=== PATIENT | female | born 1990 | race Caucasian/White ===

== ENCOUNTER 2018-01-14 11:29 | Emergency (ER) | payer BC ==
[2018-01-14] MEDS ORDERED: NA CHLORIDE 0.9% 1,000 ML ONE (12:31)
[2018-01-14 12:45] LABS: Absolute Lymphocytes (CBC) 2.3 K/uL (0.7-4.9); Absolute Monocytes 0.5 K/uL (0.1-1.3); Absolute Neutrophil 13.2 K/uL (1.8-8.0); Basophils % 0.9 % (0-1.3); Eosinophils % 0.4 % (0-4.4); Hematocrit 45.5 % (36.0-45.0); Lymphocytes % 14.2 % (15.3-44.8); MCH 31.3 pg (27.0-35.0); MPV 8.3 fL (7.6-11.3); RBC Red Blood Cell Count 4.79 M/uL (3.86-4.86)
[2018-01-14 12:57] LABS: Potassium 3.9 mEq/L (3.6-5.0)
[2018-01-14 12:58] LABS: Urine Bacteria 20-50 /HPF (<20); Urine Culture Reflex Order NOT NEEDED
[2018-01-14] MEDS ORDERED: INSULIN -REGULAR HUMAN 50 UNIT/0.5 ML ML ONE (14:10)
[2018-01-14] MEDS ORDERED: ONDANSETRON 4 MG/2 ML VIAL ONE (14:11)
[2018-01-14] MEDS ORDERED: FAMOTIDINE 20 MG/2 ML VIAL IV ONE (14:11)
[2018-01-14 15:15] LABS: BUN Blood Urea Nitrogen 17 mg/dL (6-20); Bicarbonate 19 mEq/L (21-31); Glucose Level 144 mg/dL (65-120); Potassium 3.7 mEq/L (3.6-5.0); Sodium Level 134 mEq/L (135-145)
--- NOTE | 2018-01-14 16:19 | EDPHYS ---
Physician Documentation [facility] Name: Roseann Rosen Age: 27 yrs Sex: Female : 1990 Arrival Date: 01/14/2018 Time: 11:29 Bed 8 Private MD: ED Physician Dorian Kumar HPI: 01/14 18:17 This 27 yrs old Female presents to ER via Ambulatory with complaints of kdr Vomiting. 18:17 The patient presents to the emergency department with nausea, that is mild, vomiting, kdr that is intermittent. Onset: The symptoms/episode began/occurred 3 day(s) ago. Possible causes: DKA. The symptoms are aggravated by nothing. The symptoms are alleviated by nothing. Associated signs and symptoms: Pertinent positives: nausea, vomiting. Severity of symptoms: At their worst the symptoms were mild in the emergency department the symptoms are unchanged. The patient has experienced similar episodes in the past, a few times. The patient has not recently seen a physician. LIBRARIAN HEAD: 12:04 LMP 12/18/2017 Historical: - Allergies: 12:04 No Known Allergies; - Home Meds: 12:04 Novolog 100 unit/mL Sub-Q soln [Active]; insulin pump Novolog [Active]; - PMHx: 12:04 Diabetes - IDDM; bone spurrs; - PSHx: 12:04 None; L wrist for bone spurr, L shoulder bone spurr,; wisdom teeth removal; ch - Immunization history:: Adult Immunizations up to date, Flu vaccine is not up to date. - Social history:: Smoking status: Patient uses tobacco products, smokes one-half pack cigarettes per day, Patient uses alcohol, weekly. Patient/guardian denies using street drugs. ROS: 18:17 Constitutional: Negative for fever, chills, and weight loss, Eyes: Negative for injury, kdr pain, redness, and discharge, Neck: Negative for injury, pain, and swelling, Cardiovascular: Negative for chest pain, palpitations, and edema, Respiratory: Negative for shortness of breath, cough, wheezing, and pleuritic chest pain, Back: Negative for injury and pain, : Negative for injury, bleeding, discharge, and swelling, MS/Extremity: Negative for injury and deformity, Skin: Negative for injury, rash, and discoloration, Neuro: Negative for headache, weakness, numbness, tingling, and seizure activity. Psych: Negative for depression, anxiety, suicide ideation, homicidal ideation, and hallucinations, Allergy/Immunology: Negative for hives, rash, and allergies, Hematologic/Lymphatic: Negative for swollen nodes, abnormal bleeding, and unusual bruising. 18:17 Endocrine: Positive for polyuria. Exam: 18:17 Constitutional: This is a well developed, well nourished patient who is awake, alert, kdr and in no acute distress. Head/Face: Normocephalic, atraumatic. Eyes: Pupils equal round and reactive to light, extra-ocular motions intact. Lids and lashes normal. Conjunctiva and sclera are non-icteric and not injected. Cornea within normal limits. Periorbital areas with no swelling, redness, or edema. Neck: Trachea midline, no thyromegaly or masses palpated, and no cervical lymphadenopathy. Supple, full range of motion without nuchal rigidity, or vertebral point tenderness. No Meningismus. Chest/axilla: Normal chest wall appearance and motion. Nontender with no deformity. No lesions are appreciated. Cardiovascular: Regular rate and rhythm with a normal S1 and S2. No gallops, murmurs, or rubs. Normal PMI, no JVD. No pulse deficits. Respiratory: Lungs have equal breath sounds bilaterally, clear to auscultation and percussion. No rales, rhonchi or wheezes noted. No increased work of breathing, no retractions or nasal flaring. Abdomen/GI: Soft, non-tender, with normal bowel sounds. No distension or tympany. No guarding or rebound. No evidence of tenderness throughout. Back: No spinal tenderness. No costovertebral tenderness. Full range of motion. Skin: Warm, dry with normal turgor. Normal color with no rashes, no lesions, and no evidence of cellulitis. MS/ Extremity: Pulses equal, no cyanosis. Neurovascular intact. Full, normal range of motion. Neuro: Awake and alert, GCS 15, oriented to person, place, time, and situation. Cranial nerves II-XII grossly intact. Motor strength 5/5 in all extremities. Sensory grossly intact. Cerebellar exam normal. Normal gait. Psych: Awake, alert, with orientation to person, place and time. Behavior, mood, and affect are within normal limits. Vital Signs: 12:04 BP 116 / 82; Pulse 122; Resp 14; Temp 98; Pulse Ox 99% on R/A; Weight 56.7 kg; Height 5 ch ft. (152.40 cm); Pain 8/10; 14:17 BP 110 / 66; Pulse 87; Resp 16 S; Pulse Ox 98% on R/A; Pain 8/10; sg 12:04 Body Mass Index 24.41 (56.70 kg, 152.40 cm) MDM: 16:18 Patient medically screened. kdr 18:17 Data reviewed: vital signs, nurses notes, lab test result(s). Counseling: I had a kdr detailed discussion with the patient and/or guardian regarding: the historical points, exam findings, and any diagnostic results supporting the discharge/admit diagnosis, lab results, the need for outpatient follow up. 01/14 12:29 Order name: CBC with Diff; Complete Time: 13:24 kdr 01/14 12:29 Order name: Chem 7; Complete Time: 13:24 kdr 01/14 12:34 Order name: Urine Microscopic Only; Complete Time: 13:24 jb1 01/14 12:34 Order name: Urine Culture [facility] 01/14 12:41 Order name: Urine Dipstick--Ancillary (enter results) bd 01/14 12:41 Order name: Urine --Ancillary (enter results) bd 01/14 12:29 Order name: Urine Dipstick-Ancillary (obtain specimen); Complete Time: 12:29 kdr 01/14 14:20 Order name: Chem 7: Draw 30 minutes after insulin and fluids complete; Complete Time: kdr 16:13 01/14 15:00 Order name: Glucose, Ancillary Testing; Complete Time: 16:13 EDWV 01/14 15:00 Order name: Glucose, Ancillary Testing; Complete Time: 16:13 EDWV 01/14 12:29 Order name: Urine Test (obtain specimen); Complete Time: 12:29 kdr Administered Medications: 12:36 Drug: NS 0.9% 1000 ml Route: IV; Rate: 1 bolus; Site: right forearm; sg 14:14 Drug: Zofran 4 mg Route: IVP; Site: right forearm; sg 15:00 Follow up: Response: No adverse reaction; Nausea is decreased sg 14:14 Drug: Pepcid 20 mg Route: IVP; Site: right forearm; sg 15:00 Follow up: Response: No adverse reaction; Nausea is decreased sg 14:14 Drug: Insulin Regular Human 4 units {Co-Signature: jacey (Jessica Duff RN).} Route: sg IVP; Site: right forearm; 15:00 Follow up: Response: No adverse reaction; Blood sugar is lowered; 139 sg Point of Care Testing: Blood Glucose: 12:15 Blood Glucose: 222 mg/dL; Ranges: Critical Glucose Levels:Adult <50 mg/dl or >400 mg/dl <40 mg/dl or >180 mg/dl Disposition: 01/14/18 16:18 Discharged to Home. Impression: Vomiting, Hyperglycemia, unspecified. - Condition is Stable. - Discharge Instructions: Hyperglycemia, Nausea and Vomiting, [id number], Blood Glucose Monitoring, Adult. - Prescriptions for Zofran 4 mg Oral Tablet - take 1 tablet by ORAL route every 12 hours As needed; 6 tablet. - Work release form, Medication Reconciliation Form, Thank You Letter form. - Follow up: Private Physician; When: 2 - 3 days; Reason: If symptoms return, Further diagnostic work-up, Recheck today's complaints, Continuance of care, Re-evaluation by your physician. - Problem is an acute exacerbation. - Symptoms have improved. Signatures: Dispatcher [employer] Zelda Walker RN RN Naveen Lofton RN RN sg Rittger, Kevin, MD MD [facility] Jessica mari Corrections: (The following items were deleted from the chart) 16:32 16:18 01/14/2018 16:18 Discharged to Home. Impression: Vomiting; Hyperglycemia, sg unspecified. Condition is Stable. Forms are Medication Reconciliation Form, Thank You Letter, Antibiotic Education, Prescription Opioid Use. Follow up: Private Physician; When: 2 - 3 days; Reason: If symptoms return, Further diagnostic work-up, Recheck today's complaints, Continuance of care, Re-evaluation by your physician. Problem is an acute exacerbation. Symptoms have improved. kdr
--- NOTE | 2018-01-14 16:19 | ER ---
Nurse's Notes [facility] Name: Roseann Rosen Age: 27 yrs Sex: Female : 1990 Arrival Date: 01/14/2018 Time: 11:29 Bed 8 Private MD: Diagnosis: Vomiting;Hyperglycemia, unspecified Presentation: 01/14 12:02 Presenting complaint: Patient states: "I am in DKA" blood sugars reading HI since Friday. vomiting for the past 3 days, "ketones in my urine over 160". Transition of care: patient was not received from another setting of care. Onset of symptoms was January 11, 2018. Initial Sepsis Screen: Does the patient meet any 2 criteria? No. Patient's initial sepsis screen is negative. Does the patient have a suspected source of infection? No. Patient's initial sepsis screen is negative. Care prior to arrival: None. 12:02 Method Of Arrival: Ambulatory 12:02 Acuity: DRE 2 Triage Assessment: 12:04 General: Appears in no apparent distress. uncomfortable, Behavior is calm, cooperative, appropriate for age. Pain: Complains of pain in throat Pain currently is 8 out of 10 on a pain scale. Neuro: No deficits noted. GI: Reports nausea, vomiting. HEALTHCARE APPLICATIONS ANALYST: 12:04 [facility] 12/18/2017 Historical: - Allergies: 12:04 No Known Allergies; - Home Meds: 12:04 Novolog 100 unit/mL Sub-Q soln [Active]; insulin pump Novolog [Active]; - PMHx: 12:04 Diabetes - IDDM; bone spurrs; - PSHx: 12:04 None; L wrist for bone spurr, L shoulder bone spurr,; wisdom teeth removal; - Immunization history:: Adult Immunizations up to date, Flu vaccine is not up to date. - Social history:: Smoking status: Patient uses tobacco products, smokes one-half pack cigarettes per day, Patient uses alcohol, weekly. Patient/guardian denies using street drugs. Screenin:10 Abuse screen: Denies threats or abuse. Denies injuries from another. Nutritional sg screening: No deficits noted. Tuberculosis screening: No symptoms or risk factors identified. Never had TB. Fall Risk None identified. Assessment: 12:10 General: Appears in no apparent distress. comfortable, well groomed, well developed, sg well nourished, Behavior is calm, cooperative, appropriate for age. Pain: Denies pain. Neuro: No deficits noted. Cardiovascular: Heart tones S1 S2 present Capillary refill is brisk in bilateral fingers Patient's skin is warm and dry. Chest pain is denied. Respiratory: Airway is patent Respiratory effort is even, unlabored, Respiratory pattern is regular, symmetrical, Breath sounds are clear. GI: Abdomen is flat, non-distended, Bowel sounds present X 4 quads. Reports nausea, vomiting. : No signs and/or symptoms were reported regarding the genitourinary system. EENT: No signs and/or symptoms were reported regarding the EENT system. Derm: Skin is pink, warm \\T\\ dry. Musculoskeletal: No signs and/or symptoms reported regarding the musculoskeletal system. 13:10 Reassessment: Patient appears in no apparent distress at this time. Patient and/or sg family updated on plan of care and expected duration. Pain level reassessed. Patient is alert, oriented x 3, equal unlabored respirations, skin warm/dry/pink. Patient denies pain at this time. Vital Signs: 12:04 BP 116 / 82; Pulse 122; Resp 14; Temp 98; Pulse Ox 99% on R/A; Weight 56.7 kg; Height 5 ch ft. (152.40 cm); Pain 8/10; 14:17 BP 110 / 66; Pulse 87; Resp 16 S; Pulse Ox 98% on R/A; Pain 8/10; sg 12:04 Body Mass Index 24.41 (56.70 kg, 152.40 cm) ED Course: 11:29 Patient arrived in ED. as 11:30 Dorian Kumar MD is Attending Physician. [facility] 12:03 Triage completed. 12:04 Arm band placed on left wrist. Patient placed in an exam room, on a stretcher. 12:15 Zelda Rivera, RN is Primary Nurse. 12:20 Naveen Lofton, RN is Primary Nurse. sg 12:34 Initial lab(s) drawn, by me, sent to lab. Urine collected: clean catch specimen, jb1 cloudy, gemini colored. Inserted saline lock: 22 gauge in right antecubital area, using aseptic technique. Blood collected. 12:50 Patient has correct armband on for positive identification. Bed in low position. Call sg light in reach. Side rails up X2. Pulse ox on. NIBP on. 12:50 No provider procedures requiring assistance completed. sg 14:44 Repeat lab(s) drawn. by me, sent to lab. sg 15:15 IV discontinued, intact, bleeding controlled, No redness/swelling at site. Pressure sg dressing applied. Administered Medications: 12:36 Drug: NS 0.9% 1000 ml Route: IV; Rate: 1 bolus; Site: right forearm; sg 14:14 Drug: Zofran 4 mg Route: IVP; Site: right forearm; sg 15:00 Follow up: Response: No adverse reaction; Nausea is decreased sg 14:14 Drug: Pepcid 20 mg Route: IVP; Site: right forearm; sg 15:00 Follow up: Response: No adverse reaction; Nausea is decreased sg 14:14 Drug: Insulin Regular Human 4 units {Co-Signature: sv (Jessica Duff RN).} Route: sg IVP; Site: right forearm; 15:00 Follow up: Response: No adverse reaction; Blood sugar is lowered; 139 sg Point of Care Testing: Blood Glucose: 12:15 Blood Glucose: 222 mg/dL; Ranges: Intake: Outcome: 16:18 Discharge ordered by . kdr 16:25 Discharged to home ambulatory, with family. sg 16:25 Condition: good 16:25 Discharge instructions given to patient, Instructed on discharge instructions, follow up and referral plans. safety practices, Demonstrated understanding of instructions, follow-up care, medications, Prescriptions given X 1. 16:32 Patient left the ED. sg Signatures: Roldan Lew jb1 Zelda Rivera RN RN Naveen Lofton RN RN Dorian Kumar MD MD kdr Martinez, Amelia as Jessica mari Corrections: (The following items were deleted from the chart) 13:53 12:10 GI: Abdomen is flat, non-distended, Bowel sounds present X 4 quads. sg sg
[2018-01-14 16:39] VITALS: TEMP 98
[2018-01-14 16:40] VITALS: BP 110/66; O2SAT 98
[2018-01-14 17:34] LABS: Urine Blood NEGATIVE (NEG); Urine Glucose 2+ (NEG); Urine Protein 1+ (NEG); Urine Specific Gravity 1.025 (1.005-1.030)
[2018-01-30] MEDS ORDERED: ONDANSETRON 4 MG/2 ML VIAL IV PRN (21:34)
[2018-01-30] MEDS ORDERED: INSULIN -REGULAR HUMAN 100 UNIT in NA CHLORIDE 0.9% 100 ML IV SCH (21:45)
[2018-01-30] MEDS ORDERED: D5 0.45 NS 1,000 ML IV SCH (22:00)
[2018-01-30] MEDS ORDERED: NACHLORIDE 0.45% 1,000 ML IV SCH (22:00)
--- OUTSIDE RECORDS SUMMARY | 2018-01-30 22:02 | XMS REPORT ---
:1990 Author Organization [facility] Address [address] [place] [address] Dr. Love [address] [place] [id number] Care Team Providers Name Role Phone RIKY [...] Reference Range Comments KETONES, BLOOD (BEAKER) (test xllg=6514) 0.4 mmol/L <0.4 BASIC METABOLIC [id number] 21:43:00 Test Item Value Reference Range Comments SODIUM (BEAKER) (test 141 meq/L 136-145 tiry=120) POTASSIUM (BEAKER) (test 2.9 meq/L 3.5-5.1 klev=618) CHLORIDE (BEAKER) (test 115 meq/L 98-107 tgpp=592) CO2 (BEAKER) (test 15 meq/L 22-29 peoy=245) BLOOD UREA NITROGEN 10 mg/dL 7-21 (BEAKER) (test laxs=085) CREATININE (BEAKER) (test 0.70 mg/dL 0.57-1.25 nunv=490) GLUCOSE RANDOM (BEAKER) 200 mg/dL 70-105 (test qmjb=428) CALCIUM (BEAKER) (test 7.1 mg/dL 8.4-10.2 zknl=026) EGFR (BEAKER) (test 103 mL/min/1.73 sq m ESTIMATED GFR IS NOT peii=7983) ACCURATE CREATININE CLEARANCE IN PREDICTING GLOMERULAR FILTRATION RATE. ESTIMATED GFR IS NOT APPLICABLE FOR DIALYSIS PATIENTS. URINALYSIS W/ [id number] 20:41:00 Test Item Value Reference Range Comments COLOR (BEAKER) (test rbyn=670) Light Yellow CLARITY (BEAKER) (test ldkn=935) Clear SPECIFIC GRAVITY UA (BEAKER) (test 1.015 1.001-1.035 mgwi=419) PH UA (BEAKER) (test umyj=042) 5.0 5.0-8.0 PROTEIN UA (BEAKER) (test uxaa=822) Negative Negative GLUCOSE UA (BEAKER) (test qllj=636) >1000 mg/dL Negative KETONES UA (BEAKER) (test gfgx=224) Negative Negative BILIRUBIN UA (BEAKER) (test ftud=313) Negative Negative BLOOD UA (BEAKER) (test weah=334) Negative Negative NITRITE UA (BEAKER) (test pcts=810) Negative Negative LEUKOCYTE ESTERASE UA (BEAKER) (test Negative Negative cfis=246) UROBILINOGEN UA (BEAKER) (test stfu=017) 0.2 mg/dL 0.2-1.0 RBC UA (BEAKER) (test rrxq=131) 0 /HPF WBC UA (BEAKER) (test ttmp=432) < /HPF BACTERIA (BEAKER) (test mjza=978) Rare SQUAMOUS EPITHELIAL (BEAKER) (test 1 /HPF zevu=976) SOURCE(BEAKER) (test iigv=4679) Urine, Clean Catch SCREEN, [id number] 20:32:00 Test Item Value Reference Range Comments TEST URINE (BEAKER) (test zzba=546) Negative POCT-GLUCOSE [id number] 20:10:00 Test Item Value Reference Range Comments POC-GLUCOSE METER (BEAKER) 348 mg/dL 70-110 TESTED AT [address] (test nusf=7627) [facility] [id number] BASIC METABOLIC [id number] 19:39:00 Test Item Value Reference Range Comments SODIUM (BEAKER) (test 132 meq/L 136-145 xpaj=169) POTASSIUM (BEAKER) (test 3.9 meq/L 3.5-5.1 xrwu=852) CHLORIDE (BEAKER) (test 100 meq/L 98-107 ashl=806) CO2 (BEAKER) (test 17 meq/L 22-29 wwkd=276) BLOOD UREA NITROGEN 13 mg/dL 7-21 (BEAKER) (test dtxx=241) CREATININE (BEAKER) (test 1.00 mg/dL 0.57-1.25 jddp=449) GLUCOSE RANDOM (BEAKER) 524 mg/dL 70-105 (test olic=166) CALCIUM (BEAKER) (test 8.8 mg/dL 8.4-10.2 irqy=109) EGFR (BEAKER) (test mL/min/1.73 sq m INSUFFICIENT CLINICAL DATA nflx=8377) TO CALCULATE ESTIMATED GFR. CBC W/PLT COUNT & AUTO [id number] 19:08:00 Test Item Value Reference Range Comments WHITE BLOOD CELL COUNT (BEAKER) (test fffr=496) 10.0 K/ L 4.0-10.0 RED BLOOD CELL COUNT (BEAKER) (test sklw=423) 4.59 M/ L 4.00-5.00 HEMOGLOBIN (BEAKER) (test enex=806) 15.0 GM/DL 12.0-15.0 HEMATOCRIT (BEAKER) (test nkei=396) 43.3 % 36.0-45.0 MEAN CORPUSCULAR VOLUME (BEAKER) (test ehuw=302) 94.3 fL 82.0-99.0 MEAN CORPUSCULAR HEMOGLOBIN (BEAKER) (test 32.6 pg 27.0-33.0 tmyj=714) MEAN CORPUSCULAR HEMOGLOBIN CONC (BEAKER) (test 34.5 GM/DL 32.0-36.0 mtrh=114) RED CELL DISTRIBUTION WIDTH (BEAKER) (test 12.8 % 10.3-14.2 huro=799) PLATELET COUNT (BEAKER) (test ossf=707) 238 K/CU MM 150-430 MEAN PLATELET VOLUME (BEAKER) (test kjzw=766) 7.3 fL 6.5-10.5 NUCLEATED RED BLOOD CELLS (BEAKER) (test 0 /100 WBC 0-0 fwkf=283) NEUTROPHILS RELATIVE PERCENT (BEAKER) (test 63 % buzl=473) LYMPHOCYTES RELATIVE PERCENT (BEAKER) (test 33 % lkmy=596) MONOCYTES RELATIVE PERCENT (BEAKER) (test 3 % iavc=819) EOSINOPHILS RELATIVE PERCENT (BEAKER) (test 0 % hjfi=862) BASOPHILS RELATIVE PERCENT (BEAKER) (test 1 % dcty=168) NEUTROPHILS ABSOLUTE COUNT (BEAKER) (test 6.30 K/ L 1.80-8.00 hmjm=878) LYMPHOCYTES ABSOLUTE COUNT (BEAKER) (test 3.24 K/ L 1.48-4.50 nswm=113) MONOCYTES ABSOLUTE COUNT (BEAKER) (test 0.27 K/ L 0.00-1.30 tqyu=381) EOSINOPHILS ABSOLUTE COUNT (BEAKER) (test 0.05 K/ L 0.00-0.50 yyab=683) BASOPHILS ABSOLUTE COUNT (BEAKER) (test 0.09 K/ L 0.00-0.20 dpct=625) 0.00POCT-GLUCOSE [id number] 18:37:00 Test Item Value Reference Range Comments POC-GLUCOSE METER (BEAKER) 458 mg/dL 70-110 TESTED AT [facility] [address] (test kmqc=3997) [facility] [id number]
--- OUTSIDE RECORDS SUMMARY | 2018-01-30 22:02 | XMS REPORT | Clinical Summary ---
:1990 Author Organization [facility] Address [address] [place] [address] Phone Care Team Providers Name Role Phone [...]
[2018-01-31] MEDS ORDERED: CEFTRIAXONE 1 GM/NS 50 ML 1 GM/50 ML BAG IV SCH (09:00)
[2018-01-31] MEDS ORDERED: ENOXAPARIN 40 MG/0.4 ML SQ SCH (09:00)
== END 2018-01-14 16:32 | disposition home or self-care (01) ==
LOC: ER 11:29 → UNDOADMIN 01-30 21:59 → ERHOLD 01-30 21:59
DX: E11.65 Type 2 diabetes mellitus with hyperglycemia (principal); F17.210 Nicotine dependence, cigarettes, uncomplicated; Z79.4 Long term (current) use of insulin; Z96.41 Presence of insulin pump (external) (internal)
CPT/HCPCS: 36415; 80048; 81003; 81015; 81025; 82962; 85025; 87086; 87088; 96374; 96375; 99284; J0696; J2405; J7030

== ENCOUNTER 2018-01-30 16:09 | Inpatient (IN) | payer BC ==
--- OUTSIDE RECORDS SUMMARY | 2018-01-30 16:11 | XMS REPORT | Clinical Summary ---
:1990 Author Organization [facility] Address [address] [place] [address] Phone Care Team Providers Name Role Phone Unavailable Primary Care Provider Unavailable Allergies No Known Allergies Current Medications Prescription Sig. Disp. Refills Start Date End Date Status insulin aspart Inject subcutaneously 3 Active (NOVOLOG) 100 unit/mL (three) times daily InPn with meals. ibuprofen Take 600 mg by mouth Active (ADVIL,MOTRIN) 600 MG every 6 (six) hours as tablet needed for Pain. Active Problems Not on file Social History Tobacco Use Types Packs/Day Years Used Date Current Every Day Smoker Cigarettes 0.25 Tobacco Cessation: Ready to Quit: No Alcohol Use Drinks/Week oz/Week Comments Yes occasional Sex Assigned at Date Recorded Not on file Last Filed Vital Signs Not on file Plan of Treatment Not on file Results Not on fileafter 01/29/2017
--- OUTSIDE RECORDS SUMMARY | 2018-01-30 16:11 | XMS REPORT ---
:1990 [facility] Address [address] [place] [address] Dr. Love [address] [place] [id number] Care Team Providers Name Role Phone RIKY PRATHER Unavailable Unavailable Problems This patient has no known problems. Allergies, Adverse Reactions, Alerts This patient has no known allergies or adverse reactions. Medications This patient has no known medications. Results Test Description Test Time Test Comments Text Results Atomic Results Result Comments KETONE, BLOOD 2016-12-01 22:22:00 Test Item Value Reference Range Comments KETONES, BLOOD (BEAKER) (test obki=3270) 0.4 mmol/L <0.4 BASIC METABOLIC [id number] 21:43:00 Test Item Value Reference Range Comments SODIUM (BEAKER) (test 141 meq/L 136-145 kcid=140) POTASSIUM (BEAKER) (test 2.9 meq/L 3.5-5.1 dryc=298) CHLORIDE (BEAKER) (test 115 meq/L 98-107 ifyn=466) CO2 (BEAKER) (test 15 meq/L 22-29 fiiz=111) BLOOD UREA NITROGEN 10 mg/dL 7-21 (BEAKER) (test hyfr=730) CREATININE (BEAKER) (test 0.70 mg/dL 0.57-1.25 zwre=796) GLUCOSE RANDOM (BEAKER) 200 mg/dL 70-105 (test pwpo=948) CALCIUM (BEAKER) (test 7.1 mg/dL 8.4-10.2 abnl=056) EGFR (BEAKER) (test 103 mL/min/1.73 sq m ESTIMATED GFR IS NOT hmlk=8582) ACCURATE CREATININE CLEARANCE IN PREDICTING GLOMERULAR FILTRATION RATE. ESTIMATED GFR IS NOT APPLICABLE FOR DIALYSIS PATIENTS. URINALYSIS W/ [id number] 20:41:00 Test Item Value Reference Range Comments COLOR (BEAKER) (test isdp=962) Light Yellow CLARITY (BEAKER) (test ijav=895) Clear SPECIFIC GRAVITY UA (BEAKER) (test 1.015 1.001-1.035 rueb=127) PH UA (BEAKER) (test jnrj=085) 5.0 5.0-8.0 PROTEIN UA (BEAKER) (test xmaf=734) Negative Negative GLUCOSE UA (BEAKER) (test bqfx=539) >1000 mg/dL Negative KETONES UA (BEAKER) (test doeo=626) Negative Negative BILIRUBIN UA (BEAKER) (test nfmm=131) Negative Negative BLOOD UA (BEAKER) (test gkxt=041) Negative Negative NITRITE UA (BEAKER) (test clww=932) Negative Negative LEUKOCYTE ESTERASE UA (BEAKER) (test Negative Negative pesc=788) UROBILINOGEN UA (BEAKER) (test ebjj=470) 0.2 mg/dL 0.2-1.0 RBC UA (BEAKER) (test ssvo=631) 0 /HPF WBC UA (BEAKER) (test ylsz=107) < /HPF BACTERIA (BEAKER) (test uhzu=869) Rare SQUAMOUS EPITHELIAL (BEAKER) (test 1 /HPF umoy=067) SOURCE(BEAKER) (test dvue=3723) Urine, Clean Catch SCREEN, [id number] 20:32:00 Test Item Value Reference Range Comments TEST URINE (BEAKER) (test itni=231) Negative POCT-GLUCOSE [id number] 20:10:00 Test Item Value Reference Range Comments POC-GLUCOSE METER (BEAKER) 348 mg/dL 70-110 TESTED AT [address] (test mgaa=2969) [facility] [address] BASIC METABOLIC [id number] 19:39:00 Test Item Value Reference Range Comments SODIUM (BEAKER) (test 132 meq/L 136-145 xnpx=005) POTASSIUM (BEAKER) (test 3.9 meq/L 3.5-5.1 vdey=017) CHLORIDE (BEAKER) (test 100 meq/L 98-107 urri=205) CO2 (BEAKER) (test 17 meq/L 22-29 rbgn=307) BLOOD UREA NITROGEN 13 mg/dL 7-21 (BEAKER) (test ezfk=696) CREATININE (BEAKER) (test 1.00 mg/dL 0.57-1.25 foay=690) GLUCOSE RANDOM (BEAKER) 524 mg/dL 70-105 (test bfnw=328) CALCIUM (BEAKER) (test 8.8 mg/dL 8.4-10.2 clpr=249) EGFR (BEAKER) (test mL/min/1.73 sq m INSUFFICIENT CLINICAL DATA bhij=6211) TO CALCULATE ESTIMATED GFR. CBC W/PLT COUNT & AUTO [id number] 19:08:00 Test Item Value Reference Range Comments WHITE BLOOD CELL COUNT (BEAKER) (test awim=062) 10.0 K/ L 4.0-10.0 RED BLOOD CELL COUNT (BEAKER) (test iulg=848) 4.59 M/ L 4.00-5.00 HEMOGLOBIN (BEAKER) (test zhui=546) 15.0 GM/DL 12.0-15.0 HEMATOCRIT (BEAKER) (test wuke=092) 43.3 % 36.0-45.0 MEAN CORPUSCULAR VOLUME (BEAKER) (test xgzg=500) 94.3 fL 82.0-99.0 MEAN CORPUSCULAR HEMOGLOBIN (BEAKER) (test 32.6 pg 27.0-33.0 oymr=485) MEAN CORPUSCULAR HEMOGLOBIN CONC (BEAKER) (test 34.5 GM/DL 32.0-36.0 ezwe=140) RED CELL DISTRIBUTION WIDTH (BEAKER) (test 12.8 % 10.3-14.2 wlfd=587) PLATELET COUNT (BEAKER) (test eboq=004) 238 K/CU MM 150-430 MEAN PLATELET VOLUME (BEAKER) (test lokb=033) 7.3 fL 6.5-10.5 NUCLEATED RED BLOOD CELLS (BEAKER) (test 0 /100 WBC 0-0 fehn=004) NEUTROPHILS RELATIVE PERCENT (BEAKER) (test 63 % cund=605) LYMPHOCYTES RELATIVE PERCENT (BEAKER) (test 33 % xesp=408) MONOCYTES RELATIVE PERCENT (BEAKER) (test 3 % nbia=321) EOSINOPHILS RELATIVE PERCENT (BEAKER) (test 0 % qdxv=313) BASOPHILS RELATIVE PERCENT (BEAKER) (test 1 % loaw=188) NEUTROPHILS ABSOLUTE COUNT (BEAKER) (test 6.30 K/ L 1.80-8.00 tdjs=708) LYMPHOCYTES ABSOLUTE COUNT (BEAKER) (test 3.24 K/ L 1.48-4.50 gdrq=612) MONOCYTES ABSOLUTE COUNT (BEAKER) (test 0.27 K/ L 0.00-1.30 path=568) EOSINOPHILS ABSOLUTE COUNT (BEAKER) (test 0.05 K/ L 0.00-0.50 cxiq=258) BASOPHILS ABSOLUTE COUNT (BEAKER) (test 0.09 K/ L 0.00-0.20 osuw=012) 0.00POCT-GLUCOSE [id number] 18:37:00 Test Item Value Reference Range Comments POC-GLUCOSE METER (BEAKER) 458 mg/dL 70-110 TESTED AT [facility] [address] [facility] (test dqkj=2150) [facility] [id number]
[2018-01-30] MEDS ORDERED: NA CHLORIDE 0.9% 1,000 ML ONE ×5 (16:57→21:27)
[2018-01-30] MEDS ORDERED: ONDANSETRON 4 MG/2 ML VIAL ONE ×2 (16:57→19:49)
[2018-01-30 17:01] LABS: Absolute Lymphocytes (CBC) 0.8 K/uL (0.7-4.9); Absolute Neutrophil 26.1 K/uL (1.8-8.0); Basophils % 0.1 % (0-1.3); Hematocrit 47.6 % (36.0-45.0); Lymphocytes % 2.8 % (15.3-44.8); MCH 31.2 pg (27.0-35.0); MCV 96.7 fL (80-100); MPV 9.2 fL (7.6-11.3); Monocytes % 3.7 % (3.3-12.3); RBC Red Blood Cell Count 4.92 M/uL (3.86-4.86)
[2018-01-30 17:23] LABS: Arterial Blood Carboxyhemoglob 1.5 % (0-1.5); Blood Gas Oxyhemoglobin 95.2 % (94-97); Blood O2 Saturation 97.9 % (92-98.5)
[2018-01-30 17:25] LABS: Albumin 4.7 g/dL (3.2-5.5); Bilirubin Direct 0.3 mg/dL (0-0.2); Bilirubin Total 2.6 mg/dL (0.3-1.2)
[2018-01-30 17:27] LABS: Blood Morphology Comment NOT SEEN (NOT SEEN); Platelet Estimate ADEQ; Urine White Blood Cell Casts OK
[2018-01-30 17:29] LABS: Potassium 5.1 mEq/L (3.6-5.0)
--- NOTE | 2018-01-30 17:54 | RAD REPORT ---
EXAM DESCRIPTION: RAD - Chest Single View - 01/30/2018 5:45 pm CLINICAL HISTORY: Diabetes, nausea and vomiting. COMPARISON: None. FINDINGS: Portable technique limits examination quality. The lungs are grossly clear. The heart is normal in size. No displaced fractures. IMPRESSION: No acute intrathoracic process suspected.
[2018-01-30] MEDS ORDERED: INSULIN -REGULAR HUMAN 100 UNIT in NA CHLORIDE 0.9% 100 ML IV SCH (18:00)
[2018-01-30] MEDS ORDERED: PROMETHAZINE 25 MG/ML VIAL ONE ×2 (18:02→18:41)
[2018-01-30 18:34] LABS: Urine Blood TRACE (NEG); Urine Glucose 2+ (NEG); Urine Protein 1+ (NEG); Urine pH 5.5 (5.0-7.0)
[2018-01-30 18:38] LABS: Urine Amorphous Sediment 2+ /HPF (NONE SEEN); Urine Bacteria <20 /HPF (<20); Urine Culture Reflex Order NOT NEEDED; Urine Mucus 1+ /HPF (NONE SEEN); Urine RBC <5 /HPF (NONE SEEN)
[2018-01-30 20:05] LABS: Potassium 3.9 mEq/L (3.6-5.0)
--- NOTE | 2018-01-30 20:17 | RAD REPORT ---
EXAM DESCRIPTION: CT - Abdomen Pelvis Wo Contrast - 01/30/2018 8:05 pm CLINICAL HISTORY: Abdominal pain. COMPARISON: 06/18/2016 TECHNIQUE: CT imaging of the abdomen and pelvis was performed without contrast. Solid organ, bowel a nd vascular assessment is limited due to lack of IV and oral contrast. All CT scans are performed using dose optimization technique as appropriate and may include automated exposure control or mA/KV adjustment according to patient size. FINDINGS: The lower lung carey are clear. The liver, spleen, pancreas, adrenal glands and kidneys are within normal limits for a limited non-co ntrast examination. No bowel obstruction, free air, free fluid or abscess. The appendix is normal. Small fat containing umbilical hernia. Small amount of fluid is seen in the pelvis. Bilateral iliac wing osteochondromas again noted without significant change. IMPRESSION: No acute intra-abdominal or pelvic findings. A limited non-contrast examination was performed as detailed.
--- NOTE | 2018-01-30 20:20 | ER ---
Nurse's Notes [facility] Name: Roseann Rosen Age: 27 yrs Sex: Female : 1990 Arrival Date: 01/30/2018 Time: 16:12 Bed 7 Private MD: out of town, doctor Diagnosis: Type 1 diabetes mellitus with ketoacidosis without coma Presentation: 01/30 16:35 Presenting complaint: Patient states: " I'm type 1 and I haven't been able to kep ph anything down for 2 days." Pt reports N/V, denies diarrhea, also c/o "tightness" in stomach, reports BGL 77 [employer] PROF[employer]. Transition of care: patient was not received from another setting of care. Onset of symptoms was January 30, 2018. Risk Assessment: Do you want to hurt yourself or someone else? Patient reports no desire to harm self or others. Initial Sepsis Screen: Does the patient meet any 2 criteria? No. Patient's initial sepsis screen is negative. Does the patient have a suspected source of infection? No. Patient's initial sepsis screen is negative. Care prior to arrival: None. 16:35 Method Of Arrival: Wheelchair ph 16:35 Acuity: DRE 2 ph Triage Assessment: 19:41 GI: Reports lower abdominal pain, nausea. 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 - Social history:: Smoking status: Patient/guardian denies using tobacco. - Ebola Screening: : No symptoms or risks identified at this time. Screenin:07 Abuse screen: Denies threats or abuse. Denies injuries from another. Nutritional rv screening: No deficits noted. Tuberculosis screening: No symptoms or risk factors identified. Fall Risk None identified. Assessment: 17:03 General: Appears in no apparent distress. comfortable, Behavior is calm, cooperative, rv Reports nausea and vomiting. Pain: Denies pain. Neuro: Level of Consciousness is awake, alert, obeys commands, Oriented to person, place, time, situation. Cardiovascular: Heart tones S1 S2 present. Respiratory: Breath sounds are clear bilaterally. GI: Pt is actively vomiting bile. : No signs and/or symptoms were reported regarding the genitourinary system. EENT: No signs and/or symptoms were reported regarding the EENT system. Derm: No signs and/or symptoms reported regarding the dermatologic system. Musculoskeletal: No signs and/or symptoms reported regarding the musculoskeletal system. 17:04 Reassessment: BGL 451, UTILITY SALES AND SERVICE MANAGER Portillo notified. sv 17:41 Reassessment: Patient appears in no apparent distress at this time. pt requesting ice iw chips and nausea medication, MAHESH Nath notified. 18:21 Reassessment: Pt vomit clear brown fluid, dry heaving, MAHESH Nath notified, Phenergan hb administered as ordered. Insulin drip started at 5 units/hr. Family at bedside. 18:47 Reassessment: Pt actively vomiting in CT. MAHESH Nath notified, repeat Phenergan hb administered as ordered. 19:18 General: Appears in no apparent distress. comfortable, Behavior is calm, cooperative, ao appropriate for age. Pain: Denies pain. Neuro: Level of Consciousness is awake, alert, obeys commands, Oriented to person, place, time, situation, Moves all extremities. Speech is normal, Facial symmetry appears normal. Cardiovascular: Heart tones S1 S2 Capillary refill < 3 seconds Patient's skin is warm and dry. Respiratory: Airway is patent Respiratory effort is even, unlabored, Respiratory pattern is regular, symmetrical, Breath sounds are clear bilaterally. GI: Pt is actively vomiting bile. : No signs and/or symptoms were reported regarding the genitourinary system. EENT: No signs and/or symptoms were reported regarding the EENT system. Derm: No signs and/or symptoms reported regarding the dermatologic system. Musculoskeletal: Circulation, motion, and sensation intact. Range of motion: intact in all extremities. 20:06 Reassessment: Patient appears in no apparent distress at this time. Patient and/or ao family updated on plan of care and expected duration. Pain level reassessed. Patient is alert, oriented x 3, equal unlabored respirations, skin warm/dry/pink. Patient agree to go to CT. Patient keep refusing CT because she would not be able to lay flat. Patient has been medicated with Zofran. 21:10 Reassessment: Patient appears in no apparent distress at this time. Patient and/or ao family updated on plan of care and expected duration. Pain level reassessed. Patient is alert, oriented x 3, equal unlabored respirations, skin warm/dry/pink. 22:51 Reassessment: Patient appears in no apparent distress at this time. Patient and/or ao family updated on plan of care and expected duration. Pain level reassessed. Patient is alert, oriented x 3, equal unlabored respirations, skin warm/dry/pink. 23:50 Reassessment: Patient appears in no apparent distress at this time. Patient and/or ao family updated on plan of care and expected duration. Pain level reassessed. Patient is alert, oriented x 3, equal unlabored respirations, skin warm/dry/pink. 01/31 00:41 Reassessment: Patient is ER hold. See [facility] for future documentation. ao Vital Signs: 01/30 16:38 BP 137 / 87; Pulse 134; Resp 14; Temp 98.3; Pulse Ox 99% on R/A; Weight 56.7 kg; Height ph 5 ft. 1 in. (154.94 cm); 17:30 BP 140 / 90; Pulse 122; Resp 17; Pulse Ox 100% on R/A; Pain 2/10; hb 19:18 BP 154 / 97; Pulse 116; Resp 18; Pulse Ox 100% on R/A; Pain 0/10; ao 20:44 BP 153 / 98; Pulse 118; Resp 20; Pulse Ox 100% on R/A; Pain 0/10; ao 22:47 BP 126 / 75; Pulse 118; Resp 19; Pulse Ox 100% on R/A; ao 16:38 Body Mass Index 23.62 (56.70 kg, 154.94 cm) ph ED Course: 16:12 Patient arrived in ED. mr 16:12 out of town, doctor is Private Physician. mr 16:38 Triage completed. ph 16:39 Arm band placed on. ph 16:42 Portillo Costa NP is PHCP. pm1 16:42 Arash Santiago MD is Attending Physician. pm1 17:06 Inserted saline lock: 20 gauge in right antecubital area, using aseptic technique. rv 17:08 Patient has correct armband on for positive identification. Placed in gown. Bed in low rv position. Call light in reach. Side rails up X 1. Adult w/ patient. Pulse ox on. NIBP on. 17:43 Radiology exam delayed due to test not completed at this time. eh 17:43 X-ray completed. Portable x-ray completed in exam room. Patient tolerated procedure kp1 well. 17:45 Chest Single View XRAY In Process Unspecified. EDMS 17:59 Saray Walker RN is Primary Nurse. hb 18:06 Inserted saline lock: 20 gauge in left antecubital area, using aseptic technique. rv 18:[address] vm2 18:53 Radiology exam delayed due to at this time she cannot tolerate laying flat for the scan mw3 do to constant vomitting/dry heaving. Patient moved back from CT. 19:59 Primary Nurse role handed off by Saray Walker RN rg2 20:00 Dominic Robertson RN is Primary Nurse. ao 20:04 CT completed. Patient tolerated procedure well. Patient moved to CT via stretcher. mw3 Patient moved back from CT. 20:05 Abdomen In Process Unspecified. EDMS 20:18 Vitaliy Whatley MD is Hospitalizing Provider. pm1 01/31 00:41 No provider procedures requiring assistance completed. Patient admitted, IV remains in ao place. 08:52 Primary Nurse role handed off by Dominic Robertson, CARLOS tw2 08:52 Anaya Waller RN is Primary Nurse. tw2 12:42 attempted to call report to ICU-6 at this time, was told nurse will call me back. tw2 Administered Medications: Discontinued: NS 0.9% 1000 ml IV at 100 ml/hr continuous Discontinued: NS 0.9% with KCl 20 mEq/L 1000 ml IV at 200 ml/hr continuous 01/30 17:02 Drug: NS 0.9% 1000 ml Route: IV; Rate: 1000 ml; Site: right antecubital; rv 18:46 Follow up: Response: No change in condition; IV Status: Completed infusion rv 17:02 Drug: Zofran 4 mg Route: IVP; Site: right antecubital; rv 17:09 Follow up: Response: No adverse reaction; Nausea is decreased rv 17:59 Drug: NS 0.9% 1000 ml Route: IV; Rate: 1000 ml; Site: right antecubital; hb 18:10 Drug: Phenergan 12.5 mg Route: IVP; Site: left antecubital; hb 18:43 Follow up: Response: No adverse reaction; Nausea is decreased rv 18:18 Drug: Insulin Drip - (Insulin Regular Human 100 units, NS 0.9% 100 ml) {Co-Signature: rv hb (Saray Walker RN).} Route: IV; Rate: calculated rate; Site: right antecubital; 18:46 Drug: Phenergan 12.5 mg Route: IVP; Site: left antecubital; rv 20:29 Follow up: Response: No adverse reaction ao 19:17 CANCELLED (wrong saline): NS 0.45 % 1000 ml IV at 100 ml/hr continuous ao 19:37 Drug: NS 0.9% 1000 ml Route: IV; Rate: 100 ml/hr; Site: right antecubital; ao 19:55 Drug: Zofran 4 mg Route: IVP; Site: left antecubital; ao 20:28 Follow up: Response: No adverse reaction ao 20:28 Drug: NS 0.9% with KCl 20 mEq/L 1000 ml Route: IV; Rate: 200 ml/hr; Site: right ao antecubital; 21:52 Follow up: IV Status: Completed infusion ao 20:46 Drug: NS 0.9% 1000 ml Route: IV; Rate: 1000 ml; Site: left antecubital; ao 21:48 Follow up: IV Status: Completed infusion ao 21:47 Drug: NS 0.9% 1000 ml Route: IV; Rate: 1000 ml; Site: left antecubital; ao 22:15 Drug: D5-1/2 NS 1000 ml Route: IV; Rate: 150 ml/hr; Site: left antecubital; ao Point of Care Testing: Blood Glucose: 17:02 Blood Glucose: 451 mg/dL; sv 19:37 Blood Glucose: 465 mg/dL; ao 20:35 Blood Glucose: 264 mg/dL; ao 21:46 Blood Glucose: 134 mg/dL; ao 23:01 Blood Glucose: 226 mg/dL; ao 01/31 00:17 Blood Glucose: 200 mg/dL; ao Ranges: Outcome: 01/30 20:20 Decision to Hospitalize by Provider. pm1 01/31 00:41 Admitted to ER Hold. Please see [facility] for further documentation. ao Condition: stable Instructed on the need for admit. 13:07 Patient left the ED. tw2 Signatures: Dispatcher [employer] EDLuther Marinelli rg2 Jessica Duff, RN RN Rhina Lomax mr Vega, Radha Huang, RN CARLOS Jackeline Tee RN RN Dominic Robertson RN CARLOS ao Portillo Costa, UTILITY SALES AND SERVICE MANAGER UTILITY SALES AND SERVICE MANAGER pm1 Saray Walker RN RN Anaya Waller RN RN tw2 Rosie Montemayor 2 Meche Rosado kp1 Narcisa Fregoso mw3 Dickson Gray RN CARLOS Saray Walker RN Corrections: (The following items were deleted from the chart) 01/30 16:39 16:35 Acuity: DRE 3 ph ph
--- NOTE | 2018-01-30 20:21 | EDPHYS ---
Physician Documentation [facility] Name: Roseann Rosen Age: 27 yrs Sex: Female : 1990 Arrival Date: 01/30/2018 Time: 16:12 Bed 7 Private MD: out of town, doctor ED Physician Arash Santiago HPI: 01/30 18:35 This 27 yrs old Female presents to ER via Wheelchair with complaints of pm1 Vomiting. 18:35 The patient presents to the emergency department with nausea, vomiting, that is pm1 continuous. Onset: The symptoms/episode began/occurred yesterday morning. Possible causes: Alcohol and diabetes - DKA. The symptoms are aggravated by nothing. The symptoms are alleviated by nothing. Associated signs and symptoms: Pertinent positives: abdominal pain, nausea, vomiting, sore throat from the vomiting, Pertinent negatives: diarrhea, dysuria, fever. Severity of symptoms: in the emergency department the symptoms are unchanged. The patient has experienced similar episodes in the past, several times. The patient has not recently seen a physician, [place] until Friday. Patient with onset of continuous vomiting yesterday morning. Patient is type one diabetic and has not used her insulin pump for the last month. Currently managing her DM with regular insulin SQ. After vomiting, patient with onset of generalized abdominal pain and sore throat. 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 - Social history:: Smoking status: Patient/guardian denies using tobacco. - Ebola Screening: : No symptoms or risks identified at this time. ROS: 18:45 Constitutional: Negative for fever, chills, and weight loss, Eyes: Negative for injury, pm1 pain, redness, and discharge, ENT: Negative for injury, pain, and discharge, Neck: Negative for injury, pain, and swelling, Cardiovascular: Negative for chest pain, palpitations, and edema, Respiratory: Negative for shortness of breath, cough, wheezing, and pleuritic chest pain. 18:45 Back: Negative for injury and pain, : Negative for injury, bleeding, discharge, and swelling, MS/Extremity: Negative for injury and deformity, Skin: Negative for injury, rash, and discoloration, Neuro: Negative for headache, weakness, numbness, tingling, and seizure. 18:45 Abdomen/GI: Positive for abdominal pain, nausea and vomiting, Negative for diarrhea, constipation, hematemesis, black/tarry stool. Exam: 18:45 Constitutional: This is a well developed, well nourished patient who is awake, alert, pm1 and in no acute distress. Head/Face: Normocephalic, atraumatic. Neck: Trachea midline, no thyromegaly or masses palpated, and no cervical lymphadenopathy. Supple, full range of motion without nuchal rigidity, or vertebral point tenderness. No Meningismus. Chest/axilla: Normal chest wall appearance and motion. Nontender with no deformity. No lesions are appreciated. Cardiovascular: Regular rate and rhythm with a normal S1 and S2. No gallops, murmurs, or rubs. Normal PMI, no JVD. No pulse deficits. Respiratory: Lungs have equal breath sounds bilaterally, clear to auscultation and percussion. No rales, rhonchi or wheezes noted. No increased work of breathing, no retractions or nasal flaring. 18:45 Back: No spinal tenderness. No costovertebral tenderness. Full range of motion. Skin: Warm, dry with normal turgor. Normal color with no rashes, no lesions, and no evidence of cellulitis. MS/ Extremity: Pulses equal, no cyanosis. Neurovascular intact. Full, normal range of motion. 18:45 Abdomen/GI: Inspection: abdomen appears normal, Bowel sounds: normal, Palpation: mild abdominal tenderness, diffuse, mass, is not appreciated, rebound tenderness, is not appreciated. 18:45 Neuro: Orientation: is normal, Motor: is normal, moves all fours, Sensation: is normal, no obvious gross deficits. Vital Signs: 16:38 BP 137 / 87; Pulse 134; Resp 14; Temp 98.3; Pulse Ox 99% on R/A; Weight 56.7 kg; Height ph 5 ft. 1 in. (154.94 cm); 17:30 BP 140 / 90; Pulse 122; Resp 17; Pulse Ox 100% on R/A; Pain 2/10; hb 19:18 BP 154 / 97; Pulse 116; Resp 18; Pulse Ox 100% on R/A; Pain 0/10; ao 20:44 BP 153 / 98; Pulse 118; Resp 20; Pulse Ox 100% on R/A; Pain 0/10; ao 22:47 BP 126 / 75; Pulse 118; Resp 19; Pulse Ox 100% on R/A; ao 16:38 Body Mass Index 23.62 (56.70 kg, 154.94 cm) ph MDM: 16:42 Patient medically screened. roseline 19:51 ED course: Pending CT scan prior to admission. Patient with episodes of vomiting prior pm1 to and during CT scans. 20:17 Data reviewed: vital signs. Data interpreted: Pulse oximetry: on room air is 100 %. pm1 Interpretation: normal. Counseling: I had a detailed discussion with the patient and/or guardian regarding: the historical points, exam findings, and any diagnostic results supporting the discharge/admit diagnosis, lab results, the need for further work-up and treatment in the hospital, to return to the emergency department if symptoms worsen or persist or if there are any questions or concerns that arise at home. 20:29 ED course: increased insulin to 8 units/kg/hr. Serum glucose did not drop 50 to 70 pm1 mg/dL at 0.1 unit/kg/hr initiation. 01/30 16:49 Order name: Basic Metabolic Panel; Complete Time: 17:39 pm1 01/30 16:49 Order name: CBC with Diff; Complete Time: 17:28 pm01/30 16:49 Order name: Hepatic Function; Complete Time: 17:39 pm1 01/30 16:49 Order name: Lipase; Complete Time: 17:39 pm1 01/30 16:49 Order name: Urine Microscopic Only; Complete Time: 18:45 pm1 01/30 17:05 Order name: Glucose, Ancillary Testing; Complete Time: 17:08 EDMS 01/30 17:08 Order name: CBC Smear Scan; Complete Time: 17:28 EDMS 01/30 17:12 Order name: ABG; Complete Time: 17:36 pm1 01/30 17:12 Order name: Ketone, Serum; Complete Time: 19:01 pm1 01/30 17:12 Order name: Urine Culture pm01/30 17:12 Order name: Blood Culture Adult (2) pm01/30 17:19 Order name: Procalcitonin; Complete Time: 19:01 pm1 01/30 17:19 Order name: Lactate; Complete Time: 18:10 pm1 01/30 18:25 Order name: Urine Dipstick--Ancillary (enter results); Complete Time: 18:45 ag 01/30 18:25 Order name: Urine --Ancillary (enter results); Complete Time: 18:45 ag 01/30 18:57 Order name: Glucose, Ancillary Testing; Complete Time: 19:01 EDMS 01/30 19:16 Order name: BMP; Complete Time: 20:13 ao 01/30 20:17 Order name: Magnesium; Complete Time: 20:39 fc 01/30 20:17 Order name: Phosphorus; Complete Time: 20:39 fc 01/30 22:26 Order name: Basic Metabolic Panel; Complete Time: 23:53 EDMS 01/31 00:15 Order name: Glucose, Ancillary Testing; Complete Time: 01:05 EDMS 01/31 00:15 Order name: Glucose, Ancillary Testing; Complete Time: 01:05 EDMS 01/31 00:15 Order name: Glucose, Ancillary Testing; Complete Time: 01:05 EDMS 01/31 00:15 Order name: Glucose, Ancillary Testing; Complete Time: 01:05 EDMS 01/31 00:15 Order name: Glucose, Ancillary Testing; Complete Time: 01:05 EDMS 01/31 02:11 Order name: Acetone Level; Complete Time: 03:05 EDMS 01/31 02:20 Order name: Basic Metabolic Panel; Complete Time: 03:05 EDMS 01/31 02:27 Order name: BNP B-Type Natriuretic Peptide; Complete Time: 03:05 EDMS 01/31 05:40 Order name: Phosphorus EDMS 01/31 06:16 Order name: Liver (Hepatic) Function EDMS 01/30 16:49 Order name: Glucose Level; Complete Time: 17:07 pm1 01/30 17:20 Order name: Chest Single View XRAY; Complete Time: 18:00 pm1 01/30 17:46 Order name: Abdomen ; Complete Time: 20:23 EDNM 01/31 06:45 Order name: Acetone Level EDNM 01/31 06:49 Order name: Basic Metabolic Panel [facility] 01/31 08:54 Order name: Glucose, Ancillary Testing [facility] 01/31 08:54 Order name: Glucose, Ancillary Testing [facility] 01/31 08:54 Order name: Glucose, Ancillary Testing [facility] 01/31 08:54 Order name: Glucose, Ancillary Testing [facility] 01/31 08:54 Order name: Glucose, Ancillary Testing [facility] 01/31 08:54 Order name: Glucose, Ancillary Testing [facility] 01/31 12:05 Order name: Basic Metabolic Panel [facility] 01/31 12:05 Order name: Phosphorus [facility] 01/31 12:05 Order name: T4 Free [facility] 01/31 12:05 Order name: Magnesium [facility] 01/31 12:05 Order name: Thyroid Stimulating Hormone [facility] 01/31 12:05 Order name: Folic Acid, Serum (Folate) [facility] 01/31 12:05 Order name: Vitamin B12 Level [facility] 01/30 16:49 Order name: Urine Test (obtain specimen); Complete Time: 18:19 pm01/30 16:49 Order name: IV Saline Lock; Complete Time: 17:03 pm01/30 16:49 Order name: Labs collected and sent; Complete Time: 17:03 pm01/30 16:49 Order name: Urine Dipstick-Ancillary (obtain specimen); Complete Time: 18:20 pm01/30 17:12 Order name: Straight Cath - Urine; Complete Time: 18:19 pm01/30 19:16 Order name: Fingerstick Glucose; Complete Time: 19:36 ao Administered Medications: Discontinued: NS 0.9% 1000 ml IV at 100 ml/hr continuous Discontinued: NS 0.9% with KCl 20 mEq/L 1000 ml IV at 200 ml/hr continuous 17:02 Drug: NS 0.9% 1000 ml Route: IV; Rate: 1000 ml; Site: right antecubital; rv 18:46 Follow up: Response: No change in condition; IV Status: Completed infusion rv 17:02 Drug: Zofran 4 mg Route: IVP; Site: right antecubital; rv 17:09 Follow up: Response: No adverse reaction; Nausea is decreased rv 17:59 Drug: NS 0.9% 1000 ml Route: IV; Rate: 1000 ml; Site: right antecubital; hb 18:10 Drug: Phenergan 12.5 mg Route: IVP; Site: left antecubital; hb 18:43 Follow up: Response: No adverse reaction; Nausea is decreased rv 18:18 Drug: Insulin Drip - (Insulin Regular Human 100 units, NS 0.9% 100 ml) {Co-Signature: rv hb (Saray Walker RN).} Route: IV; Rate: calculated rate; Site: right antecubital; 18:46 Drug: Phenergan 12.5 mg Route: IVP; Site: left antecubital; rv 20:29 Follow up: Response: No adverse reaction ao 19:17 CANCELLED (wrong saline): NS 0.45 % 1000 ml IV at 100 ml/hr continuous ao 19:37 Drug: NS 0.9% 1000 ml Route: IV; Rate: 100 ml/hr; Site: right antecubital; ao 19:55 Drug: Zofran 4 mg Route: IVP; Site: left antecubital; ao 20:28 Follow up: Response: No adverse reaction ao 20:28 Drug: NS 0.9% with KCl 20 mEq/L 1000 ml Route: IV; Rate: 200 ml/hr; Site: right ao antecubital; 21:52 Follow up: IV Status: Completed infusion ao 20:46 Drug: NS 0.9% 1000 ml Route: IV; Rate: 1000 ml; Site: left antecubital; ao 21:48 Follow up: IV Status: Completed infusion ao 21:47 Drug: NS 0.9% 1000 ml Route: IV; Rate: 1000 ml; Site: left antecubital; ao 22:15 Drug: D5-1/2 NS 1000 ml Route: IV; Rate: 150 ml/hr; Site: left antecubital; ao Point of Care Testing: Blood Glucose: 17:02 Blood Glucose: 451 mg/dL; sv 19:37 Blood Glucose: 465 mg/dL; ao 20:35 Blood Glucose: 264 mg/dL; ao 21:46 Blood Glucose: 134 mg/dL; ao 23:01 Blood Glucose: 226 mg/dL; ao 01/31 00:17 Blood Glucose: 200 mg/dL; ao Ranges: Critical Glucose Levels:Adult <50 mg/dl or >400 mg/dl <40 mg/dl or >180 mg/dl Disposition: 01/30/18 20:20 Hospitalization ordered by Vitaliy Whatley for Inpatient Admission. Preliminary diagnosis is Type 1 diabetes mellitus with ketoacidosis without coma. - Bed requested for Intensive Care Unit. - Status is Inpatient Admission. tw2 - Condition is Fair. - Problem is new. - Symptoms have improved. UTI on Admission? No Addendum: 02/03/2018 09:15 Co-signature as Attending Physician, Arash Santiago MD I agree with the assessment and c noel plan of care. Signatures: Dispatcher [employer] EDMS Luther Gonzáles rg2 Daniela Feldman, RN CARLOS dw Arash Santiago MD MD cha Hall, Patricia, RN RN Dominic Robertson RN RN ao Portillo Costa, MAHESH WEIGHER AND MIXER pm1 Saray Walker RN RN hb Anaya Waller RN CARLOS tw2 Dickson Gray RN RN Saray ingram Corrections: (The following items were deleted from the chart) 01/30 17:46 17:19 Abdomen Pelvis W Con+[id number].[id number] ordered. EDNM EDNM 19:17 19:15 NS 0.45 % 1000 ml IV at 100 ml/hr continuous ordered. ao ao 20:24 20:20 Hospitalization Ordered by Vitaliy Whatley MD for Inpatient Admission. Preliminary pm1 diagnosis is Type 1 diabetes mellitus with ketoacidosis without coma. Bed requested for Telemetry/MedSurg (Inpatient). Status is Inpatient Admission. Condition is Fair. Problem is new. Symptoms have improved. UTI on Admission? No. pm1 01/31 00:32 01/30 20:24 01/30/2018 20:20 Hospitalization Ordered by Vitaliy Whatley MD for Inpatient rg2 Admission. Preliminary diagnosis is Type 1 diabetes mellitus with ketoacidosis without coma. Bed requested for Intensive Care Unit. Status is Inpatient Admission. Condition is Fair. Problem is new. Symptoms have improved. UTI on Admission? No. pm1 01/31 12:35 00:32 01/30/2018 20:20 Hospitalization Ordered by Vitaliy Whatley MD for Inpatient dw Admission. Preliminary diagnosis is Type 1 diabetes mellitus with ketoacidosis without coma. Bed requested for [facility] ER HOLD. Status is Inpatient Admission. Condition is Fair. Problem is new. Symptoms have improved. UTI on Admission? No. rg2 12:35 12:35 01/30/2018 20:20 Hospitalization Ordered by Vitaliy Whatley MD for Inpatient dw Admission. Preliminary diagnosis is Type 1 diabetes mellitus with ketoacidosis without coma. Bed requested for Intensive Care Unit. Status is Inpatient Admission. Condition is Fair. Problem is new. Symptoms have improved. UTI on Admission? No. dw 13:07 12:35 01/30/2018 20:20 Hospitalization Ordered by Vitaliy Whatley MD for Inpatient tw2 Admission. Preliminary diagnosis is Type 1 diabetes mellitus with ketoacidosis without coma. Bed requested for Intensive Care Unit. Status is Inpatient Admission. Condition is Fair. Problem is new. Symptoms have improved. UTI on Admission? No. dw
[2018-01-30] MEDS ORDERED: NS KCL 20MEQ 1,000 ML IV ONE (20:22)
[2018-01-30 20:35] LABS: Phosphorus 3.2 mg/dL (2.5-4.3)
[2018-01-30] MEDS ORDERED: D5 0.45 NS 1,000 ML IV ONE (21:55)
[2018-01-30 22:25] LABS: Potassium 3.5 mEq/L (3.6-5.0)
[2018-01-30] MEDS: D5 0.45 NS 1,000 ML IV SCH (23:00)
[2018-01-30] MEDS ORDERED: CEFTRIAXONE 1 GM/NS 50 ML 1 GM/50 ML BAG IV SCH (23:00)
[2018-01-31] MEDS ORDERED: CEFTRIAXONE/SWI 1gm 1 GM/10 ML SYR ONE
[2018-01-31] MEDS ORDERED: ONDANSETRON 4 MG/2 ML VIAL ONE ×4 (00:14→10:47)
[2018-01-31] MEDS: ONDANSETRON 4 MG/2 ML VIAL IV PRN ×6 (00:16→22:17)
[2018-01-31 02:19] LABS: BUN Blood Urea Nitrogen 16 mg/dL (6-20); Glucose Level 131 mg/dL (65-120)
[2018-01-31 02:33] LABS: Bicarbonate 15 mEq/L (21-31); Potassium 3.3 mEq/L (3.6-5.0); Sodium Level 143 mEq/L (135-145)
[2018-01-31] MEDS: D5 0.45 NS 1,000 ML IV SCH ×9 (04:00→23:30)
[2018-01-31] MEDS ORDERED: METOCLOPRAMIDE 10 MG/2mL INJ IV SCH (04:00)
[2018-01-31] MEDS ORDERED: D5 0.45 NS 1,000 ML IV ONE (04:43)
[2018-01-31] MEDS ORDERED: METOCLOPRAMIDE 10 MG/2mL INJ ONE ×2 (05:22→08:22)
[2018-01-31 06:15] LABS: Albumin 3.1 g/dL (3.2-5.5); Bilirubin Direct 0.2 mg/dL (0-0.2)
[2018-01-31] MEDS: KCL 20 MEQ/100 mL IVPB 20 MEQ/100 ML BAG IV SCH ×4 (06:16→23:12)
[2018-01-31 06:48] LABS: BUN Blood Urea Nitrogen 16 mg/dL (6-20); Bicarbonate 18 mEq/L (21-31); Glucose Level 196 mg/dL (65-120); Potassium 3.7 mEq/L (3.6-5.0); Sodium Level 140 mEq/L (135-145)
[2018-01-31] MEDS ORDERED: GLUCAGON 1 MG/VIAL IM PRN (06:48)
[2018-01-31] MEDS ORDERED: D50W 25 GM/50 ML SYRINGE IV PRN (06:48)
[2018-01-31] MEDS ORDERED: INSULIN -REGULAR HUMAN 100 UNIT in NA CHLORIDE 0.9% 100 ML IV SCH (07:30)
[2018-01-31] MEDS ORDERED: INSULIN DETEMIR 100 UNIT/1 ML INSULIN SQ SCH (08:00)
[2018-01-31] MEDS: METOCLOPRAMIDE 10 MG/2mL INJ IV SCH ×3 (08:35→20:14)
[2018-01-31] MEDS: ENOXAPARIN 40 MG/0.4 ML SQ SCH (09:00)
[2018-01-31] MEDS ORDERED: ENOXAPARIN 40 MG/0.4 ML SQ ONE (09:22)
[2018-01-31 12:05] LABS: Folic Acid, (Folate) 4.7 ng/ml (>5.21); Magnesium 1.8 mg/dL (1.8-2.5); Phosphorus 1.3 mg/dL (2.5-4.3); Thyroid Stimulating Hormone 1.31 uIU/mL (0.34-5.60)
[2018-01-31 12:10] LABS: Potassium 3.3 mEq/L (3.6-5.0)
[2018-01-31] MEDS ORDERED: NA CHLORIDE 0.9% 1,000 ML ONE (12:10)
[2018-01-31] MEDS ORDERED: NA CHLORIDE 0.9% 1,000 ML IV ONE (12:20)
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
--- NOTE | 2018-01-31 12:53 | P.PN ---
Date of Service: 01/31/18 Came by this morning to reassess patient. Plan was to advance patient to a clear liquid diet. However, she was having persistent nausea and vomiting. I spoke to the nurse, Anaya, in the emergency room and I was informed that her insulin drip had been discontinued. Patient was not given any long-acting insulin. Her IV fluids had also been stopped. This normally leads to worsening ketoacidosis. We restarted the insulin drip and the IV fluids. If patient's blood sugars decrease then plan would be to increase or bolus dextrose instead of stopping the insulin drip as patient will start going into the ketosis without any insulin in her system. This was explained to the nurse , and we spoke also about reassessing diet at lunch time as she will not be able to tolerate her breakfast. We will give her Reglan as well as additional antiemetics as needed. Hopefully, her nausea and vomiting will resolve and we can start her on a diet for lunch and give her long-acting insulin at that time. The nurse was told that we are to continue the insulin drip for 1 hr after giving her long-acting insulin. We can stop the insulin drip 1 hr after giving her a long-acting insulin.
[2018-01-31] MEDS ORDERED: POTASSIUM PHOS 20 MM in NA CHLORIDE 0.9% 500 ML IV ONE (13:00)
[2018-01-31] MEDS ORDERED: NA CHLORIDE 0.9% 1,000 ML IV SCH (13:00)
[2018-01-31 14:04] LABS: Absolute Lymphocytes (CBC) 1.1 K/uL (0.7-4.9); Absolute Neutrophil 16.8 K/uL (1.8-8.0); Basophils % 0.7 % (0-1.3); Hematocrit 34.6 % (36.0-45.0); Lymphocytes % 5.9 % (15.3-44.8); MCH 31.2 pg (27.0-35.0); MCV 96.6 fL (80-100); MPV 8.6 fL (7.6-11.3); Monocytes % 5.4 % (3.3-12.3); RBC Red Blood Cell Count 3.59 M/uL (3.86-4.86)
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
[2018-01-31] MEDS: FOLIC ACID 1 MG in NA CHLORIDE 0.9% 50 ML IV SCH (14:36)
[2018-01-31 14:47] LABS: Barbiturates NEGATIVE; Benzodiazepines NEGATIVE; Cocaine NEGATIVE; METHAMPHETAM NEGATIVE (NEGATIVE); Opiates NEGATIVE; Phencyclidine NEGATIVE; THC Cannibis POSITIVE
[2018-01-31 16:25] LABS: Urine Appearance CLOUDY; Urine Blood 3+ (NEG); Urine Color YELLOW; Urine Glucose 3+ (NEG); Urine Protein 1+ (NEG); Urine Specific Gravity >=1.030 (1.005-1.030); Urine Urobilinogen 0.2 mg/dL (0.2-1.0)
[2018-01-31 16:54] LABS: Urine Microscopic Reflex ORDER UMIC
[2018-01-31 16:59] LABS: Urine Amorphous Sediment 2+ /HPF (NONE SEEN); Urine Bacteria >50 /HPF (<20); Urine Bilirubin 2+ (NEG); Urine Culture Reflex Order REFLEXED
[2018-01-31 20:02] VITALS: O2SAT 98
[2018-01-31] MEDS ORDERED: CEFTRIAXONE/SWI 1gm 1 GM/10 ML SYR IV SCH (21:00)
[2018-01-31 21:17] LABS: Potassium 3.4 mEq/L (3.6-5.0)
[2018-02-01 00:42] LABS: BUN Blood Urea Nitrogen 10 mg/dL (6-20); Bicarbonate 18 mEq/L (21-31); Glucose Level 124 mg/dL (65-120); Potassium 3.8 mEq/L (3.6-5.0); Sodium Level 140 mEq/L (135-145)
[2018-02-01] MEDS: METOCLOPRAMIDE 10 MG/2mL INJ IV SCH ×2 (01:42→08:00)
[2018-02-01] MEDS: ONDANSETRON 4 MG/2 ML VIAL IV PRN ×2 (03:58→19:08)
[2018-02-01 05:51] LABS: Absolute Lymphocytes (CBC) 2.2 K/uL (0.7-4.9); Absolute Monocytes 0.7 K/uL (0.1-1.3); Absolute Neutrophil 11.4 K/uL (1.8-8.0); Basophils % 1.2 % (0-1.3); Eosinophils % 0.1 % (0-4.4); Lymphocytes % 15.2 % (15.3-44.8); MCH 31.6 pg (27.0-35.0); MCV 95.8 fL (80-100); MPV 9.1 fL (7.6-11.3); Monocytes % 4.9 % (3.3-12.3); RBC Red Blood Cell Count 3.44 M/uL (3.86-4.86)
[2018-02-01 06:05] LABS: BUN Blood Urea Nitrogen 9 mg/dL (6-20); Bicarbonate 17 mEq/L (21-31); Glucose Level 142 mg/dL (65-120); Magnesium 1.7 mg/dL (1.8-2.5); Phosphorus 2.5 mg/dL (2.5-4.3); Potassium 3.5 mEq/L (3.6-5.0); Sodium Level 140 mEq/L (135-145)
[2018-02-01] MEDS ORDERED: MAGNESIUM SULFATE 1 gm IVPB 1 GM/100 ML BAG IV ONE (07:00)
[2018-02-01] MEDS ORDERED: KCL 20 MEQ/100 mL IVPB 20 MEQ/100 ML BAG IV SCH (07:30)
[2018-02-01] MEDS ORDERED: SODIUM CHLORIDE 0.9% 10ML INJ IV PRN (08:02)
[2018-02-01] MEDS: FOLIC ACID 1 MG in NA CHLORIDE 0.9% 50 ML IV SCH (08:52)
[2018-02-01] MEDS: ENOXAPARIN 40 MG/0.4 ML SQ SCH (08:52)
[2018-02-01] MEDS: PANTOPRAZOLE 40 MG INJ IVP SCH (08:52)
[2018-02-01] MEDS: D5 0.45 NS 1,000 ML IV SCH ×3 (10:04→19:08)
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
[2018-02-01] MEDS: CEFTRIAXONE/SWI 1gm 1 GM/10 ML SYR IV SCH ×2 (11:53→19:58)
[2018-02-01 19:17] LABS: BUN Blood Urea Nitrogen 7 mg/dL (6-20); Bicarbonate 16 mEq/L (21-31); Glucose Level 151 mg/dL (65-120); Sodium Level 138 mEq/L (135-145)
[2018-02-01] MEDS ORDERED: METOCLOPRAMIDE 10 MG/2mL INJ ONE (20:06)
[2018-02-01] MEDS ORDERED: METOCLOPRAMIDE 10 MG/2mL INJ IV SCH (21:00)
[2018-02-02] MEDS: D5 0.45 NS 1,000 ML IV SCH ×2 (00:12→09:00)
[2018-02-02] MEDS: ONDANSETRON 4 MG/2 ML VIAL IV PRN ×3 (00:12→10:01)
[2018-02-02 05:29] LABS: Absolute Lymphocytes (CBC) 2.7 K/uL (0.7-4.9); Absolute Monocytes 0.5 K/uL (0.1-1.3); Absolute Neutrophil 7.3 K/uL (1.8-8.0); Basophils % 0.9 % (0-1.3); Eosinophils % 0.3 % (0-4.4); Hematocrit 33.7 % (36.0-45.0); Lymphocytes % 25.1 % (15.3-44.8); MCV 95.6 fL (80-100); Monocytes % 4.8 % (3.3-12.3); RBC Red Blood Cell Count 3.53 M/uL (3.86-4.86)
[2018-02-02 05:32] LABS: BUN Blood Urea Nitrogen 7 mg/dL (6-20); Glucose Level 176 mg/dL (65-120); Magnesium 1.8 mg/dL (1.8-2.5); Phosphorus 2.9 mg/dL (2.5-4.3)
[2018-02-02 05:34] LABS: Bicarbonate 17 mEq/L (21-31); Potassium 4.1 mEq/L (3.6-5.0); Sodium Level 136 mEq/L (135-145)
[2018-02-02 05:46] VITALS: BMI 24.7
[2018-02-02] MEDS ORDERED: MAGNESIUM SULFATE 1 gm IVPB 1 GM/100 ML BAG IV ONE (06:30)
[2018-02-02] MEDS: ENOXAPARIN 40 MG/0.4 ML SQ SCH (08:24)
[2018-02-02] MEDS: PANTOPRAZOLE 40 MG INJ IVP SCH (08:24)
[2018-02-02] MEDS: FOLIC ACID 1 MG in NA CHLORIDE 0.9% 50 ML IV SCH (08:25)
[2018-02-02] MEDS: CEFTRIAXONE/SWI 1gm 1 GM/10 ML SYR IV SCH (08:26)
[2018-02-02 11:10] LABS: A1c Component 0.98 mg/dL; Hemoglobin A1c 10.2 % (4-6.0)
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
[2018-02-02] MEDS ORDERED: INSULIN DETEMIR 100 UNIT/1 ML INSULIN SQ SCH (11:18)
[2018-02-02] MEDS ORDERED: D50W 25 GM/50 ML SYRINGE IV PRN (11:19)
[2018-02-02] MEDS ORDERED: GLUCAGON 1 MG/VIAL IM PRN (11:19)
[2018-02-02] MEDS ORDERED: INSULIN -REGULAR HUMAN 50 UNIT/0.5 ML ML SQ SCH (16:30)
[2018-02-02 16:33] LABS: BUN Blood Urea Nitrogen 5 mg/dL (6-20); Bicarbonate 19 mEq/L (21-31); Glucose Level 145 mg/dL (65-120); Sodium Level 136 mEq/L (135-145)
[2018-02-02 18:29] VITALS: TEMP 98.8
[2018-02-02 18:44] LABS: BUN Blood Urea Nitrogen 5 mg/dL (6-20); Bicarbonate 19 mEq/L (21-31); Glucose Level 92 mg/dL (65-120); Potassium 4.3 mEq/L (3.6-5.0); Sodium Level 136 mEq/L (135-145)
--- NOTE | 2018-02-02 19:38 | P.DS ---
Admission Date: 01/30/18 Discharge Date: 02/02/18 Primary Care Provider: Dr. Gutierrez([place]) Disposition: ROUTINE DISCHARGE Discharge Condition: GOOD Reason for Admission: Diabetic ketoacidosis Brief History of Present Illness: Ms Rosen is a 27 years old woman with history of DM I, who was admitted to the hospital due to nausea and vomiting associated with leukocytosis and hyeprglycemia. Her anion gap was 25, she has large amount of ketons consistent with DKA. Hospital Course: The patient was admitted to ICU and started insulin drip and fluid replacement per DKA protocol. She was treated with antibiotics for UTI. Urine culture showed mixed grace. During her admission, Her anion gap was gradually decreasing until was finally closed. At this point the patient was started on SQ Levemir, and insulin drip was discontinued. The patient is currently tolerating ADA diet and is ambulatory. She is anxious to go home. Her last lab work shows normal anion gap, electrolytes WNL, BS well controlled. She will be discharged home in stable condition. 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 Will also prescribe oral antibiotics to finish her UTI treatment. Vital Signs/Physical Exam: Temp Pulse Resp BP Pulse Ox 98.8 F 75 14 135/91 H 100 02/02/18 16:00 02/02/18 18:00 02/02/18 18:00 02/02/18 18:00 02/02/18 18:00 General: Alert, In no apparent distress HEENT: PERRLA, EOMI Neck: Supple, JVD not distended Respiratory: Clear to auscultation bilaterally, Normal air movement Cardiovascular: Regular rate/rhythm, Normal S1 S2 Gastrointestinal: Normal bowel sounds, No tenderness Musculoskeletal: No tenderness Integumentary: No rashes Neurological: Normal speech, Normal tone, Normal affect Lymphatics: No axilla or inguinal lymphadenopathy Laboratory Data at Discharge: WBC 10.6 K/uL (4.3-10.9) D 02/02/18 04:45 Hgb 11.3 g/dL (12.0-15.0) L 02/02/18 04:45 Hct 33.7 % (36.0-45.0) L 02/02/18 04:45 Plt Count 183 K/uL (152-406) 02/02/18 04:45 Sodium 136 mEq/L (135-145) 02/02/18 18:15 Potassium 4.3 mEq/L (3.6-5.0) 02/02/18 18:15 BUN 5 mg/dL (6-20) L 02/02/18 18:15 Creatinine 0.65 mg/dL (0.44-1.00) 02/02/18 18:15 Glucose 92 mg/dL (65-120) 02/02/18 18:15 Phosphorus 2.9 mg/dL (2.5-4.3) 02/02/18 04:45 Magnesium 1.8 mg/dL (1.8-2.5) 02/02/18 04:45 Total Bilirubin 1.0 mg/dL (0.3-1.2) 01/31/18 05:04 AST 30 IU/L (10-42) 01/31/18 05:04 ALT 30 IU/L (10-60) 01/31/18 05:04 Alkaline Phosphatase 99 IU/L (42-121) 01/31/18 05:04 B-Natriuretic Peptide 87 pg/ml (<=100) 01/31/18 01:45 Lipase 12 U/L (22-51) L 01/30/18 16:50 Home Medications: Insulin Aspart [Novolog] See Protocol SQ ACHS 01/31/18 Ciprofloxacin HCl [Cipro 500 MG Tablet] 500 mg PO BID #10 tab 02/02/18 Ondansetron [Zofran Odt] 4 mg PO Q6HR PRN #20 tab.rapdis 02/02/18 New Medications: Ciprofloxacin HCl [Cipro 500 MG Tablet] 500 mg PO BID #10 tab Ondansetron [Zofran Odt] 4 mg PO Q6HR PRN #20 tab.rapdis PRN Reason: Nausea / Vomiting Patient Discharge Instructions: F/U with PCP in 2-3 days Diet: ADA Activity: Ad carlos Time spent managing pt's care (in minutes): 40
[2018-02-02 20:19] VITALS: BP 120/86
[2018-02-02] MEDS ORDERED: PANTOPRAZOLE 40 MG INJ IVP SCH (21:00)
== END 2018-02-02 20:15 | disposition home or self-care (01) | DRG 638 ==
LOC: ER 16:09 → ERHOLD 20:52 → 3RD-ICU 01-31 12:57
PROVIDERS: ADMIT Hospitalist; ATTEND Hospitalist
DX: E10.10 Type 1 diabetes mellitus with ketoacidosis without coma (principal); N39.0 Urinary tract infection, site not specified; E86.0 Dehydration; K21.9 Gastro-esophageal reflux disease without esophagitis; D64.9 Anemia, unspecified; E87.6 Hypokalemia; E83.42 Hypomagnesemia; K52.9 Noninfective gastroenteritis and colitis, unspecified
CPT/HCPCS: 36415; 71045; 74176; 80048; 80076; 80307; 81003; 81015; 81025; 82009; 82607; 82746; 82805; 82962; 83036; 83605; 83690; 83735; 83880; 84100; 84145; 84439; 84443; 85025; 87040; 87086; 87088; 99285; C9113; J0696; J1650; J2405; J2550; J2765; J3475; J7030

== ENCOUNTER 2019-01-17 11:37 | Inpatient (IN) | payer BC, SELFPAY ==
--- OUTSIDE RECORDS SUMMARY | 2019-01-17 11:39 | XMS REPORT | Summary of Care ---
:1990 Author Organization [facility] Address [address] [facility], [place] [address]- Encounter HQ Albinor_lewis(FIN) [id number] Date(s): 11/13/17 - 11/13/[address], [address] [address]- [phone] Discharge Disposition: Home or Self Care Attending Physician: Johanna Gutierrez MD Vital Signs Most recent to oldest [Reference Range]: 1 Height 152.4 cm (11/13/17 11:16 AM) Temperature Oral [96.4-99.1 DegF] 97.7 DegF (11/13/17 11:16 AM) Blood Pressure [90-140/60-90 mmHg] 139/91 mmHg (11/13/17 11:16 AM) Peripheral Pulse Rate [60-100 bpm] 91 bpm (11/13/17 11:16 AM) Weight 56.136 kg (11/13/17 11:16 AM) Body Mass Index 24.17 m2 (11/13/17 11:16 AM) Problem List No data available for this section Allergies, Adverse Reactions, Alerts Substance Reaction Severity Status NKDA Active Medications NovoLOG 100 units/mL See Instructions, used in insluin pump with boluses and basal rate, average units used per day 120 units, # 300 mL, 3 Refill(s), Pharmacy: [id number] Start Date: 11/13/17 Status: Ordered Results No data available for this section Immunizations No data available for this section Procedures No data available for this section Social History Social History Type Response Smoking Status Current every day smoker; Type: Cigarettes; Ready to change: No ; Concerns about tobacco use in household: No; Exposure to Tobacco Smoke None; Cigarette Smoking Last 365 Days Yes; Reg Smoking Cessation Counseling No1 entered on: 11/13/17 15-10 cigarettes per day Assessment and Plan No data available for this section
--- OUTSIDE RECORDS SUMMARY | 2019-01-17 11:39 | XMS REPORT | CCD ---
:1990 Author Organization [facility] Care Team Providers Name Role Phone Johanna Gutierrez Referring Provider Allergies, Adverse Reactions, Alerts Substance Reaction Status NKDA Active
--- OUTSIDE RECORDS SUMMARY | 2019-01-17 11:39 | XMS REPORT | Clinical Summary ---
:1990 Author Organization [facility] Address [address] [place] [address] Care Team Providers Name Role Phone Johanna Gutierrez Primary Care Provider Allergies No Known Allergies Medications Medication Sig Dispensed Refills Start Date End Date Status insulin aspart Inject subcutaneously 0 Active (NOVOLOG) 100 3 (three) times daily unit/mL InPn with meals. ibuprofen Take 600 mg by mouth 0 Active (ADVIL,MOTRIN) 600 every 6 (six) hours as MG tablet needed for Pain. Active Problems Not on file Social History Tobacco Use Types Packs/Day Years Used Date Current Every Day Smoker Cigarettes 0.25 Tobacco Cessation: Ready to Quit: No Alcohol Use Drinks/Week oz/Week Comments Yes occasional Sex Assigned at Date Recorded Not on file Job Start Date Occupation Industry Not on file Not on file Not on file Travel History Travel Start Travel End No recent travel history available. Last Filed Vital Signs Not on file Plan of Treatment Not on file Results Not on fileafter 01/16/2018
--- OUTSIDE RECORDS SUMMARY | 2019-01-17 11:39 | XMS REPORT | Summary of Care ---
:1990 Author Organization [facility] Address [address] [place] [address], [place] [address]- Encounter HQ Encntr_alias(FIN) [id number] Date(s): 12/03/17 - 12/03/[address], [address] [address]- [phone] Attending Physician: Johanna Gutierrez MD Vital Signs No data available for this section Problem List No data available for this section Allergies, Adverse Reactions, Alerts Substance Reaction Severity Status NKDA Active Medications No data available for this section Results No data available for this section [...]
--- OUTSIDE RECORDS SUMMARY | 2019-01-17 11:39 | XMS REPORT | Continuity of Care Document ---
:1990 Author Organization Interface Problems Problem Status Onset Classification Date Comments Source Date Reported 680.8 STAPH Active [facility] INFECTION 4 Medications Medication Details Route Status Patient Ordering Order Source Instructions Provider Date Insulin, See Active 11/14/19 [facility] Aspart, Human Instructio 18 Group 100 UNT/ML ns, used Injectable in insluin Solution pump with [NovoLog] boluses and basal rate, average units used per day 120 units, # 300 mL, 3 Refill(s), Pharmacy: [facility] #[id number] Allergies, Adverse Reactions, Alerts Substance Category Reaction Severity Reaction Status Date Comments Source type Reported Immunizations Immunization Date Given Site Status Last Updated Comments Source Results Order Results Value Reference Date Interpretation Comments Source Name Range Brain wo Brain wo CT HEAD WITHOUT CONTRAST. 10/22 - contrast contrast /2013 - [facility] CT INDICATION: Scalp staph infection. Read by: Mckay Alexandra Dictated Date/time: 10/23/13 08:33 Electronically Signed by: Mckay Alexandra MD 10/23/13 08:39 FINAL REPORT Soft tissue thickening overlies the right posterior parietal region. This is presumably the site of the infectious process. An oval low attenuation lesion measuring approximately 0.5 x 2.6 cm may represent a small abscess collection. Bone detail images demonstrate no calvarial abnormality. The ventricles, subarachnoid cisterns and cortical sulci are not remarkable. No mass, hemorrhage, ischemic change or other intracranial abnormality is identified. The visualized sinuses and mastoid air cells are clear. IMPRESSION: 1. Probable inflammatory process involving the scalp overlying the right posterior parietal region as described. 2. Otherwise, unremarkable examination. SL: 12 Vital Signs Vital Sign Value Date Comments Source Weight 56.136 11/13/2017 [facility] BMI Calculated 24.17 11/13/2017 Medical [facility] Temperature Oral (F) 97.7 F 11/13/2017 Medical [facility] Heart Rate 91 11/13/2017 [facility] Height 152.4 cm 11/13/2017 [facility] Systolic (mm Hg) 139 11/13/2017 [facility] Diastolic (mm Hg) 91 11/13/2017 [facility] Encounters Location Location Encounter Encounter Reason Attending ADM DC Status Source Details Type Number For Provider Date Date Visit Outpatient [id number] 680.8 CARLOS ALBERTO 10/22 Active [facility] INFECTIO t N Outpatient [id number] CARLOS ALBERTO 06/27 Active [facility] Outpatient [id number] CARLOS ALBERTO 11/13 Active [facility] Outpatient [id number] Carlos Alberto 11/13 11/14 Primary Medical Care [facility] Outpatient [id number] CARLOS ALBERTO 12/03 [facility] Ambulatory [id number] Carlos Alberto 12/03 12/03 Primary Pre-Reg [facility] Care [facility] Procedures Procedure Code Date Perfomer Comments Source
--- OUTSIDE RECORDS SUMMARY | 2019-01-17 11:40 | XMS REPORT ---
:1990 Author Organization [facility] Address [address] [place] [address] Care Team Providers Name Role Phone RIKY [...] Reference Range Comments KETONES, BLOOD (BEAKER) (test loev=2797) 0.4 mmol/L <0.4 BASIC METABOLIC [id number] 21:43:00 Test Item Value Reference Range Comments SODIUM (BEAKER) (test 141 meq/L 136-145 bbxc=156) POTASSIUM (BEAKER) (test 2.9 meq/L 3.5-5.1 tbli=118) CHLORIDE (BEAKER) (test 115 meq/L 98-107 qyfh=069) CO2 (BEAKER) (test 15 meq/L 22-29 diuk=042) BLOOD UREA NITROGEN 10 mg/dL 7-21 (BEAKER) (test zelf=982) CREATININE (BEAKER) (test 0.70 mg/dL 0.57-1.25 pvsw=927) GLUCOSE RANDOM (BEAKER) 200 mg/dL 70-105 (test jefr=427) CALCIUM (BEAKER) (test 7.1 mg/dL 8.4-10.2 qhvh=987) EGFR (BEAKER) (test 103 mL/min/1.73 sq m ESTIMATED GFR IS NOT aetu=7218) ACCURATE CREATININE CLEARANCE IN PREDICTING GLOMERULAR FILTRATION RATE. ESTIMATED GFR IS NOT APPLICABLE FOR DIALYSIS PATIENTS. URINALYSIS W/ [id number] 20:41:00 Test Item Value Reference Range Comments COLOR (BEAKER) (test jwqr=134) Light Yellow CLARITY (BEAKER) (test qpkt=615) Clear SPECIFIC GRAVITY UA (BEAKER) (test 1.015 1.001-1.035 ednv=237) PH UA (BEAKER) (test mczs=926) 5.0 5.0-8.0 PROTEIN UA (BEAKER) (test dyrp=323) Negative Negative GLUCOSE UA (BEAKER) (test cpjs=610) >1000 mg/dL Negative KETONES UA (BEAKER) (test ygid=433) Negative Negative BILIRUBIN UA (BEAKER) (test iftl=074) Negative Negative BLOOD UA (BEAKER) (test meph=693) Negative Negative NITRITE UA (BEAKER) (test tmam=068) Negative Negative LEUKOCYTE ESTERASE UA (BEAKER) (test Negative Negative bcvr=550) UROBILINOGEN UA (BEAKER) (test lfda=701) 0.2 mg/dL 0.2-1.0 RBC UA (BEAKER) (test bnor=420) 0 /HPF WBC UA (BEAKER) (test rmov=003) < /HPF BACTERIA (BEAKER) (test mszw=852) Rare SQUAMOUS EPITHELIAL (BEAKER) (test 1 /HPF tgjg=571) SOURCE(BEAKER) (test xabs=9609) Urine, Clean Catch SCREEN, [id number] 20:32:00 Test Item Value Reference Range Comments TEST URINE (BEAKER) (test yqjw=839) Negative POCT-GLUCOSE [id number] 20:10:00 Test Item Value Reference Range Comments POC-GLUCOSE METER (BEAKER) 348 mg/dL 70-110 TESTED AT [facility] [address] [facility] (test hfxn=4943) [facility] [address] BASIC METABOLIC [id number] 19:39:00 Test Item Value Reference Range Comments SODIUM (BEAKER) (test 132 meq/L 136-145 zvka=087) POTASSIUM (BEAKER) (test 3.9 meq/L 3.5-5.1 mfvw=515) CHLORIDE (BEAKER) (test 100 meq/L 98-107 hwbt=525) CO2 (BEAKER) (test 17 meq/L 22-29 bhmv=892) BLOOD UREA NITROGEN 13 mg/dL 7-21 (BEAKER) (test prtv=081) CREATININE (BEAKER) (test 1.00 mg/dL 0.57-1.25 zefa=877) GLUCOSE RANDOM (BEAKER) 524 mg/dL 70-105 (test nagz=511) CALCIUM (BEAKER) (test 8.8 mg/dL 8.4-10.2 jbva=116) EGFR (BEAKER) (test mL/min/1.73 sq m INSUFFICIENT CLINICAL DATA ujvs=2588) TO CALCULATE ESTIMATED GFR. CBC W/PLT COUNT & AUTO [id number] 19:08:00 Test Item Value Reference Range Comments WHITE BLOOD CELL COUNT (BEAKER) (test hidk=477) 10.0 K/ L 4.0-10.0 RED BLOOD CELL COUNT (BEAKER) (test sbkf=862) 4.59 M/ L 4.00-5.00 HEMOGLOBIN (BEAKER) (test glhq=593) 15.0 GM/DL 12.0-15.0 HEMATOCRIT (BEAKER) (test base=933) 43.3 % 36.0-45.0 MEAN CORPUSCULAR VOLUME (BEAKER) (test qtty=092) 94.3 fL 82.0-99.0 MEAN CORPUSCULAR HEMOGLOBIN (BEAKER) (test 32.6 pg 27.0-33.0 ohaz=557) MEAN CORPUSCULAR HEMOGLOBIN CONC (BEAKER) (test 34.5 GM/DL 32.0-36.0 gble=281) RED CELL DISTRIBUTION WIDTH (BEAKER) (test 12.8 % 10.3-14.2 rfql=903) PLATELET COUNT (BEAKER) (test gyjg=614) 238 K/CU MM 150-430 MEAN PLATELET VOLUME (BEAKER) (test pcss=478) 7.3 fL 6.5-10.5 NUCLEATED RED BLOOD CELLS (BEAKER) (test 0 /100 WBC 0-0 lbtz=906) NEUTROPHILS RELATIVE PERCENT (BEAKER) (test 63 % sbvr=342) LYMPHOCYTES RELATIVE PERCENT (BEAKER) (test 33 % cmmv=771) MONOCYTES RELATIVE PERCENT (BEAKER) (test 3 % stib=961) EOSINOPHILS RELATIVE PERCENT (BEAKER) (test 0 % tzwt=024) BASOPHILS RELATIVE PERCENT (BEAKER) (test 1 % plae=604) NEUTROPHILS ABSOLUTE COUNT (BEAKER) (test 6.30 K/ L 1.80-8.00 xnut=286) LYMPHOCYTES ABSOLUTE COUNT (BEAKER) (test 3.24 K/ L 1.48-4.50 awgm=869) MONOCYTES ABSOLUTE COUNT (BEAKER) (test 0.27 K/ L 0.00-1.30 fuxi=822) EOSINOPHILS ABSOLUTE COUNT (BEAKER) (test 0.05 K/ L 0.00-0.50 khxh=334) BASOPHILS ABSOLUTE COUNT (BEAKER) (test 0.09 K/ L 0.00-0.20 pslt=895) 0.00POCT-GLUCOSE [id number] 18:37:00 Test Item Value Reference Range Comments POC-GLUCOSE METER (BEAKER) 458 mg/dL 70-110 TESTED AT [facility] [address] [facility] (test eyxa=3128) [facility] [address]
[2019-01-17 12:16] LABS: Arterial Blood Carboxyhemoglob 1.6 % (0-1.5); Blood O2 Saturation 97.4 % (92-98.5)
[2019-01-17] MEDS ORDERED: INSULIN -REGULAR HUMAN 50 UNIT/0.5 ML ML ONE (12:21)
[2019-01-17] MEDS ORDERED: NA CHLORIDE 0.9% 1,000 ML ONE ×2 (12:21→13:59)
[2019-01-17 12:23] LABS: Absolute Lymphocytes (CBC) 2.5 K/uL (0.7-4.9); Absolute Monocytes 0.5 K/uL (0.1-1.3); Absolute Neutrophil 18.3 K/uL (1.8-8.0); Basophils % 0.3 % (0-1.3); Eosinophils % 0.1 % (0-4.4); Hematocrit 46.4 % (36.0-45.0); Lymphocytes % 11.5 % (15.3-44.8); MPV 8.5 fL (7.6-11.3); Monocytes % 2.5 % (3.3-12.3); RBC Red Blood Cell Count 4.65 M/uL (3.86-4.86)
[2019-01-17 12:47] LABS: Albumin 4.3 g/dL (3.4-5.0); Bilirubin Direct 0.2 mg/dL (0-0.2); Bilirubin Total 0.9 mg/dL (0.2-1.0); Potassium 4.7 mmol/L (3.5-5.1); Protein, Total 8.5 g/dL (6.4-8.2)
[2019-01-17 12:58] LABS: Blood Morphology Comment NOT SEEN (NOT SEEN); Platelet Estimate ADEQ
[2019-01-17] MEDS ORDERED: CEFTRIAXONE/SWI 1gm 1 GM/10 ML SYR ONE (14:00)
[2019-01-17] MEDS ORDERED: INSULIN -REGULAR HUMAN 100 UNIT in NA CHLORIDE 0.9% 100 ML IV SCH (15:00)
--- NOTE | 2019-01-17 15:00 | ER ---
Nurse's Notes [facility] Name: Roseann Rosen Age: 28 yrs Sex: Female : 1990 Arrival Date: 01/17/2019 Time: 11:38 Bed 2 Private MD: Diagnosis: Type 1 diabetes mellitus with ketoacidosis Presentation: 01/17 11:52 Presenting complaint: Patient states: N/V since last night. Patient reports being aj brittle diabetic and believes she is in DKA. Transition of care: patient was not received from another setting of care. Onset of symptoms was January 17, 2019. Risk Assessment: Do you want to hurt yourself or someone else? Patient reports no desire to harm self or others. Initial Sepsis Screen: Does the patient meet any 2 criteria? No. Patient's initial sepsis screen is negative. Does the patient have a suspected source of infection? No. Patient's initial sepsis screen is negative. Care prior to arrival: None. 11:52 Method Of Arrival: Ambulatory 11:52 Acuity: DRE 2 aj Triage Assessment: 11:53 General: Appears in no apparent distress. uncomfortable, Behavior is calm, cooperative. aj General: Smells of ketones. Pain: Denies pain. Neuro: Level of Consciousness is awake, alert, obeys commands, Oriented to person, place, time, situation, Appropriate for age. Respiratory: Airway is patent Respiratory effort is even, unlabored, Respiratory pattern is regular, symmetrical. GI: Reports nausea, vomiting. Derm: Skin is intact, is healthy with good turgor, Skin is pink, warm \T\ dry. normal. 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 - Social history:: Smoking status: Patient/guardian denies using tobacco. - Ebola Screening: : Patient negative for fever greater than or equal to 101.5 degrees Fahrenheit, and additional compatible Ebola Virus Disease symptoms Patient denies exposure to infectious person Patient denies travel to an Ebola-affected area in the 21 days before illness onset No symptoms or risks identified at this time. Screenin:00 Abuse screen: Denies threats or abuse. Denies injuries from another. Nutritional bp screening: No deficits noted. Tuberculosis screening: No symptoms or risk factors identified. Fall Risk None identified. Assessment: 12:00 General: SEE TRIAGE NOTE. bp 13:00 Reassessment: IVF INFUSING, BGL IMPROVED. bp 14:00 Reassessment: NO FURTHER NAUSEA, SR ON MONITOR. bp 14:54 Reassessment: INSULIN GTT PENDING FROM PHARMACY, SR NOTED ON MONITOR. bp 15:11 Reassessment: INSULIN GTT STARTED, PT NOW ON FSBG Q 1 HR. bp 16:15 Reassessment: PT TO BE ADMIT ICU, ORDERS PENDING. bp 17:48 Reassessment: PT MOVED TO ER HOLD, SEE [facility] FOR FURTHER DOCUMENTATION. bp Vital Signs: 11:53 BP 148 / 75; Pulse 111; Resp 23; Temp 98.1; Pulse Ox 100% on R/A; Weight 55.79 kg; aj Height 5 ft. 0 in. (152.40 cm); 13:00 BP 144 / 90; Pulse 111; Resp 24; Pulse Ox 100% ; bp 14:00 BP 138 / 89; Pulse 99; Resp 20; Pulse Ox 100% ; bp 14:52 BP 132 / 80; Pulse 97; Resp 18; Pulse Ox 99% ; bp 16:15 BP 126 / 79; Pulse 95; Resp 16; Pulse Ox 100% ; bp 17:48 BP 134 / 82; Pulse 96; Resp 14; Pulse Ox 100% ; bp 11:53 Body Mass Index 24.02 (55.79 kg, 152.40 cm) aj ED Course: 11:38 Patient arrived in ED. rg4 11:50 [facility] nh 11:50 Arash Santiago MD is Attending Physician. nh 11:50 Lui Benítez, CARLOS is Primary Nurse. bp 11:53 Triage completed. aj 11:53 Arm band placed on left wrist. Patient placed in an exam room. aj 12:00 Patient has correct armband on for positive identification. Bed in low position. Call bp light in reach. Side rails up X2. Adult w/ patient. 12:05 Inserted saline lock: 20 gauge in right antecubital area, using aseptic technique. bp Blood collected. 12:49 Notified ED physician of a critical lab result(s). C02- 7, GLU 623. la1 14:59 Arash Santiago MD is Hospitalizing Provider. nh 14:59 Brenda Neumann MD is Hospitalizing Provider. nh 17:50 No provider procedures requiring assistance completed. Patient admitted, IV remains in bp place. Administered Medications: 12:12 Drug: Insulin Regular Human 10 units {Co-Signature: ada (Omi Mccullough RN).} Route: bp Sub-Q; Site: right upper arm; 13:25 Follow up: Response: Blood sugar is lowered bp 12:13 Drug: Insulin Regular Human 10 units {Co-Signature: ada (Omi Mccullough RN).} Route: IVP; bp Site: right antecubital; 13:25 Follow up: Response: Blood sugar is lowered bp 12:18 Drug: NS 0.9% 1000 ml Route: IV; Rate: 1 bolus; Site: right antecubital; bp 13:45 Drug: NS 0.9% 1000 ml Route: IV; Rate: 1 bolus; Site: right antecubital; bp 14:00 Drug: Rocephin - (cefTRIAXone) 1 grams Route: IVPB; Infused Over: 30 mins; Site: right bp antecubital; 15:41 Follow up: IV Status: Completed infusion; IV Intake: 20ml bp 15:09 Drug: Insulin Drip - (Insulin Regular Human 100 units, NS 0.9% 100 ml) {Co-Signature: bp caballero (Omi Mccullough RN).} Route: IV; Rate: calculated rate; Site: right antecubital; 15:45 Drug: Zofran 4 mg Route: IVP; Site: right antecubital; bp Point of Care Testing: Blood Glucose: 11:59 Blood Glucose: High (>450 mg/dL); bp 13:24 Blood Glucose: 419 mg/dL; bp 15:01 Blood Glucose: 317 mg/dL; bp 16:27 Blood Glucose: 233 mg/dL; bp 17:48 Blood Glucose: 157 mg/dL; bp Ranges: Intake: 15:41 IV: 20ml; Total: 20ml. bp Outcome: 14:59 Decision to Hospitalize by Provider. tn 17:49 Admitted to ER Hold. Please see [facility] for further documentation. bp 17:49 Condition: stable 17:49 Instructed on the need for admit. 22:08 Patient left the ED. aa1 Signatures: Janis Kauffman RN RN aa1 Saundra Phelps RN RN aj Margarita Welch, SOLAR SALES MANAGER SOLAR SALES MANAGER tn Enoch Sheriff RN RN laBrittany Bauer rg4 Lui Benítez RN RN Omi Mccullough RN Corrections: (The following items were deleted from the chart) 17:49 15:11 Reassessment: INSULIN GTT STARTED, PT NOW ON FSBG Q30 MIN bp bp
--- NOTE | 2019-01-17 15:00 | EDPHYS ---
Physician Documentation [facility] Name: Roseann Rosen Age: 28 yrs Sex: Female : 1990 Arrival Date: 01/17/2019 Time: 11:38 Bed 2 Private MD: [place] Physician Arash Santiago HPI: 01/17 14:56 This 28 yrs old Female presents to ER via Ambulatory with complaints of nh Nausea, Weakness, Vomiting. 14:56 The patient presents to the emergency department with nausea, vomiting, abdominal pain. nh Onset: The symptoms/episode began/occurred yesterday. Possible causes: unknown. The symptoms are aggravated by nothing. The symptoms are alleviated by nothing. Associated signs and symptoms: Pertinent positives:. Severity of symptoms: At their worst the symptoms were moderate just prior to arrival, in the emergency department the symptoms are unchanged. The patient has experienced a previous episode, and the symptoms today are exactly the same. The patient has not recently seen a physician. Patient is type 1 diabetic and has recently changed insulin. 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 - Social history:: Smoking status: Patient/guardian denies using tobacco. - Ebola Screening: : Patient negative for fever greater than or equal to 101.5 degrees Fahrenheit, and additional compatible Ebola Virus Disease symptoms Patient denies exposure to infectious person Patient denies travel to an Ebola-affected area in the 21 days before illness onset No symptoms or risks identified at this time. ROS: 14:56 Constitutional: Negative for fever, chills, and weight loss, Eyes: Negative for injury, nh pain, redness, and discharge, ENT: Negative for injury, pain, and discharge, Neck: Negative for injury, pain, and swelling, Cardiovascular: Negative for chest pain, palpitations, and edema, Respiratory: Negative for shortness of breath, cough, wheezing, and pleuritic chest pain, Back: Negative for injury and pain, : Negative for injury, bleeding, discharge, and swelling, MS/Extremity: Negative for injury and deformity, Skin: Negative for injury, rash, and discoloration, Neuro: Negative for headache, weakness, numbness, tingling, and seizure, Psych: Negative for depression, anxiety, suicide ideation, homicidal ideation, and hallucinations, Allergy/Immunology: Negative for hives, rash, and allergies, Hematologic/Lymphatic: Negative for swollen nodes, abnormal bleeding, and unusual bruising. 14:56 Abdomen/GI: Positive for abdominal pain, nausea and vomiting. 14:56 Endocrine: Positive for polydipsia, polyphagia, polyuria. Exam: 14:56 Constitutional: This is a well developed, well nourished patient who is awake, alert, nh and in no acute distress. Head/Face: Normocephalic, atraumatic. Eyes: Pupils equal round and reactive to light, extra-ocular motions intact. Lids and lashes normal. Conjunctiva and sclera are non-icteric and not injected. Cornea within normal limits. Periorbital areas with no swelling, redness, or edema. ENT: Nares patent. No nasal discharge, no septal abnormalities noted. Tympanic membranes are normal and external auditory canals are clear. Oropharynx with no redness, swelling, or masses, exudates, or evidence of obstruction, uvula midline. Mucous membranes moist. Neck: Trachea midline, no thyromegaly or masses palpated, and no cervical lymphadenopathy. Supple, full range of motion without nuchal rigidity, or vertebral point tenderness. No Meningismus. Chest/axilla: Normal chest wall appearance and motion. Nontender with no deformity. No lesions are appreciated. Cardiovascular: Regular rate and rhythm with a normal S1 and S2. No gallops, murmurs, or rubs. Normal PMI, no JVD. No pulse deficits. Respiratory: Lungs have equal breath sounds bilaterally, clear to auscultation and percussion. No rales, rhonchi or wheezes noted. No increased work of breathing, no retractions or nasal flaring. Abdomen/GI: Soft, non-tender, with normal bowel sounds. No distension or tympany. No guarding or rebound. No evidence of tenderness throughout. Back: No spinal tenderness. No costovertebral tenderness. Full range of motion. Skin: Warm, dry with normal turgor. Normal color with no rashes, no lesions, and no evidence of cellulitis. MS/ Extremity: Pulses equal, no cyanosis. Neurovascular intact. Full, normal range of motion. Neuro: Awake and alert, GCS 15, oriented to person, place, time, and situation. Cranial nerves II-XII grossly intact. Motor strength 5/5 in all extremities. Sensory grossly intact. Cerebellar exam normal. Normal gait. Psych: Awake, alert, with orientation to person, place and time. Behavior, mood, and affect are within normal limits. Vital Signs: 11:53 BP 148 / 75; Pulse 111; Resp 23; Temp 98.1; Pulse Ox 100% on R/A; Weight 55.79 kg; aj Height 5 ft. 0 in. (152.40 cm); 13:00 BP 144 / 90; Pulse 111; Resp 24; Pulse Ox 100% ; bp 14:00 BP 138 / 89; Pulse 99; Resp 20; Pulse Ox 100% ; bp 14:52 BP 132 / 80; Pulse 97; Resp 18; Pulse Ox 99% ; bp 16:15 BP 126 / 79; Pulse 95; Resp 16; Pulse Ox 100% ; bp 17:48 BP 134 / 82; Pulse 96; Resp 14; Pulse Ox 100% ; bp 11:53 Body Mass Index 24.02 (55.79 kg, 152.40 cm) aj MDM: 11:50 Patient medically screened. ny 11:50 Patient medically screened. [facility] 14:56 Data reviewed: vital signs, nurses notes, lab test result(s), I have discussed the ny patient's presentation/case with the attending Emergency Department Physician; and as a result, I will admit patient. Counseling: I had a detailed discussion with the patient and/or guardian regarding: the historical points, exam findings, and any diagnostic results supporting the discharge/admit diagnosis, lab results, radiology results, the need for further work-up and treatment in the hospital. Physician consultation: Brenda Neumann MD was called at 14:58. 01/17 11:56 Order name: Basic Metabolic Panel ny 01/17 11:56 Order name: CBC with Diff; Complete Time: 13:19 ny 01/17 11:56 Order name: Creatinine for Radiology; Complete Time: 13:19 ny 01/17 11:56 Order name: Hepatic Function; Complete Time: 13:19 ny 01/17 11:56 Order name: Lipase; Complete Time: 13:19 ny 01/17 11:56 Order name: ABG; Complete Time: 13:19 ny 01/17 11:56 Order name: Basic Metabolic Panel; Complete Time: 13:19 [facility] 01/17 12:58 Order name: Manual Differential; Complete Time: 13:19 [facility] 01/17 13:21 Order name: Blood Culture Adult (2) ny 01/17 15:30 Order name: Urine Dipstick--Ancillary (enter results) [facility] 01/17 15:30 Order name: Urine --Ancillary (enter results) [facility] 01/17 15:47 Order name: Urine --Ancillary [facility] 01/17 15:47 Order name: Urine Dipstick-Ancillary [facility] 01/17 20:51 Order name: Basic Metabolic Panel [facility] 01/17 11:55 Order name: FSBS; Complete Time: 11:59 01/17 11:56 Order name: IV Saline Lock; Complete Time: 12:19 ny 01/17 11:56 Order name: Labs collected and sent; Complete Time: 12:19 ny 01/17 14:38 Order name: Urine Dipstick-Ancillary (obtain specimen); Complete Time: 15:28 ny 01/17 20:56 Order name: Acetone Level [facility] 01/17 20:59 Order name: CBC with Automated Diff EDMS Administered Medications: 12:12 Drug: Insulin Regular Human 10 units {Co-Signature: ada Mccullough RN).} Route: bp Sub-Q; Site: right upper arm; 13:25 Follow up: Response: Blood sugar is lowered bp 12:13 Drug: Insulin Regular Human 10 units {Co-Signature: ada (Omi Mccullough RN).} Route: IVP; bp Site: right antecubital; 13:25 Follow up: Response: Blood sugar is lowered bp 12:18 Drug: NS 0.9% 1000 ml Route: IV; Rate: 1 bolus; Site: right antecubital; bp 13:45 Drug: NS 0.9% 1000 ml Route: IV; Rate: 1 bolus; Site: right antecubital; bp 14:00 Drug: Rocephin - (cefTRIAXone) 1 grams Route: IVPB; Infused Over: 30 mins; Site: right bp antecubital; 15:41 Follow up: IV Status: Completed infusion; IV Intake: 20ml bp 15:09 Drug: Insulin Drip - (Insulin Regular Human 100 units, NS 0.9% 100 ml) {Co-Signature: bp caballero (Omi Mccullough RN).} Route: IV; Rate: calculated rate; Site: right antecubital; 15:45 Drug: Zofran 4 mg Route: IVP; Site: right antecubital; bp Point of Care Testing: Blood Glucose: 11:59 Blood Glucose: High (>450 mg/dL); bp 13:24 Blood Glucose: 419 mg/dL; bp 15:01 Blood Glucose: 317 mg/dL; bp 16:27 Blood Glucose: 233 mg/dL; bp 17:48 Blood Glucose: 157 mg/dL; bp Ranges: Critical Glucose Levels:Adult <50 mg/dl or >400 mg/dl <40 mg/dl or >180 mg/dl Disposition: 01/18 09:01 Co-signature as Attending Physician, Arash Santiago MD I agree with the assessment and roseline plan of care. Disposition: 01/17/19 14:59 Hospitalization ordered by Brenda Neumann for Inpatient Admission. Preliminary diagnosis is Type 1 diabetes mellitus with ketoacidosis. - Bed requested for Intensive Care Unit. - Status is Inpatient Admission. aa1 - Condition is Fair. - Problem is new. - Symptoms are unchanged. UTI on Admission? No Signatures: Dispatcher [employer] EDMS Janis Kauffman RN RN aa1 Saundra Phelps RN RN aj Anderson, Corey, MD MD [facility] Margarita Welch, MATHEMATICIAN RESEARCH MATHEMATICIAN RESEARCH ny Elvira Osborne RN RN Radha Millan RN RN Lui Benítez RN RN Omi caballero Corrections: (The following items were deleted from the chart) 01/17 17:09 14:59 Hospitalization Ordered by Brenda Neumann MD for Inpatient Admission. Preliminary diagnosis is Type 1 diabetes mellitus with ketoacidosis. Bed requested for Intensive Care Unit. Status is Inpatient Admission. Condition is Fair. Problem is new. Symptoms are unchanged. UTI on Admission? No. ny 21:41 17:09 01/17/2019 14:59 Hospitalization Ordered by Brenda Neumann MD for Inpatient Admission. Preliminary diagnosis is Type 1 diabetes mellitus with ketoacidosis. Bed requested for [facility] ER HOLD. Status is Inpatient Admission. Condition is Fair. Problem is new. Symptoms are unchanged. UTI on Admission? No. 22:08 21:41 01/17/2019 14:59 Hospitalization Ordered by Brenda Neumann MD for Inpatient aa1 Admission. Preliminary diagnosis is Type 1 diabetes mellitus with ketoacidosis. Bed requested for Intensive Care Unit. Status is Inpatient Admission. Condition is Fair. Problem is new. Symptoms are unchanged. UTI on Admission? No.
[2019-01-17 15:47] LABS: Urine Blood TRACE (NEG); Urine Glucose 2+ (NEG); Urine Protein 1+ (NEG)
[2019-01-17] MEDS ORDERED: ONDANSETRON 4 MG/2 ML VIAL ONE ×2 (15:57→19:01)
--- NOTE | 2019-01-17 16:47 | P.HP ---
Certification for Inpatient Patient admitted to: Inpatient With expected LOS: >2 Midnights Practitioner: I am a practitioner with admitting privileges, knowledge of patient current condition, hospital course, and medical plan of care. Services: Services provided to patient in accordance with Admission requirements found in Title 42 Section 412.3 of the Code of Federal Regulations Patient History Date of Service: 01/17/19 Reason for admission: DKA History of Present Illness: This is a 78-year-old female with history of type 1 diabetes admitted for abdominal pain, intractable nausea and vomiting. Patient states that since 8: 00 a.m. yesterday, she has been starting to feel sick, progressively worsening. She gives herself insulin, this did not help. She continued to have nausea and vomiting and abdominal pain. She then came to the ER and was found to be in DKA in the ER. At home, patient states that she uses only a sliding scale insulin. She has been off of her insulin pump since September of this year due to no insurance and financial reasons. She states that she has been compliant with her insulin and has been using as prescribed every day. She does not have a primary care physician at this time and states that she does not see an validation specialist at this time either. She was previously being seen at [facility]. In the ER, patient was hemodynamically stable. Her labs remarkable for WBC count of 21.4, sodium of 129, blood sugars in 600s. Her pH was 7.21 and her anion gap was 16. She received 1 time Rocephin, blood cultures were drawn due to her leukocytosis. Urine analysis was pending. At the time of my exam, she was already started on the insulin drip in the ER along with aggressive hydration. She was still in moderate distress due to abdominal pain, nausea and vomiting. Her vital signs were stable at the time of my exam. She was admitted to the ICU for further management of her DKA. Allergies No Known Allergies Allergy (Verified 01/31/18 05:55) Home Medications: Insulin Aspart [Novolog] See Protocol SQ ACHS 01/31/18 Ciprofloxacin HCl [Cipro 500 MG Tablet] 500 mg PO BID #10 tab 02/02/18 Ondansetron [Zofran Odt] 4 mg PO Q6HR PRN #20 tab.rapdis 02/02/18 - Past Medical/Surgical History Diabetic: Yes -: Diabetes Type 1 -: Bone Spurr -: L wrist bone spurr -: L shouder bone spurr -: [place] teeth - Social History Alcohol use: Yes CD- Drugs: Yes Caffeine use: Yes Review of Systems 10-point ROS is otherwise unremarkable Physical Examination - Physical Exam General: Alert, Oriented x3, Moderate distress HEENT: Atraumatic, PERRLA, Mucous membr. moist/pink, EOMI, Sclerae nonicteric Neck: Supple, 2+ carotid pulse no bruit, No LAD, Without JVD or thyroid abnormality Respiratory: Clear to auscultation bilaterally, Normal air movement Cardiovascular: Regular rate/rhythm, Normal S1 S2 Gastrointestinal: Normal bowel sounds, Tenderness Musculoskeletal: No tenderness Integumentary: No rashes Neurological: Normal gait, Normal speech, Normal strength at 5/5 x4 extr, Normal tone, Normal affect Lymphatics: No axilla or inguinal lymphadenopathy - Studies Laboratory Data (last 24 hrs) 01/17/19 12:05: Creatinine 1.11 01/17/19 12:05: WBC 21.4 H*, Hgb 14.8, Hct 46.4 H, Plt Count 395 01/17/19 12:05: Sodium 129 L, Potassium 4.7, BUN 16, Creatinine 1.17, Glucose 623 H*, Total Bilirubin 0.9, AST 66 H, ALT 55, Alkaline Phosphatase 219 H, Lipase 31 L Assessment and Plan - Problems (Diagnosis) (1) Diabetic ketoacidosis Current Visit: Yes Status: Acute Plan: Start on DKA protocol - IV insulin, aggressive IV hydration, electrolyte monitoring, BMP checks q. 4hr along with Accu-Cheks q.1 hr At this time, anion gap of 16. Will continue to monitor, once gap is closed and acetone negative, will switch over to subcutaneous insulin. Closely monitor patient Qualifiers: Diabetes mellitus type: type 1 Diabetes mellitus complication detail: without coma Qualified Code(s): E10.10 - Type 1 diabetes mellitus with ketoacidosis without coma (2) Abdominal pain Current Visit: Yes Status: Acute Plan: Likely secondary to DKA Qualifiers: Abdominal location: generalized Qualified Code(s): R10.84 - Generalized abdominal pain (3) Intractable nausea and vomiting Current Visit: No Status: Acute Plan: Likely secondary to DKA Zofran as needed for nausea. If no help, may consider adding Reglan Qualifiers: Vomiting type: unspecified Qualified Code(s): R11.2 - Nausea with vomiting , unspecified (4) Leukocytosis Current Visit: No Status: Acute Plan: Unsure of etiology, could be reactive versus dehydration versus an infection Urine cultures and blood cultures pending Will continue to monitor Qualifiers: Leukocytosis type: unspecified Qualified Code(s): D72.829 - Elevated white blood cell count, unspecified (5) Diabetes mellitus Current Visit: Yes Status: Chronic Plan: Patient will need social work involved meds for her diabetes resources including clinic. Patient was previously on an insulin pump, no longer on 09/29 insurance and financial reasons. Currently using sliding scale insulin, unsure how well with control patient had. Will get A1c Qualifiers: Diabetes mellitus type: type 1 Diabetes mellitus complication status: with ketoacidosis Diabetes mellitus complication detail: without coma Qualified Code(s): E10.10 - Type 1 diabetes mellitus with ketoacidosis without coma - Plan DVT prophylaxis: Lovenox GI prophylaxis: None Diet: NPO Disposition: The bed to the ICU, DKA protocol. Monitor closely - Advance Directives Does patient have a Living Will: No Does patient have a Durable POA for Healthcare: No Critical Care: Yes Time Spent Managing Pts Care (In Minutes): 55
[2019-01-17] MEDS ORDERED: NACHLORIDE 0.45% 1,000 ML with POTASSIUM CL 20 MEQ IV SCH ×2 (17:02)
[2019-01-17] MEDS: D5.45NS W/KCL 20MEQ 1,000 ML IV SCH (17:02)
[2019-01-17] MEDS ORDERED: D50W 25 GM/50 ML SYRINGE IV PRN (17:38)
[2019-01-17] MEDS ORDERED: GLUCAGON 1 MG/VIAL IM PRN (17:38)
[2019-01-17] MEDS: ENOXAPARIN 40 MG/0.4 ML SQ SCH (18:00)
[2019-01-17] MEDS ORDERED: D5.45NS W/KCL 20MEQ 1,000 ML IV ONE (18:07)
[2019-01-17] MEDS: ONDANSETRON 4 MG/2 ML VIAL IV PRN (18:50)
[2019-01-17] MEDS ORDERED: ENOXAPARIN 40 MG/0.4 ML SQ ONE (19:01)
[2019-01-17] MEDS: PROMETHAZINE 25 MG TABLET PO PRN (19:58)
[2019-01-17 20:39] LABS: BUN Blood Urea Nitrogen 12 mg/dL (7-18); Bicarbonate 16 mmol/L (21-32); Glucose Level 153 mg/dL (74-106); Potassium 4.3 mmol/L (3.5-5.1); Sodium Level 138 mmol/L (136-145)
[2019-01-17 20:57] LABS: Absolute Lymphocytes (CBC) 1.2 K/uL (0.7-4.9); Absolute Monocytes 0.6 K/uL (0.1-1.3); Absolute Neutrophil 16.5 K/uL (1.8-8.0); Basophils % 0.2 % (0-1.3); Eosinophils % 0.4 % (0-4.4); Lymphocytes % 6.6 % (15.3-44.8); MPV 7.8 fL (7.6-11.3); RBC Red Blood Cell Count 4.27 M/uL (3.86-4.86)
[2019-01-17] MEDS ORDERED: PROMETHAZINE 25 MG/ML VIAL IV ONE (22:41)
[2019-01-17] MEDS ORDERED: NA CHLORIDE 0.9% 100 ML ONE (22:54)
[2019-01-17] MEDS ORDERED: PROMETHAZINE 25 MG/ML VIAL ONE (22:54)
[2019-01-18] MEDS: D5.45NS W/KCL 20MEQ 1,000 ML IV SCH ×4 (01:00→21:24)
[2019-01-18 02:16] LABS: BUN Blood Urea Nitrogen 12 mg/dL (7-18); Bicarbonate 13 mmol/L (21-32); Glucose Level 290 mg/dL (74-106); Potassium 4.2 mmol/L (3.5-5.1); Sodium Level 135 mmol/L (136-145)
[2019-01-18] MEDS: ONDANSETRON 4 MG/2 ML VIAL IV PRN ×4 (03:00→22:08)
[2019-01-18 05:03] LABS: Urine Appearance CLEAR; Urine Bilirubin NEGATIVE (NEG); Urine Blood NEGATIVE (NEG); Urine Color YELLOW; Urine Glucose 3+ (NEG); Urine Protein TRACE (NEG); Urine Specific Gravity 1.025 (1.005-1.030); Urine Urobilinogen 0.2 mg/dL (0.2-1.0)
[2019-01-18 05:13] LABS: Urine Microscopic Reflex ORDER UMIC
[2019-01-18 05:14] LABS: Absolute Lymphocytes (CBC) 2.2 K/uL (0.7-4.9); Absolute Monocytes 0.7 K/uL (0.1-1.3); Absolute Neutrophil 15.7 K/uL (1.8-8.0); Basophils % 0.2 % (0-1.3); Hematocrit 40.2 % (36.0-45.0); Lymphocytes % 11.8 % (15.3-44.8); MPV 7.9 fL (7.6-11.3); RBC Red Blood Cell Count 4.25 M/uL (3.86-4.86)
[2019-01-18 05:24] LABS: Potassium 3.8 mmol/L (3.5-5.1)
[2019-01-18 05:32] LABS: Barbiturates NEGATIVE (NEGATIVE); Benzodiazepines NEGATIVE (NEGATIVE); Cocaine NEGATIVE (NEGATIVE); METHAMPHETAM NEGATIVE (NEGATIVE); Methadone NEGATIVE (NEGATIVE); Opiates NEGATIVE (NEGATIVE); Phencyclidine NEGATIVE (NEGATIVE); THC Cannibis POSITIVE (NEGATIVE)
[2019-01-18 05:35] LABS: Urine Bacteria <20 /HPF (<20); Urine Culture Reflex Order REFLEXED; Urine RBC <5 /HPF (NONE SEEN); Urine Trichomonas PRESENT (NONE SEEN)
[2019-01-18] MEDS ORDERED: POTASSIUM 25 MEQ EFFERV TAB PO ONE (06:40)
[2019-01-18] MEDS: PROMETHAZINE 25 MG TABLET PO PRN ×3 (07:34→22:58)
[2019-01-18] MEDS: INSULIN -REGULAR HUMAN 100 UNIT in NA CHLORIDE 0.9% 100 ML IV SCH (08:40)
[2019-01-18 09:31] LABS: BUN Blood Urea Nitrogen 8 mg/dL (7-18); Bicarbonate 19 mmol/L (21-32); Glucose Level 118 mg/dL (74-106); Potassium 3.9 mmol/L (3.5-5.1); Sodium Level 140 mmol/L (136-145)
[2019-01-18] MEDS: metroNIDAZOLE 500 MG TABLET PO SCH ×2 (12:04→21:24)
[2019-01-18 14:44] LABS: BUN Blood Urea Nitrogen 7 mg/dL (7-18); Bicarbonate 21 mmol/L (21-32); Glucose Level 97 mg/dL (74-106); Potassium 3.5 mmol/L (3.5-5.1); Sodium Level 140 mmol/L (136-145)
--- NOTE | 2019-01-18 17:05 | P.PN ---
Subjective Date of Service: 01/18/19 Chief Complaint: DKA Subjective: No new changes Patient seen and examined at bedside. No family at bedside. Chart reviewed and case discussed with nursing staff. Patient was still complaining of nausea, given Zofran. Overnight, patient continued on insulin IV. Gap did close, then reopened again. Restarted on insulin drip. Abdominal pain improved Review of Systems 10-point ROS is otherwise unremarkable Physical Examination - Vital Signs Temperature: 98.2 F Blood Pressure: 129/81 Pulse: 81 Respirations: 20 Pulse Ox (%): 98 - Physical Exam General: Alert, Oriented x3, Mild distress, Moderate distress HEENT: Atraumatic, PERRLA, EOMI Neck: Supple, JVD not distended Respiratory: Clear to auscultation bilaterally, Normal air movement Cardiovascular: Regular rate/rhythm, Normal S1 S2 Gastrointestinal: Normal bowel sounds, No tenderness Musculoskeletal: No tenderness Integumentary: No rashes Neurological: Normal speech, Normal tone, Normal affect Lymphatics: No axilla or inguinal lymphadenopathy Assessment And Plan - Current Problems (Diagnosis) (1) Diabetic ketoacidosis Current Visit: Yes Status: Acute Plan: Continue on DKA protocol - IV insulin, aggressive IV hydration, electrolyte monitoring, BMP checks q. 4hr along with Accu-Cheks q.1 hr At this time, anion gap closed, though still moderate amount of acetone. Will continue to monitor, once gap is closed and acetone negative, will switch over to subcutaneous insulin. Continue to keep NPO. Will start diet switched over to subcutaneous insulin. Closely monitor patient Qualifiers: Diabetes mellitus type: type 1 Diabetes mellitus complication detail: without coma Qualified Code(s): E10.10 - Type 1 diabetes mellitus with ketoacidosis without coma (2) Abdominal pain Current Visit: Yes Status: Acute Plan: Likely secondary to DKA- improving Qualifiers: Abdominal location: generalized Qualified Code(s): R10.84 - Generalized abdominal pain (3) Intractable nausea and vomiting Current Visit: No Status: Acute Plan: Likely secondary to DKA Zofran as needed for nausea. If no help, may consider adding Reglan Qualifiers: Vomiting type: unspecified Qualified Code(s): R11.2 - Nausea with vomiting , unspecified (4) Leukocytosis Current Visit: No Status: Acute Plan: Unsure of etiology, could be reactive versus dehydration versus an infection - unchanged Could be secondary to trichomonal infection. Blood cultures still pending blood cultures pending Will continue to monitor Qualifiers: Leukocytosis type: unspecified Qualified Code(s): D72.829 - Elevated white blood cell count, unspecified (5) Diabetes mellitus Current Visit: Yes Status: Chronic Plan: Patient will need social work involved meds for her diabetes resources including clinic. Patient was previously on an insulin pump, no longer on 09/29 insurance and financial reasons. Currently using sliding scale insulin, unsure how well with control patient had. Will get A1c Qualifiers: Diabetes mellitus type: type 1 Diabetes mellitus complication status: with ketoacidosis Diabetes mellitus complication detail: without coma Qualified Code(s): E10.10 - Type 1 diabetes mellitus with ketoacidosis without coma (6) Marijuana abuse Current Visit: No Status: Chronic (7) Trichomonas infection Current Visit: Yes Status: Acute Plan: Urine with evidence of trichomonads. Will start Flagyl 500 mg twice a day to complete a 7 day course. Educated patient on disease, recommended partner also get tested. - Plan DVT prophylaxis: Lovenox GI prophylaxis: None Diet: NPO Disposition: Continue to monitor in ICU, DKA protocol. Monitor closely
[2019-01-18] MEDS: ENOXAPARIN 40 MG/0.4 ML SQ SCH (17:06)
[2019-01-18] MEDS ORDERED: PROMETHAZINE 25 MG/ML VIAL IV ONE (19:30)
[2019-01-18] MEDS ORDERED: PROMETHAZINE 25 MG/ML VIAL ONE (19:36)
[2019-01-18] MEDS ORDERED: KCL 20 MEQ/100 mL IVPB 20 MEQ/100 ML BAG IV SCH (20:00)
[2019-01-19] MEDS: D5.45NS W/KCL 20MEQ 1,000 ML IV SCH ×4 (03:59→23:43)
[2019-01-19] MEDS: ONDANSETRON 4 MG/2 ML VIAL IV PRN ×4 (03:59→20:13)
[2019-01-19] MEDS: PROMETHAZINE 25 MG TABLET PO PRN ×3 (05:03→18:29)
[2019-01-19 05:13] LABS: Absolute Lymphocytes (CBC) 1.6 K/uL (0.7-4.9); Absolute Monocytes 0.5 K/uL (0.1-1.3); Absolute Neutrophil 8.7 K/uL (1.8-8.0); Basophils % 0.4 % (0-1.3); Eosinophils % 0.1 % (0-4.4); Hematocrit 39.3 % (36.0-45.0); Lymphocytes % 14.7 % (15.3-44.8); Monocytes % 4.8 % (3.3-12.3); RBC Red Blood Cell Count 4.17 M/uL (3.86-4.86)
[2019-01-19 05:36] LABS: ALT/SGPT 35 U/L (12-78); AST/SGOT 25 U/L (15-37); Albumin 3.2 g/dL (3.4-5.0); Alkaline Phosphatase 156 U/L (45-117); BUN Blood Urea Nitrogen 5 mg/dL (7-18); Bicarbonate 20 mmol/L (21-32); Bilirubin Total 0.6 mg/dL (0.2-1.0); Glucose Level 238 mg/dL (74-106); Magnesium 1.6 mg/dL (1.8-2.4); Phosphorus 1.3 mg/dL (2.5-4.9); Sodium Level 138 mmol/L (136-145)
[2019-01-19] MEDS ORDERED: MAGNESIUM SULFATE 1 gm IVPB 1 GM/100 ML BAG IV ONE (05:53)
[2019-01-19] MEDS ORDERED: POTASSIUM PHOS IN 0.9 % NACL 15 MMOL/250 ML BAG IV ONE (05:54)
[2019-01-19] MEDS: metroNIDAZOLE 500 MG TABLET PO SCH ×2 (08:40→20:13)
--- NOTE | 2019-01-19 15:34 | PN ---
Date of Progress Note: 01/19/2019 Subjective: The patient seen and examined. Chart reviewed and case discussed with RN. The patient is a 28-year-old female, still complaining of some nausea and vomiting, admitted with DKA. The patie nt had to be restarted on insulin drip. Family at the bedside. Treatment plan explained and all que stions answered. Medications: List reviewed. Physical Examination: Vital Signs: Temperature 97.7, heart rate 96, blood pressure 148/90, respirations 12, and O2 100% on room air. General: Awake, alert, and oriented x3, some mild distress, ill-appearing female. CV: S1 and S2. Regular rate and rhythm. Peripheral pulses present. Respiratory: Moving air well bilaterally. No wheezing or stridor. No use of accessory muscles. Gastrointestinal: Abdomen is soft, nontender, nondistended. Positive bowel sounds. No guarding or rigidity. Extremities: No clubbing, cyanosis, or edema. No calf tenderness. Neurologic: Cranial nerves 2 through 12 intact grossly. No focal neurological deficits. Speech is normal. Laboratory Data: Sodium 138, potassium 4, chloride 110, CO2 20, BUN 5, creatinine 0.77, glucose 238, calcium 8.8. Hemoglobin A1c is 8.9%, phosphorus 1.3, magnesium 1.6. WBC 10.8, H and H 13.5 and 39. 3, platelets 304, neutrophils 80%. Blood cultures, no growth to date. Urine culture, no growth. Assessment And Plan: 1.Diabetic ketoacidosis. The patient is still on 2 units of IV insulin, gap now down to 8. We will continue to monitor and if gap remains close by this afternoon, we will start on clear liquid diet. The patient has had to be restarted on insulin once already, switched over to subcu insulin dependin g on her tolerance of her diet. Currently nauseated. The patient was counseled. The patient has ty pe 1 diabetes without coma. 2.Acute abdominal pain, generalized, currently resolved. Still having some nausea, likely due to ab ove. 3.Intractable nausea and vomiting, improving. Continue antiemetics. 4.Leukocytosis likely secondary to acute phase reactant as well as trichomonas infection. Cultures are negative to date including blood cultures and urine cultures. The patient has been started on tr eatment for Trichomonas infection. White blood cell count is normalized. 5.Diabetes mellitus type 1, currently with ketoacidosis without coma. The patient will need diabeti c education. A1c is 8.9%. The patient does not have a primary care physician. She will need to be set up with 1 as an outpatient. 6.Marijuana abuse, counseled. 7.Trichomonas infection. Continue Flagyl 500 b.i.d., total of 7 days. The patient's partner needs to be tested and treated. Otherwise, she will be reinfected. 8.Deep vein thrombosis prophylaxis with Lovenox. Plan: Continue monitor in ICU. Continue IV insulin. Depending on her clinical status, may switch t o subcutaneous insulin in the afternoon if she tolerates clear liquid diet. /MODL Voice ID: [id number] Report ID: [id number]
[2019-01-19] MEDS: ENOXAPARIN 40 MG/0.4 ML SQ SCH (18:09)
[2019-01-19] MEDS: INSULIN -REGULAR HUMAN 100 UNIT in NA CHLORIDE 0.9% 100 ML IV SCH (21:09)
[2019-01-19] MEDS ORDERED: PROMETHAZINE 25 MG/ML VIAL IV ONE (22:43)
[2019-01-20] MEDS: PROMETHAZINE 25 MG TABLET PO PRN (01:12)
[2019-01-20] MEDS: ONDANSETRON 4 MG/2 ML VIAL IV PRN ×3 (05:40→20:05)
[2019-01-20 05:56] LABS: BUN Blood Urea Nitrogen 3 mg/dL (7-18); Bicarbonate 23 mmol/L (21-32); Glucose Level 251 mg/dL (74-106); Magnesium 1.6 mg/dL (1.8-2.4); Phosphorus 1.6 mg/dL (2.5-4.9); Potassium 3.9 mmol/L (3.5-5.1); Sodium Level 139 mmol/L (136-145)
[2019-01-20] MEDS: D5.45NS W/KCL 20MEQ 1,000 ML IV SCH ×3 (06:00→19:16)
[2019-01-20] MEDS ORDERED: MAGNESIUM SULFATE 1 gm IVPB 1 GM/100 ML BAG IV ONE (06:18)
[2019-01-20] MEDS ORDERED: POTASSIUM PHOS IN 0.9 % NACL 15 MMOL/250 ML BAG IV ONE (06:20)
[2019-01-20] MEDS ORDERED: METOCLOPRAMIDE 10 MG/2mL INJ IV PRN (08:19)
[2019-01-20] MEDS: metroNIDAZOLE 500 MG TABLET PO SCH ×2 (08:52→20:05)
[2019-01-20] MEDS: METOCLOPRAMIDE 10 MG/2mL INJ IV PRN ×2 (15:02→20:59)
--- NOTE | 2019-01-20 15:20 | RAD REPORT ---
EXAM DESCRIPTION: RAD - Abdomen W Erect - 01/20/2019 3:08 pm CLINICAL HISTORY: Vomiting FINDINGS: The bowel gas pattern is diminished. Free air is not seen beneath the diaphragm 4.6 centimeter calcified mass extends off of the right ilium. It is questionably enlarged when compar ed to a CT of January 2018. It is recommended that the patient have a nonemergent CT scan of the pelvis f or further evaluation Small left ilium osteochondroma appears unchanged
[2019-01-20] MEDS: ENOXAPARIN 40 MG/0.4 ML SQ SCH (17:58)
--- NOTE | 2019-01-20 18:23 | PN ---
Subjective: The patient seen and examined. Chart reviewed and case discussed with RN. The patient is still having significant amount of nausea and vomiting, unable to tolerate any p.o. intake last ni ght. Medications: List reviewed. Physical Examination: Vital Signs: Temperature 98.4, heart rate 82, blood pressure 127/90, respirations 9, O2 100% on room air. General: Awake, alert, oriented x3, ill-appearing female, in mild distress. CV: S1 and S2. Regular rate and rhythm. Peripheral pulses present. Respiratory: Moving air well bilaterally. No wheezing or stridor. Gastrointestinal: Abdomen is soft, nontender, nondistended. Positive bowel sounds. Extremities: No clubbing, cyanosis, or edema. Neurologic: Nonfocal. Laboratory Data: Sodium 139, potassium 3.9, chloride 108, CO2 23, BUN 3, creatinine 0.61, glucose 25 1, calcium 8.1, phosphorus 1.6, magnesium 1.6. WBC 10.8. Labs from yesterday; blood cultures no diann wth to date, urine culture growing out mixed grace. Assessment And Plan: A 28-year-old female with: 1.Diabetic ketoacidosis. The patient continues to be on IV insulin between 2 and 3 units/hour. The patient is still unable to tolerate p.o. intake. We will start on Reglan. The patient may have madhu betic gastroparesis and re-initiate clear liquid diet. If the patient is able to tolerate her diet, we will switch over to subcutaneous insulin. 2.Acute abdominal pain, generalized, resolved. 3.Intractable nausea and vomiting, improving due to secondary to gastroparesis. We will give trial of Reglan. 4.Leukocytosis likely secondary to acute phase reactant as well as Trichomonas resolved. 5.Diabetes mellitus type 1 with ketoacidosis without coma. Continue diabetic education and hemoglob in A1c is 8.9%. The patient does not have PCP, use to use an insulin pump. We will need to be switc hed over to Lantus along with premeal insulin. 6.Marijuana abuse counseled. 7.Trichomonas infection. We will continue Flagyl for a total of 7 days. Partner needs to be tested and treated. 8.Deep venous thrombosis prophylaxis with Lovenox. Plan: Start Reglan, switched over to subcutaneous insulin if the patient tolerates diet. Recheck BM P in a.m. and likely discharge in the next 24 hours depending on clinical response. SA/MODL Voice ID: [id number] Report ID: [id number]
[2019-01-21] MEDS: D5.45NS W/KCL 20MEQ 1,000 ML IV SCH ×3 (01:58→21:02)
[2019-01-21] MEDS: ONDANSETRON 4 MG/2 ML VIAL IV PRN ×2 (01:58→14:10)
[2019-01-21] MEDS: METOCLOPRAMIDE 10 MG/2mL INJ IV PRN ×3 (05:38→17:36)
[2019-01-21 06:13] LABS: Magnesium 1.7 mg/dL (1.8-2.4); Phosphorus 2.6 mg/dL (2.5-4.9)
--- NOTE | 2019-01-21 08:14 | RAD REPORT ---
EXAM DESCRIPTION: CT - Abdomen Pelvis W Contrast - 01/20/2019 10:12 pm CLINICAL HISTORY: Abdominal pain . COMPARISON: 2016 TECHNIQUE: Computed axial tomography of the abdomen pelvis was obtained. 100 cc Isovue-300 was admin istered intravenously. Oral contrast was not requested which limits evaluation of bowel. All CT scans are performed using dose optimization technique as appropriate and may include automated exposure control or mA/KV adjustment according to patient size. FINDINGS: The liver, spleen, pancreas, adrenal and kidneys appear unremarkable. There is no evidence of diverticulitis. An osteochondromata extends off of the lateral aspect of the right ilium. It measures 4.3 centimeters . Previously it measured 3.2 centimeters. The cartilage cap has also increased in size Osteochondroma extending off of the left ilium is unchanged IMPRESSION: Enlargement of a right osteochondromat extending off of the right ilium. The cartilage c ap has also increased in size. This may indicate malignant degeneration.
[2019-01-21] MEDS ORDERED: MAGNESIUM SULFATE 1 gm IVPB 1 GM/100 ML BAG IV ONE (09:00)
[2019-01-21] MEDS: metroNIDAZOLE 500 MG TABLET PO SCH ×2 (09:31→21:18)
[2019-01-21] MEDS ORDERED: MIDAZOLAM HCL 2 MG/2 ML INJ ONE (12:50)
[2019-01-21] MEDS ORDERED: LIDOCAINE 1% MPF 5 ML VIAL ONE (12:50)
[2019-01-21] MEDS ORDERED: PROPOFOL 200 MG/20 ML VIAL IV ONE (12:50)
--- NOTE | 2019-01-21 13:09 | ENDO RPT ---
[address], [address] EGD PROCEDURE REPORT EXAM DATE: 01/21/2019 PATIENT NAME: Roseann Rosen MR#: [id number] BIRTHDATE: 1990 ATTENDING: Mckay Selby Dr STATUS: inpatient - [facility] CLINICAL RADIOLOGIST: Kenny Echeverria RN, Ching Lomax RN, and Jael Mcclure INDICATIONS: The patient is a 28 yr old Female here for an EGD due to persistent nausea and vomiting (after resolvement of DKA), right upper quadrant abdominal pain, and periumbilical abdominal pain PROCEDURE PERFORMED: EGD with biopsy MEDICATIONS: Per Anesthesia. TOPICAL ANESTHETIC: none CONSENT: The patient understands the risks and benefits of the procedure and understands that these risks include, but are not limited to: sedation, allergic reaction, infection, perforation and/or bleeding. Alternative means of evaluation and treatment include, among others: physical exam, x-rays, and/or surgical intervention. The patient elects to proceed with this endoscopic procedure. DESCRIPTION OF PROCEDURE: During intra-op preparation period all mechanical medical equipment was checked for proper function. Hand hygiene and appropriate measures for infection prevention was taken. Procedure, possible complications, and alternatives including but not limited to the possibility of bleeding, perforation, tear, infection, sepsis, need for surgery, need for blood transfusion, and anesthesia related complications were explained to the patient. After the risks, benefits and alternatives of the procedure were thoroughly explained, Informed consent was verified, confirmed and timeout was successfully executed by the treatment team. The patient was placed in the left lateral position. The patient was anesthetized with topical anesthesia. Through the anesthetized oropharyngeal area, the scope was passed without any difficulty. The Pentax EG-[id number] ([id number]) endoscope was introduced through the mouth and advanced to the third portion of the duodenum. Retroflexed views revealed a moderate sized hiatal hernia. The gastroscope was then slowly withdrawn and removed. LA Class D esophagitis was found in the lower esophagus. A moderate sized hiatal hernia was found Moderate gastritis was found in the body of the stomach. Multiple biopsies were obtained and sent to pathology. ADVERSE EVENTS: There were no complications. IMPRESSIONS: 1. LA class D esophagitis in the lower esophagus 2. Moderate sized hiatal hernia 3. Moderate gastritis in the body of the stomach, s/p biopsies 4. Small bowel biopsies obtained RECOMMENDATIONS: 1. await biopsy results 2. acid suppression therapy 3. discontinue Marijuana REPEAT EXAM: Mckay Selby Dr eSigned: Mckay Selby Dr 01/21/2019 1:08 PM cc: CPT CODES: ICD9 CODES: PATIENT NAME: Roseann RosenRiley MR#: [id number]
[2019-01-21] MEDS ORDERED: SODIUM CHLORIDE 0.9% 10ML INJ IV PRN (13:50)
[2019-01-21] MEDS: PANTOPRAZOLE 40 MG INJ IVP SCH ×2 (14:11→21:18)
--- NOTE | 2019-01-21 16:21 | PN ---
Subjective: The patient seen and examined. Chart reviewed and case discussed with RN and Dr. Overton. The patient still having significant amount of nausea and vomiting, threw up the contrast given for her CT scan. Reglan has improved her symptoms now. Goes about 4 hours before vomiting. Still not a ble to tolerate any p.o. diet. GI was consulted yesterday. Physical Examination: Vital Signs: Temperature 98, heart rate 75, blood pressure 143/94, respirations 19, O2 99% on room a ir. General: Awake, alert, oriented x3. Some mild distress. Ill-appearing female. CV: S1, S2. Regular rate and rhythm. Peripheral pulses present. Respiratory: Moving air well bilaterally. No wheezing or stridor. Gastrointestinal: Abdomen is soft. Tenderness to palpation. No rebound or guarding. No palpable m asses. Bowel sounds positive. Extremities: No clubbing, cyanosis, or edema. Musculoskeletal: The patient with examined with female carpet inspector finished, Zeynep ICU nurse. No obvious def ormity, bilateral hips. No mass palpated. Neurologic: Nonfocal. Laboratory Data: Sodium 137, potassium 4, chloride 103, CO2 24, BUN 1, creatinine 0.82, glucose 180, calcium 8.4, phosphorus 2.6, magnesium 1.7. Blood cultures, no growth. Urine culture growing out m ixed grace. Imaging Studies: Abdominal x-ray personally reviewed shows nonspecific gaseous pattern. Diminished small left ilium osteochondroma appears unchanged, 4 x 6 cm calcified mass extends off the right iliu m, questionably enlarged when compared to CT of January 2018. CT scan of the abdomen and pelvis shows en largement of a right osteochondral mat extending off the right ilium. Cartilage cap was also increas ed in size, may indicate malignant degeneration. Assessment And Plan: A 28-year-old female with: 1.Diabetic ketoacidosis without coma, resolved. The patients anion gap is closed. The patient, how ever, unable to switch over to subcutaneous insulin due to her inability to tolerate p.o. intake. 2.Generalized abdominal pain improving. 3.Intractable nausea and vomiting may be related to gastroparesis. The patient has been started on Reglan which has improved patients symptoms, however, still symptomatic. GI has been consulted. The patient may benefit from endoscopy. 4.Trichomoniasis infection. Continue Flagyl for a total of 7 days. Partner needs to be tested and treated. 5.Marijuana abuse. Counseled. 6.Diabetes mellitus type 1 with ketoacidosis without coma. Hemoglobin A1c 8.9%. Currently still on IV insulin. We will continue to monitor Accu-Cheks. 7.Osteochondroma, bilateral ischium. Spoke with Dr. Overton, Orthopedics who recommends outpatient fol lowup with Dr. William Alcaraz at [facility], who is an orthopedic oncologist for further workup and treatme nt. Possibility of malignancy may need biopsy. We will discuss further with the patient. KAITLYNN Voice ID: [id number] Report ID: [id number]
[2019-01-21] MEDS: ENOXAPARIN 40 MG/0.4 ML SQ SCH (17:36)
[2019-01-21] MEDS ORDERED: D50W 25 GM/50 ML SYRINGE IV PRN (21:36)
[2019-01-21] MEDS ORDERED: GLUCAGON 1 MG/VIAL IM PRN (21:36)
[2019-01-21] MEDS ORDERED: INSULIN GLARGINE 100 UNITS/ML SQ SCH (21:36)
[2019-01-22 05:31] LABS: Absolute Monocytes 0.5 K/uL (0.1-1.3); Absolute Neutrophil 3.6 K/uL (1.8-8.0); Basophils % 0.9 % (0-1.3); Eosinophils % 1.9 % (0-4.4); Hematocrit 39.4 % (36.0-45.0); Lymphocytes % 53.2 % (15.3-44.8); Monocytes % 5.8 % (3.3-12.3); RBC Red Blood Cell Count 4.17 M/uL (3.86-4.86)
[2019-01-22 05:50] LABS: ALT/SGPT 33 U/L (12-78); AST/SGOT 45 U/L (15-37); Albumin 2.8 g/dL (3.4-5.0); Alkaline Phosphatase 135 U/L (45-117); BUN Blood Urea Nitrogen 3 mg/dL (7-18); Bicarbonate 30 mmol/L (21-32); Bilirubin Total 0.3 mg/dL (0.2-1.0); Glucose Level 63 mg/dL (74-106); Magnesium 2.1 mg/dL (1.8-2.4); Phosphorus 3.4 mg/dL (2.5-4.9); Potassium 4.2 mmol/L (3.5-5.1); Protein, Total 5.6 g/dL (6.4-8.2); Sodium Level 141 mmol/L (136-145)
[2019-01-22 06:48] VITALS: BMI 22.6
[2019-01-22] MEDS: INSULIN -REGULAR HUMAN 50 UNIT/0.5 ML ML SQ SCH ×2 (07:30→11:25)
[2019-01-22 07:43] LABS: Blood Morphology Comment NOT SEEN (NOT SEEN); Platelet Estimate ADEQ; Urine White Blood Cell Casts OK
[2019-01-22] MEDS: PANTOPRAZOLE 40 MG INJ IVP SCH (08:00)
[2019-01-22] MEDS: metroNIDAZOLE 500 MG TABLET PO SCH (08:00)
[2019-01-22 10:16] VITALS: O2SAT 100
--- NOTE | 2019-01-22 11:14 | P.PN ---
Subjective Date of Service: 01/22/19 Chief Complaint: DKA, intractable N/V Subjective: Improving (Minimal nausea today and no emesis. Tolerating solid food today.) Review of Systems 10-point ROS is otherwise unremarkable General: Weakness (Improved) Physical Examination - Vital Signs Temperature: 98.0 F Blood Pressure: 134/84 Pulse: 88 Respirations: 17 Pulse Ox (%): 100 - Physical Exam General: Alert, In no apparent distress, Oriented x3, Cooperative HEENT: Atraumatic, Normocephalic, PERRLA, EOMI Neck: Supple Respiratory: Normal air movement Cardiovascular: Normal pulses Neurological: Normal speech, Normal strength at 5/5 x4 extr Assessment And Plan - Current Problems (Diagnosis) (1) Nausea & vomiting Current Visit: Yes Status: Acute Comment: Much improved. Able to tolerate solid food today. (2) Abdominal pain Current Visit: Yes Status: Acute Qualifiers: Abdominal location: generalized Qualified Code(s): R10.84 - Generalized abdominal pain (3) Diabetic ketoacidosis Current Visit: Yes Status: Acute Qualifiers: Diabetes mellitus type: type 1 Diabetes mellitus complication detail: without coma Qualified Code(s): E10.10 - Type 1 diabetes mellitus with ketoacidosis without coma (4) Dehydration Current Visit: No Status: Acute (5) Marijuana abuse Current Visit: No Status: Chronic - Plan REC: 1) avoid marijuana 2) hot showers and prn Capsaicin 3) prn Reglan for < 1 month 4) GI clinic f/u
[2019-01-22 12:23] VITALS: TEMP 98.2
[2019-01-22 13:39] VITALS: BP 120/82
--- NOTE | 2019-01-23 03:02 | DS ---
Date of Discharge: 01/22/2019 Admitting Diagnoses: 1.Diabetic ketoacidosis, type 1, without coma. 2.Abdominal pain secondary to above. 3.Intractable nausea and vomiting. 4.Leukocytosis. 5.Diabetes mellitus, type 1, with ketoacidosis. Candle Wrapper: Dr. Selby with GI. Procedures: EGD on 01/21/2019, found to have class C esophagitis in the lower esophagus, moderate-si ze hiatal hernia, moderate gastritis in the body of the stomach, status post biopsies. Pathology [facility] biopsy results show no H. pylori, no malignancy, mild chronic inactive gastritis. Discharge Diagnoses: 1.Diabetic ketoacidosis without coma. 2.Generalized abdominal pain. 3.Intractable nausea, vomiting due to cyclical vomiting syndrome from marijuana use. 4.Trichomoniasis infection. 5.Marijuana abuse. 6.Osteochondroma, bilateral ischium. 7.Diabetes mellitus, type 1, with ketoacidosis without coma. Hospital Course: The patient is a 28-year-old female with type 1 diabetes, who used to be on an insu daniel pump, comes in with abdominal pain and severe nausea and vomiting. The patient was found to be i n DKA, had a blood sugar in 600s. Gap was 16. A pH was 7.21 and an elevated white count of 21,000. The patient's UA showed trichomoniasis. Her test was negative. UDS was positive for lalo jonathan. The patient was started on insulin drip. She was admitted to the ICU. The patient responded well. Her WBC count normalized. Her urine culture did not show any growth as did her blood culture s. The patient did have intractable nausea and vomiting improved slightly with antiemetics including multiple regimens. The patient was then seen by GI for her symptoms. Endoscopy was done, which lilian wed esophagitis and gastritis. No H. pylori organisms were identified on the pathology. The patient was then thought to have cyclical vomiting syndrome secondary to marijuana abuse. She was counseled . Incidental finding of osteochondroma on bilateral ischium was found. I spoke with Dr. Overton, ortho pedic surgeon, who recommended outpatient followup with Dr. William Alcaraz, who is an orthopedic oncologis t at [facility]. The patient was informed of her diagnosis. She understands the implications. She u nderstands that she needs to have this monitored and needs to go to see a specialist in order to do a biopsy to rule out malignant lesion. The patient is asymptomatic from her lesions other than some r educed range of motion of her right hip. The patient, otherwise, did well. She was able to tolerate a diet. She was taken off IV insulin. She was doing well with subcutaneous insulin. She was couns eled regarding her diabetes. She understands that as a type 1 diabetic, she has a risk of developing retinopathy, neuropathy, and nephropathy along with other complications including skin ulcerations a nd to have her diabetes well controlled, she will need a primary care physician and detective and intelligence analyst. She voiced understanding. The patient was then cleared for discharge. She was sent home in a [facility] condition. Activity: As tolerated. Medications: As per medication reconciliation list. She will finish off course of Flagyl for her tr ichomoniasis. She understands that her partner needs to be treated and tested. Otherwise, she can b ecome reinfected. Avoid sexual activity until antibiotic course is completed. Followup: Follow up with primary care physician in 2-3 days. Follow up with orthopedic oncologist, Dr. William Alcaraz at [facility], in 1-2 weeks. Return to ER for worsening condition. The patient was pro vided contact information for the specialist. Physical Examination: General: Awake, alert, oriented, no acute distress. CV: S1, S2. No murmurs. Respiratory: Moving air well bilaterally. Abdomen: Soft, nontender, nondistended. Positive bowel sounds. Extremities: No clubbing, cyanosis, edema. Neuro: Nonfocal. Total time spent discharging the patient was 41 minutes. /CECIL Voice ID: [id number] Report ID: [id number]
--- NOTE | 2019-02-02 08:09 | CON ---
Date of Consultation: 01/21/2019 Reason For Consultation: Intractable nausea, vomiting. History Of Present Illness: The patient is a 28-year-old white female with history of diabetes type 1 and bone spurs, genetic bone defect. The patient presented to the hospital with diabetic ketoacido sis, treated in ICU. Diabetic ketoacidosis resolved with negative ketone in blood and urine. The pa richard continues to have intractable nausea, vomiting. She does interestingly give a history of marij uana use with last use being the previous Friday, 5 days ago. She also has some right upper quadra nt pain, but denies any fevers, chills, night sweats, melena, hematochezia, hematemesis, coffee-groun ds emesis. No history of heart conditions, kidney problems, neurologic problems at the age of 28 yea rs old. Allergies: NKDA. Medications: Medications at home include NovoLog insulin, Cipro, Zofran. Past Medical History: Significant for diabetes; bone spurs, left wrist bone spur, left shoulder bone spur; wisdom teeth extraction. Social History: Single. No tobacco. Occasional marijuana. Occasional alcohol, which is beer. Family History: Father alive, hypercholesterolemia. Mother alive with coronary artery disease, hype rcholesterolemia, and arthritis. Review of Systems: The patient has intractable nausea, vomiting, right upper quadrant pain. Denies any fevers, chills, night sweats, heat or cold intolerance, muscle aches, joint aches, backaches, melena, hematochezia, h ematemesis, coffee-grounds emesis, hematuria, dysuria, polyuria, polydipsia, hemoptysis, lower extrem ity muscle aches. She does have joint aches, however, with a bone spur problem. No depression or an xiety noted, though she is on marijuana . Physical Examination: Vital Signs: The patient is 5 feet, 116 pounds, BMI 22.7 kg/meter squared. She has a temperature of 97.8 degrees Fahrenheit, pulse 82, respirations 12, blood pressure 144/104, O2 saturation 99%. HEENT: Normocephalic, atraumatic. Anicteric. Pupils equal, round, and reactive to light. Extraocu lar movements are clear. Neck: Supple. No masses. Respirations: Clear to auscultation bilaterally. Cardiac: Regular rate, rhythm. Gastrointestinal: Positive bowel sounds. Soft. Nondistended. Some mild right upper quadrant tende rness, but no peritoneal or Patricio sign. No hepatosplenomegaly. Extremities: No clubbing, cyanosis, or edema. 2+ pulses. Neuro: Alert and oriented x3. Grossly nonfocal. 5/5 motor strength. Sensation intact to light ismael ch. Laboratory Data: The patient has a white count on of 10.8, down from 21.4 on admission on January 06, hemoglobin of 13.5, hematocrit 39.3, and MCV of 94, platelet count 304, neutrophils of 80, polys o f 15%, monocytes 5%, eosinophils . On admission, patient had pH of 7.21, pCO2 of 11.5, Alka 2 of 131.4, FiO2 of room air 21%. Sodium 141, potassium 4.2, chloride 107, bicarb 30, BUN of 3, creatinine of 0.6, glucose 63, hemoglob in A1c back on the of 8.9. Sodium 137, potassium 4.0, chloride 103, bicarb 24, BUN of , creatinine of 0.82, glucose 18 0, calcium 8.4, phosphate 2.6, , phosphorus 1.6. She had AST of 25, ALT of 35 on the h w ith alkaline phosphatase 156, total protein 6.0, albumin 3.2, total bilirubin 0.6. UA on the sh owed 3+ ketones, 1+ leukocyte esterase, white blood cell count 20 to 50 less than 5, Trich omonas present, 3+ glucose, trace protein, negative test. Positive screen for urine THC, c annabis on the ; acetone level small on , small on the small on the , it appears in ICU it has been negative as per yesterday. CT abdomen and pelvis on the revealed enlargement on the right ostial off right iliac crest, and cartilage cap is also increased in size malignant degeneration. She has a his tory of bone spurs she reported earlier. Impression: 1.Nausea, vomiting, intractable with history of marijuana use. Last use was 5 days ago on Friday. She also some mild right upper quadrant pain on exam. She denies any fevers, chills, night sweats, melena, hematochezia, , hematuria, hemoptysis. 2.History of diabetes type 1 with diabetes ketoacidosis, bone spurs in the past. Recommendation: 1.Discontinue all marijuana. The patient can consider using hot showers and topical capsaicin. Pro ceed with EGD evaluation due to right upper quadrant pain. 2.Continue p.r.n. antiemetics, pain medicines. The limb may not be due to marijuana use. Continue IV fluids. 3.PPI therapy. GUILLERMO Voice ID: [id number] Report ID: [id number]
== END 2019-01-22 13:30 | disposition home or self-care (01) | DRG 639 ==
LOC: ER 11:37 → ERHOLD 15:07 → 3RD-ICU 21:41
PROVIDERS: ADMIT Family Medicine; ATTEND Family Medicine
PROC: 0DB68ZX Excision of Stomach, Via Natural or Artificial Opening Endoscopic, Diagnostic (ICD-10-PCS; principal; 2019-01-21 11:00)
DX: E10.10 Type 1 diabetes mellitus with ketoacidosis without coma (principal); R11.2 Nausea with vomiting, unspecified; D72.829 Elevated white blood cell count, unspecified; F12.10 Cannabis abuse, uncomplicated; E10.43 Type 1 diabetes mellitus with diabetic autonomic (poly)neuropathy; K31.84 Gastroparesis; K20.8 Other esophagitis; K44.9 Diaphragmatic hernia without obstruction or gangrene; E86.0 Dehydration; D16.8 Benign neoplasm of pelvic bones, sacrum and coccyx; A59.9 Trichomoniasis, unspecified; K29.50 Unspecified chronic gastritis without bleeding
CPT/HCPCS: 36415; 74019; 74177; 80048; 80053; 80061; 80076; 80307; 81003; 81015; 81025; 82010; 82805; 82962; 83036; 83690; 83735; 84100; 85025; 87040; 87086; 87088; 88305; 88312; 96365; 96366; 96367; 96372; 96375; 99285; C9113; J0696; J1650; J2250; J2405; J2550; J2704; J2765; J3475; J7030; Q9967

== ENCOUNTER 2019-02-03 13:11 | Emergency (ER) | payer SELFPAY ==
--- OUTSIDE RECORDS SUMMARY | 2019-02-03 13:13 | XMS REPORT | Clinical Summary ---
:1990 Author Organization [facility] Address [address] [place] [address] Care Team Providers Name Role Phone Johanna [...] Not on file Results Not on fileafter 02/02/2018
--- OUTSIDE RECORDS SUMMARY | 2019-02-03 13:14 | XMS REPORT | CCD ---
:1990 Author Organization [facility] Care Team Providers Name Role Phone Johanna Gutierrez Referring Provider Allergies, Adverse Reactions, Alerts Substance Reaction Status NKDA Active
--- OUTSIDE RECORDS SUMMARY | 2019-02-03 13:14 | XMS REPORT | Continuity of Care Document ---
:1990 Author Organization Interface Problems Problem Status Onset Classification Date Comments Source Date Reported 680.8 STAPH Active [facility] INFECTION 4 Medications Medication Details Route Status Patient Ordering Order Source Instructions Provider Date Insulin, See Active 11/14/19 [facility] Aspart, Human Instructio 18 Group 100 UNT/ML ns, used Injectable in insluin Solution pump with [NovoLog] boluses and basal rate, average units used per day 120 units, # 300 mL, 3 Refill(s), Pharmacy: [id number] Allergies, Adverse Reactions, Alerts Substance Category Reaction Severity Reaction Status Date Comments Source type Reported Immunizations Immunization Date Given Site Status Last Updated Comments Source Results Order Results Value Reference Date Interpretation Comments Source Name Range Brain wo Brain wo CT HEAD WITHOUT CONTRAST. 10/22 - contrast contrast /2013 - [facility] CT CT INDICATION: Scalp staph infection. [...] [facility] BMI Calculated 24.17 11/13/2017 [facility] Temperature Oral (F) 97.7 F 11/13/2017 [facility] Heart Rate 91 11/13/2017 [facility] Height 152.4 cm 11/13/2017 [facility] Systolic (mm Hg) 139 11/13/2017 [facility] Diastolic (mm Hg) 91 11/13/2017 [facility] Encounters Location Location Encounter Encounter Reason Attending ADM DC Status Source Details Type Number For Provider Date Date Visit Outpatient [id number] 680.8 CARLOS ALBERTO 10/22 Active [facility] INFECTIO t N Outpatient [id number] CARLOS ALBERTO 06/27 Active [facility] Outpatient [id number] CARLOS ALBERTO 11/13 Active [facility] Outpatient [id number] Carlos Alberto 11/13 11/14 Primary Medical Care [facility] Outpatient [id number] CARLOS ALBERTO 12/03 [facility] Ambulatory [id number] Carlos Alberto 12/03 12/03 Primary Pre-Reg [facility] Care [facility] Procedures Procedure Code Date Perfomer Comments Source
--- OUTSIDE RECORDS SUMMARY | 2019-02-03 13:14 | XMS REPORT ---
:1990 Author Organization [facility] Address [address] [place] [address] Care Team Providers Name Role Phone RIKY [...] Reference Range Comments KETONES, BLOOD (BEAKER) (test hnnb=7594) 0.4 mmol/L <0.4 BASIC METABOLIC [id number] 21:43:00 Test Item Value Reference Range Comments SODIUM (BEAKER) (test 141 meq/L 136-145 dnyl=666) POTASSIUM (BEAKER) (test 2.9 meq/L 3.5-5.1 lwsx=927) CHLORIDE (BEAKER) (test 115 meq/L 98-107 xlia=123) CO2 (BEAKER) (test 15 meq/L 22-29 omlx=860) BLOOD UREA NITROGEN 10 mg/dL 7-21 (BEAKER) (test mxxa=920) CREATININE (BEAKER) (test 0.70 mg/dL 0.57-1.25 tmbc=176) GLUCOSE RANDOM (BEAKER) 200 mg/dL 70-105 (test dmad=962) CALCIUM (BEAKER) (test 7.1 mg/dL 8.4-10.2 hher=421) EGFR (BEAKER) (test 103 mL/min/1.73 sq m ESTIMATED GFR IS NOT qvdb=1358) ACCURATE CREATININE CLEARANCE IN PREDICTING GLOMERULAR FILTRATION RATE. ESTIMATED GFR IS NOT APPLICABLE FOR DIALYSIS PATIENTS. URINALYSIS W/ [id number] 20:41:00 Test Item Value Reference Range Comments COLOR (BEAKER) (test fsse=931) Light Yellow CLARITY (BEAKER) (test mzfn=307) Clear SPECIFIC GRAVITY UA (BEAKER) (test 1.015 1.001-1.035 jdzo=848) PH UA (BEAKER) (test hmki=707) 5.0 5.0-8.0 PROTEIN UA (BEAKER) (test bkpq=204) Negative Negative GLUCOSE UA (BEAKER) (test aanr=142) >1000 mg/dL Negative KETONES UA (BEAKER) (test zynz=246) Negative Negative BILIRUBIN UA (BEAKER) (test kkex=619) Negative Negative BLOOD UA (BEAKER) (test uswa=035) Negative Negative NITRITE UA (BEAKER) (test fotg=322) Negative Negative LEUKOCYTE ESTERASE UA (BEAKER) (test Negative Negative gtgm=786) UROBILINOGEN UA (BEAKER) (test mytb=429) 0.2 mg/dL 0.2-1.0 RBC UA (BEAKER) (test qmje=056) 0 /HPF WBC UA (BEAKER) (test bgzu=876) < /HPF BACTERIA (BEAKER) (test vzdd=578) Rare SQUAMOUS EPITHELIAL (BEAKER) (test 1 /HPF dhtg=669) SOURCE(BEAKER) (test baul=7034) Urine, Clean Catch SCREEN, [id number] 20:32:00 Test Item Value Reference Range Comments TEST URINE (BEAKER) (test pnpe=189) Negative POCT-GLUCOSE [id number] 20:10:00 Test Item Value Reference Range Comments POC-GLUCOSE METER (BEAKER) 348 mg/dL 70-[address] [facility] [address] [facility] (test vefk=1650) [facility] [address] BASIC METABOLIC [id number] 19:39:00 Test Item Value Reference Range Comments SODIUM (BEAKER) (test 132 meq/L 136-145 ofgw=079) POTASSIUM (BEAKER) (test 3.9 meq/L 3.5-5.1 whlp=182) CHLORIDE (BEAKER) (test 100 meq/L 98-107 hvlg=535) CO2 (BEAKER) (test 17 meq/L 22-29 csju=283) BLOOD UREA NITROGEN 13 mg/dL 7-21 (BEAKER) (test cmoq=909) CREATININE (BEAKER) (test 1.00 mg/dL 0.57-1.25 tfuy=101) GLUCOSE RANDOM (BEAKER) 524 mg/dL 70-105 (test adua=466) CALCIUM (BEAKER) (test 8.8 mg/dL 8.4-10.2 derp=725) EGFR (BEAKER) (test mL/min/1.73 sq m INSUFFICIENT CLINICAL DATA lwcn=3362) TO CALCULATE ESTIMATED GFR. CBC W/PLT COUNT & AUTO [id number] 19:08:00 Test Item Value Reference Range Comments WHITE BLOOD CELL COUNT (BEAKER) (test fykw=221) 10.0 K/ L 4.0-10.0 RED BLOOD CELL COUNT (BEAKER) (test jgpd=206) 4.59 M/ L 4.00-5.00 HEMOGLOBIN (BEAKER) (test cvod=565) 15.0 GM/DL 12.0-15.0 HEMATOCRIT (BEAKER) (test pfim=403) 43.3 % 36.0-45.0 MEAN CORPUSCULAR VOLUME (BEAKER) (test mhyb=081) 94.3 fL 82.0-99.0 MEAN CORPUSCULAR HEMOGLOBIN (BEAKER) (test 32.6 pg 27.0-33.0 kloz=588) MEAN CORPUSCULAR HEMOGLOBIN CONC (BEAKER) (test 34.5 GM/DL 32.0-36.0 lmdu=789) RED CELL DISTRIBUTION WIDTH (BEAKER) (test 12.8 % 10.3-14.2 yfkc=853) PLATELET COUNT (BEAKER) (test fonu=960) 238 K/CU MM 150-430 MEAN PLATELET VOLUME (BEAKER) (test gwvp=839) 7.3 fL 6.5-10.5 NUCLEATED RED BLOOD CELLS (BEAKER) (test 0 /100 WBC 0-0 cmnt=303) NEUTROPHILS RELATIVE PERCENT (BEAKER) (test 63 % pdck=348) LYMPHOCYTES RELATIVE PERCENT (BEAKER) (test 33 % vkzx=431) MONOCYTES RELATIVE PERCENT (BEAKER) (test 3 % dkji=237) EOSINOPHILS RELATIVE PERCENT (BEAKER) (test 0 % fbgf=658) BASOPHILS RELATIVE PERCENT (BEAKER) (test 1 % azwh=276) NEUTROPHILS ABSOLUTE COUNT (BEAKER) (test 6.30 K/ L 1.80-8.00 lahd=992) LYMPHOCYTES ABSOLUTE COUNT (BEAKER) (test 3.24 K/ L 1.48-4.50 yhmp=427) MONOCYTES ABSOLUTE COUNT (BEAKER) (test 0.27 K/ L 0.00-1.30 dbhj=617) EOSINOPHILS ABSOLUTE COUNT (BEAKER) (test 0.05 K/ L 0.00-0.50 emiv=564) BASOPHILS ABSOLUTE COUNT (BEAKER) (test 0.09 K/ L 0.00-0.20 cnlw=496) 0.00POCT-GLUCOSE [id number] 18:37:00 Test Item Value Reference Range Comments POC-GLUCOSE METER (BEAKER) 458 mg/dL 70-[address] [facility] [address] [facility] (test vtpl=4276) [facility] [address]
[2019-02-03 14:26] LABS: Urine Blood NEGATIVE (NEG); Urine Glucose 2+ (NEG); Urine Protein 1+ (NEG); Urine Specific Gravity >1.030 (1.005-1.030); Urine pH 5.5 (5.0-7.0)
[2019-02-03 14:29] LABS: Absolute Monocytes 0.2 K/uL (0.1-1.3); Absolute Neutrophil 10.7 K/uL (1.8-8.0); Basophils % 0.2 % (0-1.3); Lymphocytes % 8.1 % (15.3-44.8); Monocytes % 1.8 % (3.3-12.3); RBC Red Blood Cell Count 5.17 M/uL (3.86-4.86)
[2019-02-03] MEDS ORDERED: METOCLOPRAMIDE 10 MG/2mL INJ ONE (14:34)
[2019-02-03] MEDS ORDERED: NA CHLORIDE 0.9% 1,000 ML ONE ×2 (14:34→16:03)
[2019-02-03] MEDS ORDERED: ONDANSETRON 4 MG/2 ML VIAL ONE ×2 (14:47→16:03)
[2019-02-03 14:48] LABS: ALT/SGPT 34 U/L (12-78); AST/SGOT 15 U/L (15-37); Albumin 5.2 g/dL (3.4-5.0); Alkaline Phosphatase 136 U/L (45-117); BUN Blood Urea Nitrogen 14 mg/dL (7-18); Bicarbonate 21 mmol/L (21-32); Bilirubin Direct 0.2 mg/dL (0-0.2); Bilirubin Total 1.2 mg/dL (0.2-1.0); Glucose Level 295 mg/dL (74-106); Lipase 41 U/L (73-393); Potassium 3.8 mmol/L (3.5-5.1); Protein, Total 9.8 g/dL (6.4-8.2); Sodium Level 133 mmol/L (136-145)
[2019-02-03 15:12] LABS: Blood Morphology Comment NOTED (NOT SEEN); Platelet Estimate ADEQ; Stomatocytes 2+; Urine White Blood Cell Casts OK
--- NOTE | 2019-02-03 17:02 | EDPHYS ---
Physician Documentation [facility] Name: Roseann Rosen Age: 28 yrs Sex: Female : 1990 Arrival Date: 02/03/2019 Time: 13:15 Bed 20 Private MD: [place]SE[place] Physician Arash Santiago HPI: 02/03 15:17 This 28 yrs old Female presents to ER via Wheelchair with complaints of jr8 Vomiting. 15:17 The patient presents to the emergency department with nausea, vomiting, diarrhea. jr8 Onset: The symptoms/episode began/occurred acutely, today. Possible causes: unknown. The symptoms are aggravated by nothing. The symptoms are alleviated by nothing. Associated signs and symptoms: The patient has no apparent associated signs or symptoms. Severity of symptoms: At their worst the symptoms were moderate in the emergency department the symptoms are unchanged. It is unknown whether or not the patient has had similar symptoms in the past. The patient has not recently seen a physician. Stated that she woke up feeling bad this morning. Multiple episodes of vomiting. One episode of diarrhea. History of DKA in past . 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 - Social history:: Smoking status: Patient/guardian denies using tobacco. - Ebola Screening: : No symptoms or risks identified at this time. ROS: 15:17 Eyes: Negative for injury, pain, redness, and discharge, ENT: Negative for injury, jr8 pain, and discharge, Neck: Negative for injury, pain, and swelling, Cardiovascular: Negative for chest pain, palpitations, and edema, Respiratory: Negative for shortness of breath, cough, wheezing, and pleuritic chest pain, Back: Negative for injury and pain, MS/Extremity: Negative for injury and deformity, Skin: Negative for injury, rash, and discoloration, Neuro: Negative for headache, weakness, numbness, tingling, and seizure. 15:17 Abdomen/GI: Positive for nausea, vomiting, and diarrhea, abdominal cramps, Negative for constipation, abdominal distension, anorexia, dysphagia, hematemesis, black/tarry stool, rectal pain, rectal bleeding, bowel incontinence, flatulence. Exam: 15:17 Eyes: Pupils equal round and reactive to light, extra-ocular motions intact. Lids and jr8 lashes normal. Conjunctiva and sclera are non-icteric and not injected. Cornea within normal limits. Periorbital areas with no swelling, redness, or edema. ENT: Nares patent. No nasal discharge, no septal abnormalities noted. Tympanic membranes are normal and external auditory canals are clear. Oropharynx with no redness, swelling, or masses, exudates, or evidence of obstruction, uvula midline. Mucous membranes moist. Neck: Trachea midline, no thyromegaly or masses palpated, and no cervical lymphadenopathy. Supple, full range of motion without nuchal rigidity, or vertebral point tenderness. No Meningismus. Cardiovascular: Regular rate and rhythm with a normal S1 and S2. No gallops, murmurs, or rubs. Normal PMI, no JVD. No pulse deficits. Respiratory: Lungs have equal breath sounds bilaterally, clear to auscultation and percussion. No rales, rhonchi or wheezes noted. No increased work of breathing, no retractions or nasal flaring. Abdomen/GI: Soft, non-tender, with normal bowel sounds. No distension or tympany. No guarding or rebound. No evidence of tenderness throughout. Back: No spinal tenderness. No costovertebral tenderness. Full range of motion. Skin: Warm, dry with normal turgor. Normal color with no rashes, no lesions, and no evidence of cellulitis. MS/ Extremity: Pulses equal, no cyanosis. Neurovascular intact. Full, normal range of motion. Neuro: Awake and alert, GCS 15, oriented to person, place, time, and situation. Cranial nerves II-XII grossly intact. Motor strength 5/5 in all extremities. Sensory grossly intact. Cerebellar exam normal. Normal gait. Vital Signs: 13:28 BP 136 / 73; Pulse 105; Resp 16 S; Temp 98.0(TE); Pulse Ox 100% on R/A; Weight 53.52 kg aa5 (R); Height 5 ft. 0 in. (152.40 cm) (R); Pain 8/10; 14:36 BP 135 / 75; Pulse 99; Resp 18; Pulse Ox 99% on R/A; hj 15:33 BP 106 / 58; Pulse 102; Resp 18; Pulse Ox 100% on R/A; hj 16:08 BP 111 / 67; Pulse 99; Resp 18; Pulse Ox 100% on R/A; hj 17:10 BP 111 / 78; Pulse 98; Resp 18; Pulse Ox 100% on R/A; hj 13:28 Body Mass Index 23.05 (53.52 kg, 152.40 cm) aa5 MDM: 13:39 Patient medically screened. 8 16:59 Data reviewed: vital signs, nurses notes, lab test result(s), and as a result, I will jr8 discharge patient. Data interpreted: Pulse oximetry: on room air is 100 %. Interpretation: normal. Counseling: I had a detailed discussion with the patient and/or guardian regarding: the historical points, exam findings, and any diagnostic results supporting the discharge/admit diagnosis, lab results, the need for outpatient follow up, a family practitioner, to return to the emergency department if symptoms worsen or persist or if there are any questions or concerns that arise at home. Response to treatment: the patient's symptoms have markedly improved after treatment, patient is well hydrated. ED course: Patient feeling much better. Negative Ion gap. No vomiting since first round of zofran. Tolerates PO fluids. Will d/c home on nausea medicine. To watch glucose closely. If worse to come back. More then likely gastroenteritis that stemmed the n/v/d . 02/03 13:57 Order name: Urine Dipstick--Ancillary (enter results); Complete Time: 14:42 02/03 13:57 Order name: Urine --Ancillary (enter results); Complete Time: 14:42 02/03 14:04 Order name: CBC with Diff; Complete Time: 15:21 [facility] 02/03 14:04 Order name: Basic Metabolic Panel; Complete Time: 15:38 02/03 14:04 Order name: LFT's; Complete Time: 15:38 02/03 14:04 Order name: Lipase; Complete Time: 15:38 02/03 14:04 Order name: IV; Complete Time: 14:08 02/03 14:05 Order name: Ketone, Serum; Complete Time: 15:38 02/03 14:37 Order name: CBC Smear Scan; Complete Time: 15:21 EDMS Administered Medications: 14:10 Drug: NS 0.9% (20 ml/kg) 20 ml/kg Route: IV; Rate: 1 bolus; Site: right antecubital; hj 15:30 Follow up: IV Status: Completed infusion; IV Intake: 1070ml hj 14:10 Drug: Reglan 10 mg Route: IVP; Site: right antecubital; hj 15:31 Follow up: Response: No adverse reaction hj 15:49 Drug: NS 0.9% 1000 ml Route: IV; Rate: 1000 ml; Site: right antecubital; hj 17:12 Follow up: IV Status: Completed infusion; IV Intake: 1000ml hj 15:49 Drug: Zofran 4 mg Route: IVP; Site: right antecubital; hj 17:12 Follow up: Response: No adverse reaction; Nausea is decreased hj Point of Care Testing: Blood Glucose: 13:59 Blood Glucose: 276 mg/dL; hj Ranges: Critical Glucose Levels:Adult <50 mg/dl or >400 mg/dl <40 mg/dl or >180 mg/dl Disposition: 02/04 06:56 Co-signature as Attending Physician, Arash Santiago MD I agree with the assessment and roseline plan of care. Disposition: 02/03/19 17:01 Discharged to Home. Impression: Acute Gastroenteritis. - Condition is Stable. - Discharge Instructions: Viral Gastroenteritis, Adult. - Prescriptions for Zofran ODT 4 mg Oral tablet,disintegrating - place 1 tablet by TRANSLINGUAL route every 6 hours As needed; 12 tablet. - Medication Reconciliation Form, Thank You Letter, Antibiotic Education, Prescription Opioid Use form. - Follow up: Private Physician; When: 2 - 3 days; Reason: Recheck today's complaints, Continuance of care, Re-evaluation by your physician. - Problem is new. - Symptoms have improved. Signatures: Dispatcher [employer] Arash Wheeler MD MD cha Calderon, Audri, RN RN aa5 Maxim Reyna PA PA jr8 Omi Mccullough RN RN hj Corrections: (The following items were deleted from the chart) 02/03 17:12 17:01 02/03/2019 17:01 Discharged to Home. Impression: Acute Gastroenteritis. Condition hj is Stable. Forms are Medication Reconciliation Form, Thank You Letter, Antibiotic Education, Prescription Opioid Use. Follow up: Private Physician; When: 2 - 3 days; Reason: Recheck today's complaints, Continuance of care, Re-evaluation by your physician. Problem is new. Symptoms have improved. jr8
--- NOTE | 2019-02-03 17:02 | ER ---
Nurse's Notes [facility] Name: Roseann Rosen Age: 28 yrs Sex: Female : 1990 Arrival Date: 02/03/2019 Time: 13:15 Bed 20 Private MD: Diagnosis: Acute Gastroenteritis Presentation: 02/03 13:27 Presenting complaint: Patient states: Nausea, vomiting, and diarrhea that began today. aa5 Pt also c/o abd pain. Pt states "I was here with the same thing a couple of weeks ago and they diagnosed me with gastroparesis". Transition of care: patient was not received from another setting of care. Onset of symptoms was February 03, 2019. Risk Assessment: Do you want to hurt yourself or someone else? Patient reports no desire to harm self or others. Initial Sepsis Screen: Does the patient meet any 2 criteria? No. Patient's initial sepsis screen is negative. Does the patient have a suspected source of infection? No. Patient's initial sepsis screen is negative. Care prior to arrival: None. 13:27 Method Of Arrival: Wheelchair aa5 13:27 Acuity: DRE 3 aa5 Triage Assessment: 13:53 General: Appears in no apparent distress. uncomfortable, Behavior is calm, cooperative, hj appropriate for age. Pain: Complains of pain in abdomen. GI: Reports nausea. 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 - Social history:: Smoking status: Patient/guardian denies using tobacco. - Ebola Screening: : No symptoms or risks identified at this time. Screenin:53 Abuse screen: Denies threats or abuse. Denies injuries from another. Nutritional hj screening: No deficits noted. Tuberculosis screening: No symptoms or risk factors identified. Fall Risk None identified. Assessment: 13:54 GI: Abdomen is non-distended, Pt is actively vomiting. hj 13:54 General: Appears in no apparent distress. uncomfortable, Behavior is calm, cooperative, hj appropriate for age. Pain: Complains of pain in abdomen. Neuro: Level of Consciousness is awake, alert, obeys commands, Oriented to person, place, time, situation, Appropriate for age. Cardiovascular: Capillary refill < 3 seconds Patient's skin is warm and dry. Respiratory: Airway is patent Respiratory effort is even, unlabored, Respiratory pattern is regular, symmetrical, GI: Reports nausea, vomiting. : No signs and/or symptoms were reported regarding the genitourinary system. EENT: No signs and/or symptoms were reported regarding the EENT system. Derm: No signs and/or symptoms reported regarding the dermatologic system. Musculoskeletal: No signs and/or symptoms reported regarding the musculoskeletal system. 14:36 Reassessment: Patient and/or family updated on plan of care and expected duration. Pain hj level reassessed. Patient is alert, oriented x 3, equal unlabored respirations, skin warm/dry/pink. awaiting results; pt actively vomiting; provider informed; withe orders;. 15:34 Reassessment: Patient and/or family updated on plan of care and expected duration. Pain hj level reassessed. Patient is alert, oriented x 3, equal unlabored respirations, skin warm/dry/pink. awaiting results and POC:. 16:08 Reassessment: Patient and/or family updated on plan of care and expected duration. Pain hj level reassessed. Patient is alert, oriented x 3, equal unlabored respirations, skin warm/dry/pink. awaiting fluids to be finished; Patient states feeling better. 17:09 Reassessment: Patient and/or family updated on plan of care and expected duration. Pain hj level reassessed. Patient is alert, oriented x 3, equal unlabored respirations, skin warm/dry/pink. D/C instructions given;. Vital Signs: 13:28 BP 136 / 73; Pulse 105; Resp 16 S; Temp 98.0(TE); Pulse Ox 100% on R/A; Weight 53.52 kg aa5 (R); Height 5 ft. 0 in. (152.40 cm) (R); Pain 8/10; 14:36 BP 135 / 75; Pulse 99; Resp 18; Pulse Ox 99% on R/A; hj 15:33 BP 106 / 58; Pulse 102; Resp 18; Pulse Ox 100% on R/A; hj 16:08 BP 111 / 67; Pulse 99; Resp 18; Pulse Ox 100% on R/A; hj 17:10 BP 111 / 78; Pulse 98; Resp 18; Pulse Ox 100% on R/A; hj 13:28 Body Mass Index 23.05 (53.52 kg, 152.40 cm) aa5 ED Course: 13:15 Patient arrived in ED. mr 13:26 Arm band placed on. aa5 13:28 Triage completed. aa5 13:36 Omi Mccullough, CARLOS is Primary Nurse. hj 13:39 Maxim Reyna PA is PHCP. jr8 13:39 Arash Santiago MD is Attending Physician. jr 13:50 Initial lab(s) drawn, by vt, sent to lab. Urine collected: clean catch specimen. hj Inserted saline lock: 22 gauge in right antecubital area, using aseptic technique. Blood collected. 13:54 Patient has correct armband on for positive identification. Bed in low position. Call hj light in reach. Side rails up X 1. 17:10 No provider procedures requiring assistance completed. IV discontinued, intact, hj bleeding controlled, No redness/swelling at site. Pressure dressing applied. Administered Medications: 14:10 Drug: NS 0.9% (20 ml/kg) 20 ml/kg Route: IV; Rate: 1 bolus; Site: right antecubital; hj 15:30 Follow up: IV Status: Completed infusion; IV Intake: 1070ml hj 14:10 Drug: Reglan 10 mg Route: IVP; Site: right antecubital; hj 15:31 Follow up: Response: No adverse reaction hj 15:49 Drug: NS 0.9% 1000 ml Route: IV; Rate: 1000 ml; Site: right antecubital; hj 17:12 Follow up: IV Status: Completed infusion; IV Intake: 1000ml hj 15:49 Drug: Zofran 4 mg Route: IVP; Site: right antecubital; hj 17:12 Follow up: Response: No adverse reaction; Nausea is decreased Point of Care Testing: Blood Glucose: 13:59 Blood Glucose: 276 mg/dL; ada Ranges: Intake: 15:30 IV: 1070ml; Total: 1070ml. hj 17:12 IV: 1000ml; Total: 2070ml. Outcome: 17:01 Discharge ordered by . yusef 17:11 Discharged to home ambulatory. 17:11 Condition: stable 17:11 Discharge instructions given to patient, Instructed on discharge instructions, follow up and referral plans. medication usage, Demonstrated understanding of instructions, follow-up care, medications, Prescriptions given X 1. 17:12 Patient left the ED. Signatures: Iza Lomax mr EdenNette, RN RN aa5 Maxim Reyna PA PA jr8 Omi Mccullough RN RN
[2019-02-03 17:23] VITALS: TEMP 98
[2019-02-03 17:26] VITALS: O2SAT 100
[2019-02-03 17:29] VITALS: BP 111/78
== END 2019-02-03 17:12 | disposition home or self-care (01) ==
LOC: ER 13:11
DX: K52.9 Noninfective gastroenteritis and colitis, unspecified (principal); E11.9 Type 2 diabetes mellitus without complications; Z79.4 Long term (current) use of insulin
CPT/HCPCS: 36415; 80048; 80076; 81003; 81025; 82010; 82962; 83690; 85025; 96361; 96374; 96375; 99284; J2405; J2765; J7030

== ENCOUNTER 2019-02-18 00:30 | Inpatient (IN) | payer SELFPAY ==
--- OUTSIDE RECORDS SUMMARY | 2019-02-18 00:32 | XMS REPORT | Clinical Summary ---
:1990 Author Organization [facility] Address [address] [place] [address] Care Team Providers Name Role Phone Johanna [...] Not on file Results Not on fileafter 02/17/2018
--- OUTSIDE RECORDS SUMMARY | 2019-02-18 00:33 | XMS REPORT ---
:1990 Author Organization [facility] Address [address] [place] [address] Care Team Providers Name Role Phone RIKY [...] Reference Range Comments KETONES, BLOOD (BEAKER) (test bisx=0782) 0.4 mmol/L <0.4 BASIC METABOLIC [id number] 21:43:00 Test Item Value Reference Range Comments SODIUM (BEAKER) (test 141 meq/L 136-145 mmqi=597) POTASSIUM (BEAKER) (test 2.9 meq/L 3.5-5.1 ovdi=759) CHLORIDE (BEAKER) (test 115 meq/L 98-107 ghfq=218) CO2 (BEAKER) (test 15 meq/L 22-29 rfsq=728) BLOOD UREA NITROGEN 10 mg/dL 7-21 (BEAKER) (test nqda=533) CREATININE (BEAKER) (test 0.70 mg/dL 0.57-1.25 zsxv=221) GLUCOSE RANDOM (BEAKER) 200 mg/dL 70-105 (test geup=936) CALCIUM (BEAKER) (test 7.1 mg/dL 8.4-10.2 mczv=548) EGFR (BEAKER) (test 103 mL/min/1.73 sq m ESTIMATED GFR IS NOT hjat=1122) ACCURATE CREATININE CLEARANCE IN PREDICTING GLOMERULAR FILTRATION RATE. ESTIMATED GFR IS NOT APPLICABLE FOR DIALYSIS PATIENTS. URINALYSIS W/ [id number] 20:41:00 Test Item Value Reference Range Comments COLOR (BEAKER) (test zorv=647) Light Yellow CLARITY (BEAKER) (test bean=444) Clear SPECIFIC GRAVITY UA (BEAKER) (test 1.015 1.001-1.035 xarp=141) PH UA (BEAKER) (test sosu=252) 5.0 5.0-8.0 PROTEIN UA (BEAKER) (test cbzl=908) Negative Negative GLUCOSE UA (BEAKER) (test jjuy=474) >1000 mg/dL Negative KETONES UA (BEAKER) (test jzyh=852) Negative Negative BILIRUBIN UA (BEAKER) (test bfns=612) Negative Negative BLOOD UA (BEAKER) (test ozty=044) Negative Negative NITRITE UA (BEAKER) (test nzns=772) Negative Negative LEUKOCYTE ESTERASE UA (BEAKER) (test Negative Negative zzns=381) UROBILINOGEN UA (BEAKER) (test nhre=283) 0.2 mg/dL 0.2-1.0 RBC UA (BEAKER) (test cybz=036) 0 /HPF WBC UA (BEAKER) (test gdxq=878) < /HPF BACTERIA (BEAKER) (test btlg=458) Rare SQUAMOUS EPITHELIAL (BEAKER) (test 1 /HPF xwic=502) SOURCE(BEAKER) (test owbe=8000) Urine, Clean Catch SCREEN, [id number] 20:32:00 Test Item Value Reference Range Comments TEST URINE (BEAKER) (test uvuf=099) Negative POCT-GLUCOSE [id number] 20:10:00 Test Item Value Reference Range Comments POC-GLUCOSE METER (BEAKER) 348 mg/dL 70-110 TESTED AT [facility] [address] [facility] (test weik=5737) [facility] [address] BASIC METABOLIC [id number] 19:39:00 Test Item Value Reference Range Comments SODIUM (BEAKER) (test 132 meq/L 136-145 oxfa=354) POTASSIUM (BEAKER) (test 3.9 meq/L 3.5-5.1 bzao=176) CHLORIDE (BEAKER) (test 100 meq/L 98-107 bmuh=958) CO2 (BEAKER) (test 17 meq/L 22-29 qgev=146) BLOOD UREA NITROGEN 13 mg/dL 7-21 (BEAKER) (test pbeb=627) CREATININE (BEAKER) (test 1.00 mg/dL 0.57-1.25 dbzb=489) GLUCOSE RANDOM (BEAKER) 524 mg/dL 70-105 (test xqid=183) CALCIUM (BEAKER) (test 8.8 mg/dL 8.4-10.2 hstl=763) EGFR (BEAKER) (test mL/min/1.73 sq m INSUFFICIENT CLINICAL DATA qolt=5809) TO CALCULATE ESTIMATED GFR. CBC W/PLT COUNT & AUTO [id number] 19:08:00 Test Item Value Reference Range Comments WHITE BLOOD CELL COUNT (BEAKER) (test mgaj=217) 10.0 K/ L 4.0-10.0 RED BLOOD CELL COUNT (BEAKER) (test wsii=840) 4.59 M/ L 4.00-5.00 HEMOGLOBIN (BEAKER) (test axqr=423) 15.0 GM/DL 12.0-15.0 HEMATOCRIT (BEAKER) (test tyne=866) 43.3 % 36.0-45.0 MEAN CORPUSCULAR VOLUME (BEAKER) (test jrgo=359) 94.3 fL 82.0-99.0 MEAN CORPUSCULAR HEMOGLOBIN (BEAKER) (test 32.6 pg 27.0-33.0 lmza=272) MEAN CORPUSCULAR HEMOGLOBIN CONC (BEAKER) (test 34.5 GM/DL 32.0-36.0 ztfb=427) RED CELL DISTRIBUTION WIDTH (BEAKER) (test 12.8 % 10.3-14.2 xrtr=166) PLATELET COUNT (BEAKER) (test lgod=013) 238 K/CU MM 150-430 MEAN PLATELET VOLUME (BEAKER) (test akaf=099) 7.3 fL 6.5-10.5 NUCLEATED RED BLOOD CELLS (BEAKER) (test 0 /100 WBC 0-0 ppfd=636) NEUTROPHILS RELATIVE PERCENT (BEAKER) (test 63 % xkyr=866) LYMPHOCYTES RELATIVE PERCENT (BEAKER) (test 33 % raon=403) MONOCYTES RELATIVE PERCENT (BEAKER) (test 3 % ynnt=443) EOSINOPHILS RELATIVE PERCENT (BEAKER) (test 0 % yimc=327) BASOPHILS RELATIVE PERCENT (BEAKER) (test 1 % xiez=540) NEUTROPHILS ABSOLUTE COUNT (BEAKER) (test 6.30 K/ L 1.80-8.00 jxlz=524) LYMPHOCYTES ABSOLUTE COUNT (BEAKER) (test 3.24 K/ L 1.48-4.50 wzgs=655) MONOCYTES ABSOLUTE COUNT (BEAKER) (test 0.27 K/ L 0.00-1.30 pmnq=553) EOSINOPHILS ABSOLUTE COUNT (BEAKER) (test 0.05 K/ L 0.00-0.50 luwv=455) BASOPHILS ABSOLUTE COUNT (BEAKER) (test 0.09 K/ L 0.00-0.20 vzqf=161) 0.00POCT-GLUCOSE [id number] 18:37:00 Test Item Value Reference Range Comments POC-GLUCOSE METER (BEAKER) 458 mg/dL 70-110 TESTED AT [facility] [address] [facility] (test rmsv=0150) [facility] [address]
--- OUTSIDE RECORDS SUMMARY | 2019-02-18 00:33 | XMS REPORT | CCD ---
:1990 Author Organization [facility] Care Team Providers Name Role Phone Johanna Gutierrez Referring Provider Allergies, Adverse Reactions, Alerts Substance Reaction Status NKDA Active
--- OUTSIDE RECORDS SUMMARY | 2019-02-18 00:33 | XMS REPORT | Continuity of Care Document ---
:1990 Author Organization Interface Problems Problem Status Onset Classification Date Comments Source Date Reported 680.8 STAPH Active [facility] INFECTION 4 Medications Medication Details Route Status Patient Ordering Order Source Instructions Provider Date Insulin, See Active 11/14/19 [facility] Aspart, Human Instructio 18 Group 100 UNT/ML ns, used Injectable in insluin Solution pump with [NovoLog] boluses and basal rate, average units used per day 120 units, # 300 mL, 3 Refill(s), Pharmacy: [id number] Allergies, Adverse Reactions, Alerts Substance Category [...] Medical Group BMI Calculated 24.17 11/13/2017 [facility] Temperature Oral (F) 97.7 F 11/13/2017 [facility] Heart Rate 91 11/13/2017 [facility] Height 152.4 cm 11/13/2017 [facility] Systolic (mm Hg) 139 11/13/2017 [facility] Diastolic (mm Hg) 91 11/13/2017 [facility] Encounters Location Location Encounter Encounter Reason Attending ADM DC Status Source Details Type Number For Provider Date Date Visit Outpatient [id number] 680.8 CARLOS ALBERTO 10/22 Active [facility] INFECTIO t N Outpatient [id number] CARLOS ALBERTO 06/27 Active [facility] [place] Outpatient [id number] CARLOS ALBERTO 11/13 Active [facility] Outpatient [id number] Carlos Alberto 11/13 11/14 Primary Medical Care [facility] Outpatient [id number] CARLOS ALBERTO 12/03 [facility] Ambulatory [id number] Carlos Alberto 12/03 12/03 Primary Pre-Reg [facility] Care [facility] Procedures Procedure Code Date Perfomer Comments Source
[2019-02-18 00:58] LABS: Arterial Blood Carboxyhemoglob 1.3 % (0-1.5); Blood Gas Oxyhemoglobin 96.1 % (94-97); Blood O2 Saturation 98.3 % (92-98.5)
[2019-02-18 01:04] LABS: Absolute Lymphocytes (CBC) 0.8 K/uL (0.7-4.9); Absolute Monocytes 0.5 K/uL (0.1-1.3); Absolute Neutrophil 20.1 K/uL (1.8-8.0); Basophils % 0.2 % (0-1.3); Hematocrit 49.6 % (36.0-45.0); Lymphocytes % 3.7 % (15.3-44.8); Monocytes % 2.5 % (3.3-12.3); RBC Red Blood Cell Count 5.15 M/uL (3.86-4.86)
[2019-02-18] MEDS ORDERED: NA CHLORIDE 0.9% 2,000 ML ONE (01:07)
[2019-02-18 01:17] LABS: Potassium 4.3 mmol/L (3.5-5.1)
--- NOTE | 2019-02-18 01:29 | ER ---
Nurse's Notes [facility] Name: Roseann Rosen Age: 28 yrs Sex: Female : 1990 Arrival Date: 02/18/2019 Time: 00:31 Bed 5 Private MD: Diagnosis: Type 1 diabetes mellitus with ketoacidosis without coma Presentation: 02/18 00:42 Presenting complaint: Patient states: High blood sugars since Friday; States nausea, lp1 vomiting, fatigue, abdominal pain since Friday; States last blood sugar of 390. Transition of care: patient was not received from another setting of care. Onset of symptoms was February 18, 2019. Risk Assessment: Do you want to hurt yourself or someone else? Patient reports no desire to harm self or others. Care prior to arrival: None. 00:42 Method Of Arrival: Wheelchair lp1 00:42 Acuity: DRE 2 lp1 00:47 Initial Sepsis Screen: Does the patient meet any 2 criteria? HR > 90 bpm. Does the lp1 patient have a suspected source of infection? No. Patient's initial sepsis screen is negative. 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 - Social history:: Smoking status: Patient/guardian denies using tobacco. - Ebola Screening: : No symptoms or risks identified at this time. Screenin:45 Fall Risk None identified. aa1 00:47 Abuse screen: Denies threats or abuse. Denies injuries from another. Nutritional lp1 screening: No deficits noted. Tuberculosis screening: No symptoms or risk factors identified. Assessment: 00:45 General: Appears in no apparent distress. uncomfortable, Behavior is calm, cooperative, aa1 appropriate for age. Pain: Complains of pain in abdomen Pain currently is 7 out of 10 on a pain scale. Pain began 2-3 days ago. Neuro: Level of Consciousness is awake, alert, obeys commands, Oriented to person, place, time, situation, Moves all extremities. Speech is normal. Respiratory: Airway is patent Respiratory effort is even, unlabored, Respiratory pattern is regular, symmetrical. GI: Abdomen is non-distended, Abd is soft X 4 quads Reports lower abdominal pain, upper abdominal pain, intolerance of fluids, intolerance of food, nausea, vomiting. : No signs and/or symptoms were reported regarding the genitourinary system. EENT: No signs and/or symptoms were reported regarding the EENT system. Derm: Skin is intact, is healthy with good turgor, Skin is pink, warm \T\ dry. Musculoskeletal: Circulation, motion, and sensation intact. Capillary refill < 3 seconds. 01:50 Reassessment: Patient appears in no apparent distress at this time. Patient and/or aa1 family updated on plan of care and expected duration. Pain level reassessed. Patient is alert, oriented x 3, equal unlabored respirations, skin warm/dry/pink. Pt to be admitted to ICU once unit nurse is ready to receive pt. 03:08 Reassessment: Patient appears in no apparent distress at this time. Patient and/or aa1 family updated on plan of care and expected duration. Pain level reassessed. Patient is alert, oriented x 3, equal unlabored respirations, skin warm/dry/pink. Report given to Louise in ICU. Vital Signs: 00:44 BP 141 / 104; Pulse 124; Resp 20; Temp 98.1(O); Pulse Ox 100% on R/A; Weight 54.43 kg; lp1 Height 5 ft. 3 in. (160.02 cm); Pain 7/10; 01:30 BP 141 / 86; Pulse 107; Resp 20; Pulse Ox 99% on R/A; aa1 02:30 BP 110 / 74; Pulse 111; Resp 18; Pulse Ox 99% on R/A; aa1 03:07 BP 135 / 75; Pulse 102; Resp 20; Temp 98.3; Pulse Ox 100% on R/A; aa1 00:44 Body Mass Index 21.26 (54.43 kg, 160.02 cm) lp1 ED Course: 00:31 Patient arrived in ED. am2 00:33 Bel[facility] Shearer [facility]-C [facility] snw 00:33 Je Clifford MD is Attending Physician. snw 00:44 Triage completed. lp1 00:45 Arm band placed on left wrist. lp1 00:45 Patient has correct armband on for positive identification. Bed in low position. Call aa1 light in reach. Pulse ox on. NIBP on. 00:45 Missed attempt(s): 20 gauge in right antecubital area. Bleeding controlled, band aid aa1 applied, catheter tip intact. 00:49 Janis Kauffman, CARLOS is Primary Nurse. aa1 00:50 Initial lab(s) drawn, by me, sent to lab. Inserted saline lock: 20 gauge in left aa1 antecubital area, using aseptic technique. Blood collected. 01:28 Augusto Gannon MD is Hospitalizing Provider. snw 03:04 No provider procedures requiring assistance completed. Patient admitted, IV remains in aa1 place. Administered Medications: 00:56 Drug: NS 0.9% (30 ml/kg) 30 ml/kg Route: IV; Rate: bolus; Site: left antecubital; aa1 03:06 Follow up: IV Status: Infusion continued upon admission aa1 01:53 Drug: Insulin Drip - (Insulin Regular Human 100 units, NS 0.9% 100 ml) {Co-Signature: aa1 pedro (Elvira Osborne RN).} Route: IV; Rate: calculated rate; Site: left antecubital; 03:06 Follow up: IV Status: Infusion continued upon admission aa1 Point of Care Testing: Blood Glucose: 02:54 Blood Glucose: 324 mg/dL; tl2 Ranges: Outcome: 01:29 Decision to Hospitalize by Provider. snw 03:17 Admitted to ICU accompanied by nurse, accompanied by tech, via stretcher, room 1, on tl2 monitor, with chart, Report called to CARLOS Gil 03:17 Condition: stable 03:17 Instructed on the need for admit. 03:19 Patient left the ED. tl2 Signatures: Janis Kauffman RN RN aa1 Belen Shearer FNP-C FIBROUS PLASTERER-Csnw Gloria Sandy RN RN lp1 Suha Flower RN RN tl2 Saundra Meadows am2 Elvira Osborne RN fc
--- NOTE | 2019-02-18 01:30 | EDPHYS ---
Physician Documentation [facility] Name: Roseann Rosen Age: 28 yrs Sex: Female : 1990 Arrival Date: 02/18/2019 Time: 00:31 Bed 5 Private MD: ED Physician Je Clifford HPI: 02/18 00:59 This 28 yrs old Female presents to ER via Wheelchair with complaints of snw possible dka. 00:59 The patient or guardian reports hyperglycemia, polydipsia, polyphagia, polyuria, that snw was potentially precipitated by no particular event, with the patient's symptoms witnessed by family. Associated signs and symptoms: Pertinent positives: anorexia, nausea, polydipsia, polyphagia, polyuria, vomiting. Current symptoms: In the emergency department the patient's symptoms are unchanged from the initial presentation. The patient has experienced similar episodes in the past, multiple times. one month ago in ED, no PCP, gets insulin from . 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 - Social history:: Smoking status: Patient/guardian denies using tobacco. - Ebola Screening: : No symptoms or risks identified at this time. ROS: 00:58 Eyes: Negative for injury, pain, redness, and discharge, ENT: Negative for injury, snw pain, and discharge, Neck: Negative for injury, pain, and swelling, Cardiovascular: Negative for chest pain, palpitations, and edema, Respiratory: Negative for shortness of breath, cough, wheezing, and pleuritic chest pain. 00:58 Back: Negative for injury and pain, : Negative for injury, bleeding, discharge, and swelling, MS/Extremity: Negative for injury and deformity, Skin: Negative for injury, rash, and discoloration, Neuro: Negative for headache, weakness, numbness, tingling, and seizure. 00:58 Constitutional: Positive for body aches, malaise, poor PO intake. 00:58 Abdomen/GI: Positive for abdominal pain, nausea and vomiting. Exam: 00:56 Head/Face: Normocephalic, atraumatic. Eyes: Pupils equal round and reactive to light, snw extra-ocular motions intact. Lids and lashes normal. Conjunctiva and sclera are non-icteric and not injected. Cornea within normal limits. Periorbital areas with no swelling, redness, or edema. 00:56 Neck: Trachea midline, no thyromegaly or masses palpated, and no cervical lymphadenopathy. Supple, full range of motion without nuchal rigidity, or vertebral point tenderness. No Meningismus. Chest/axilla: Normal chest wall appearance and motion. Nontender with no deformity. No lesions are appreciated. 00:56 Respiratory: Lungs have equal breath sounds bilaterally, clear to auscultation and percussion. No rales, rhonchi or wheezes noted. No increased work of breathing, no retractions or nasal flaring. Abdomen/GI: Soft, non-tender, with normal bowel sounds. No distension or tympany. No guarding or rebound. No evidence of tenderness throughout. Back: No spinal tenderness. No costovertebral tenderness. Full range of motion. Skin: Warm, dry with decreased turgor. Normal color with no rashes, no lesions, and no evidence of cellulitis. MS/ Extremity: Pulses equal, no cyanosis. Neurovascular intact. Full, normal range of motion. Neuro: Awake and alert, GCS 15, oriented to person, place, time, and situation. Cranial nerves II-XII grossly intact. Motor strength 5/5 in all extremities. Sensory grossly intact. Cerebellar exam normal. Normal gait. 00:56 Constitutional: The patient appears awake, frail, listless, pale, uncomfortable. 00:56 ENT: Mouth: Lips: cracked, Oral mucosa: dry, Voice: is normal. 00:56 Cardiovascular: Rate: tachycardic, Rhythm: regular, Pulses: no pulse deficits are appreciated, Heart sounds: normal. Vital Signs: 00:44 BP 141 / 104; Pulse 124; Resp 20; Temp 98.1(O); Pulse Ox 100% on R/A; Weight 54.43 kg; lp1 Height 5 ft. 3 in. (160.02 cm); Pain 7/10; 01:30 BP 141 / 86; Pulse 107; Resp 20; Pulse Ox 99% on R/A; aa1 02:30 BP 110 / 74; Pulse 111; Resp 18; Pulse Ox 99% on R/A; aa1 03:07 BP 135 / 75; Pulse 102; Resp 20; Temp 98.3; Pulse Ox 100% on R/A; aa1 00:44 Body Mass Index 21.26 (54.43 kg, 160.02 cm) lp1 MDM: 00:37 Patient medically screened. snw 01:02 Data reviewed: vital signs, nurses notes. Data interpreted: Pulse oximetry: on room air snw is 100 %. Interpretation: normal. Counseling: I had a detailed discussion with the patient and/or guardian regarding: the historical points, exam findings, and any diagnostic results supporting the discharge/admit diagnosis, the presence of at least one elevated blood pressure reading (>120/80) during this emergency department visit, lab results. 01:22 Response to treatment: There is no appreciated change of the patient's symptoms at this snw time. Physician consultation: Augusto Gannon MD was called at 01:22, was contacted at 01:22, regarding admission, to the ICU. 02/18 00:38 Order name: Blood Culture Adult (2) snw 02/18 00:38 Order name: CBC with Diff; Complete Time: 02:07 snw 02/18 00:38 Order name: Chem 7; Complete Time: 01:19 snw 02/18 00:38 Order name: ABG; Complete Time: 01:11 snw 02/18 01:29 Order name: Urine Culture snw 02/18 01:29 Order name: Urine Microscopic Only snw 02/18 01:29 Order name: Urine Test (obtain specimen); Complete Time: 03:03 snw 02/18 01:29 Order name: Urine Dipstick-Ancillary (obtain specimen); Complete Time: 03:03 snw 02/18 01:56 Order name: Manual Differential; Complete Time: 02:07 EDMS 02/18 02:56 Order name: Glucose, Ancillary Testing; Complete Time: 02:59 EDOR 02/18 03:08 Order name: Urine Dipstick--Ancillary (enter results) mw2 02/18 03:08 Order name: Urine --Ancillary (enter results) mw2 Administered Medications: 00:56 Drug: NS 0.9% (30 ml/kg) 30 ml/kg Route: IV; Rate: bolus; Site: left antecubital; aa1 03:06 Follow up: IV Status: Infusion continued upon admission aa1 01:53 Drug: Insulin Drip - (Insulin Regular Human 100 units, NS 0.9% 100 ml) {Co-Signature: aa1 fc (Elvira Osborne RN).} Route: IV; Rate: calculated rate; Site: left antecubital; 03:06 Follow up: IV Status: Infusion continued upon admission aa1 Point of Care Testing: Blood Glucose: 02:54 Blood Glucose: 324 mg/dL; tl2 Ranges: Critical Glucose Levels:Adult <50 mg/dl or >400 mg/dl <40 mg/dl or >180 mg/dl Disposition: 03:47 Co-signature as Attending Physician, Je Clifford MD. rn Disposition: 02/18/19 01:29 Hospitalization ordered by Augusto Gannon for Inpatient Admission. Preliminary diagnosis is Type 1 diabetes mellitus with ketoacidosis without coma. - Bed requested for Intensive Care Unit. - Status is Inpatient Admission. tl2 - Condition is Stable. - Problem is an acute exacerbation. - Symptoms are unchanged. UTI on Admission? No Signatures: Dispatcher [employer] [facility] Janis Kauffman RN RN aa1 Belen Shearer, DENTAL LABORATORY TECHNOLOGY TEACHER-C DENTAL LABORATORY TECHNOLOGY TEACHER-Csnw Je Clifford MD MD rn Pena, Laura, RN RN lp1 Dari Sánchez RN RN cg Suha Flower RN RN tl2 Elvira Osborne RN Corrections: (The following items were deleted from the chart) 01:44 01:29 Hospitalization Ordered by Augusto Gannon MD for Inpatient Admission. Preliminary cg diagnosis is Type 1 diabetes mellitus with ketoacidosis without coma. Bed requested for Intensive Care Unit. Status is Inpatient Admission. Condition is Stable. Problem is an acute exacerbation. Symptoms are unchanged. UTI on Admission? No. snw 03:19 01:44 02/18/2019 01:29 Hospitalization Ordered by Augusto Gannon MD for Inpatient tl2 Admission. Preliminary diagnosis is Type 1 diabetes mellitus with ketoacidosis without coma. Bed requested for Intensive Care Unit. Status is Inpatient Admission. Condition is Stable. Problem is an acute exacerbation. Symptoms are unchanged. UTI on Admission? No. cg
--- NOTE | 2019-02-18 01:36 | P.HP ---
Certification for Inpatient Patient admitted to: Inpatient With expected LOS: >2 Midnights Practitioner: I am a practitioner with admitting privileges, knowledge of patient current condition, hospital course, and medical plan of care. Services: Services provided to patient in accordance with Admission requirements found in Title 42 Section 412.3 of the Code of Federal Regulations Patient History Date of Service: 02/18/19 Reason for admission: DKA History of Present Illness: Ms Rosen is a 28 years old woman with history of DM 1, who start 3 days ago with nausea, vomiting and diffuse abdominal pain. The patient denied diarrhea, fever and chills. She has had this symptoms in the past. She has not been applied her insulin in the last couple of days because she felt sick. Lab work remarkable for leukocytosis, hyperglycemia, low bicarbonate, anion GAP 22, consistent with DKA. UA still pending. She denied chest pain or SOB. Allergies No Known Allergies Allergy (Verified 01/31/18 05:55) Home medications list reviewed: Yes Home Medications: Insulin -Regular Human [Novolin -R*] See Protocol SQ ACHS 01/17/19 Insulin Glargine Human [Lantus*] 15 units SQ BEDTIME #1 vial 01/22/19 Metoclopramide HCl [Reglan] 5 mg PO Q6H #12 tablet 01/22/19 Pantoprazole Sodium [Protonix] 40 mg PO DAILY #30 tablet. 01/22/19 metroNIDAZOLE [Flagyl*] 500 mg PO BID #9 tablet 01/22/19 - Past Medical/Surgical History Diabetic: Yes -: Diabetes Type 1 -: Bone Spurr -: L wrist bone spurr -: L shouder bone spurr -: [place] teeth - Family History Family History: Reviewed- Non-Contributory - Social History Smoking Status: Never smoker Alcohol use: Yes CD- Drugs: Yes Caffeine use: Yes Place of Residence: Home Review of Systems 10-point ROS is otherwise unremarkable Physical Examination - Physical Exam General: Alert, Mild distress HEENT: Atraumatic, PERRLA, Mucous membr. moist/pink, EOMI, Sclerae nonicteric Neck: Supple, 2+ carotid pulse no bruit, No LAD, Without JVD or thyroid abnormality Respiratory: Clear to auscultation bilaterally, Normal air movement Cardiovascular: Regular rate/rhythm, Normal S1 S2 Gastrointestinal: Normal bowel sounds, No tenderness Musculoskeletal: No tenderness Integumentary: No rashes Neurological: Normal speech, Normal strength at 5/5 x4 extr, Normal tone, Normal affect Lymphatics: No axilla or inguinal lymphadenopathy - Studies Laboratory Data (last 24 hrs) 02/18/19 00:50: Sodium 134 L, Potassium 4.3, BUN 21 H, Creatinine 1.11, Glucose 460 H* 02/18/19 00:50: WBC 21.5 H*, Hgb 16.6 H, Hct 49.6 H, Plt Count 348 Assessment and Plan - Problems (Diagnosis) (1) Diabetic ketoacidosis Current Visit: No Status: Acute Qualifiers: Diabetes mellitus type: type 1 Diabetes mellitus complication detail: without coma Qualified Code(s): E10.10 - Type 1 diabetes mellitus with ketoacidosis without coma (2) Nausea & vomiting Current Visit: No Status: Acute Qualifiers: Vomiting type: unspecified Vomiting Intractability: non-intractable Qualified Code(s): R11.2 - Nausea with vomiting, unspecified (3) Diabetes mellitus Current Visit: No Status: Chronic Qualifiers: Diabetes mellitus type: type 1 Diabetes mellitus complication status: with ketoacidosis Diabetes mellitus complication detail: without coma Qualified Code(s): E10.10 - Type 1 diabetes mellitus with ketoacidosis without coma - Plan The patient will be admitted to ICU due to DKA. Will start IV fluid replacement and continue insulin infusion per DKA protocol. Awaiting UA. - Advance Directives Does patient have a Living Will: No Does patient have a Durable POA for Healthcare: No - Code Status/Comfort Care Code Status Assessed: Yes Code Status: Full Code
[2019-02-18 01:54] LABS: Blood Morphology Comment NOT SEEN (NOT SEEN); Platelet Estimate ADEQ
[2019-02-18] MEDS ORDERED: INSULIN -REGULAR HUMAN 50 UNIT/0.5 ML ML ONE (02:04)
[2019-02-18] MEDS ORDERED: NA CHLORIDE 0.9% 100 ML IV ONE (02:04)
[2019-02-18 03:22] LABS: Urine Blood NEGATIVE (NEG); Urine Glucose 2+ (NEG); Urine Protein TRACE (NEG); Urine Specific Gravity 1.025 (1.005-1.030); Urine pH 5.5 (5.0-7.0)
[2019-02-18 03:23] LABS: Urine Bacteria <20 /HPF (<20); Urine Culture Reflex Order NOT NEEDED; Urine RBC NONE SEEN /HPF (NONE SEEN)
[2019-02-18] MEDS ORDERED: INSULIN -REGULAR HUMAN 100 UNIT in NA CHLORIDE 0.9% 100 ML IV SCH (03:28)
[2019-02-18] MEDS ORDERED: NA CHLORIDE 0.9% 1,000 ML IV ONE (03:28)
[2019-02-18] MEDS ORDERED: ONDANSETRON 4 MG/2 ML VIAL ONE (03:46)
[2019-02-18] MEDS: ONDANSETRON 4 MG/2 ML VIAL IV PRN ×3 (03:51→18:50)
[2019-02-18] MEDS: NACHLORIDE 0.45% 1,000 ML IV SCH ×6 (04:10→23:28)
[2019-02-18] MEDS: D5 0.45 NS 1,000 ML IV SCH ×3 (05:12→16:53)
[2019-02-18 05:29] LABS: Potassium 3.5 mmol/L (3.5-5.1)
[2019-02-18] MEDS ORDERED: KCL 20 MEQ/100 mL IVPB 20 MEQ/100 ML BAG IV SCH (06:00)
[2019-02-18] MEDS ORDERED: GLUCAGON 1 MG/VIAL IM PRN (07:12)
[2019-02-18] MEDS ORDERED: INSULIN -REGULAR HUMAN 50 UNIT/0.5 ML ML SQ SCH (07:30)
[2019-02-18] MEDS: METOCLOPRAMIDE 10 MG/2mL INJ IV SCH ×3 (07:38→17:33)
[2019-02-18] MEDS ORDERED: PNEUMOCOCCAL VACCINE 0.5 ML IMVAC ONE (08:00)
[2019-02-18 08:03] LABS: Potassium 3.8 mmol/L (3.5-5.1)
[2019-02-18] MEDS: ENOXAPARIN 40 MG/0.4 ML SQ SCH (08:40)
[2019-02-18] MEDS ORDERED: INSULIN GLARGINE 100 UNITS/ML SQ SCH (09:00)
--- NOTE | 2019-02-18 09:20 | P.PN ---
Subjective Date of Service: 02/18/19 Primary Care Provider: None Chief Complaint: DKA Subjective: Other (Patient still with some nausea vomiting this a.m.. Patient reports not doing well with her current insulin regimen as an outpatient. She has no PCP.) Physical Examination - Vital Signs Temperature: 97.5 F Blood Pressure: 159/80 Pulse: 101 Respirations: 19 Pulse Ox (%): 100 - Physical Exam General: Alert, In no apparent distress, Cooperative HEENT: Atraumatic Neck: Supple Respiratory: Clear to auscultation bilaterally, Normal air movement Cardiovascular: Normal pulses, Regular rate/rhythm Gastrointestinal: Normal bowel sounds, Soft and benign, Non-distended, Tenderness (Minimal pain to the epigastric region) Musculoskeletal: No erythema, No tenderness, No warmth Neurological: Normal speech, Normal strength at 5/5 x4 extr, Normal tone, Normal affect - Studies Laboratory Data (last 24 hrs) 02/18/19 00:50: Sodium 134 L, Potassium 4.3, BUN 21 H, Creatinine 1.11, Glucose 460 H* 02/18/19 00:50: WBC 21.5 H*, Hgb 16.6 H, Hct 49.6 H, Plt Count 348 Medications List Reviewed: Yes Assessment & Plan Discharge Plan: Home Plan to discharge in: 24 Hours Physician Review Additional Text: Impression: Nausea, vomiting secondary to diabetic ketoacidosis with history of diabetes mellitus type 1, insulin-dependent, uncontrolled, with poor follow up History of diabetic gastroparesis GERD Plan: Nausea, vomiting secondary to diabetic ketoacidosis with history of diabetes mellitus type 1, insulin-dependent, uncontrolled, with poor follow up: Patient still with nausea and vomiting this morning. Will continue with insulin drip. Anion gap improved. Continue IV fluids. Will reassess later today. If doing better and able to take oral intake then will transition from insulin drip to her regimen of basal insulin-Lantus. Patient has not establish care with a PCP in the area. Will have social insurance administrator help in this process as she requires PCP to maintain diabetic control and follow up. Patient on DVT prophylaxis- Lovenox. Anticipate discharge in the next 24-48 hr pending clinical improvement. History of diabetic gastroparesis: Continue with Reglan. GERD: Continue with Protonix. Time Spent Managing Pts Care (In Minutes): 55
[2019-02-18] MEDS: PANTOPRAZOLE 40 MG INJ IVP SCH (11:13)
[2019-02-18 12:27] LABS: BUN Blood Urea Nitrogen 16 mg/dL (7-18); Bicarbonate 16 mmol/L (21-32); Glucose Level 215 mg/dL (74-106); Potassium 4.3 mmol/L (3.5-5.1); Sodium Level 139 mmol/L (136-145)
[2019-02-18 15:30] LABS: BUN Blood Urea Nitrogen 16 mg/dL (7-18); Bicarbonate 15 mmol/L (21-32); Glucose Level 176 mg/dL (74-106); Potassium 4.3 mmol/L (3.5-5.1); Sodium Level 139 mmol/L (136-145)
[2019-02-18 19:25] LABS: BUN Blood Urea Nitrogen 15 mg/dL (7-18); Bicarbonate 15 mmol/L (21-32); Glucose Level 169 mg/dL (74-106); Sodium Level 137 mmol/L (136-145)
[2019-02-19] MEDS: METOCLOPRAMIDE 10 MG/2mL INJ IV SCH ×4 (00:29→18:10)
[2019-02-19] MEDS: D5 0.45 NS 1,000 ML IV SCH ×2 (02:14→06:08)
[2019-02-19] MEDS: NACHLORIDE 0.45% 1,000 ML IV SCH (03:28)
[2019-02-19] MEDS: ONDANSETRON 4 MG/2 ML VIAL IV PRN ×3 (04:55→20:26)
[2019-02-19 05:17] LABS: Absolute Lymphocytes (CBC) 1.9 K/uL (0.7-4.9); Absolute Monocytes 0.9 K/uL (0.1-1.3); Absolute Neutrophil 11.2 K/uL (1.8-8.0); Basophils % 0.3 % (0-1.3); Eosinophils % 0.1 % (0-4.4); Hematocrit 35.4 % (36.0-45.0); Lymphocytes % 13.6 % (15.3-44.8); MPV 8.8 fL (7.6-11.3); Monocytes % 6.6 % (3.3-12.3); RBC Red Blood Cell Count 3.81 M/uL (3.86-4.86)
[2019-02-19 05:29] LABS: BUN Blood Urea Nitrogen 9 mg/dL (7-18); Bicarbonate 21 mmol/L (21-32); Glucose Level 181 mg/dL (74-106); Magnesium 1.7 mg/dL (1.8-2.4); Potassium 3.1 mmol/L (3.5-5.1); Sodium Level 138 mmol/L (136-145)
[2019-02-19] MEDS: INSULIN GLARGINE 100 UNITS/ML SQ SCH ×3 (06:27→21:56)
[2019-02-19] MEDS: NA CHLORIDE 0.9% 1,000 ML IV SCH ×2 (06:28→16:38)
[2019-02-19] MEDS: KCL 20 MEQ/100 mL IVPB 20 MEQ/100 ML BAG IV SCH ×2 (06:28→09:10)
[2019-02-19] MEDS ORDERED: MAGNESIUM SULFATE 1 gm IVPB 1 GM/100 ML BAG IV ONE (07:00)
[2019-02-19] MEDS: ENOXAPARIN 40 MG/0.4 ML SQ SCH (08:37)
[2019-02-19] MEDS: PANTOPRAZOLE 40 MG INJ IVP SCH (08:37)
[2019-02-19] MEDS: SODIUM CHLORIDE 0.9% 10ML INJ IV PRN (08:38)
--- NOTE | 2019-02-19 10:01 | P.DS ---
Admission Date: 02/18/19 Discharge Date: 02/19/19 Primary Care Provider: None Disposition: ROUTINE DISCHARGE Discharge Condition: GOOD Reason for Admission: DKA Consultations: none Procedures: Medical Problem List: Nausea, vomiting secondary to diabetic ketoacidosis with history of diabetes mellitus type 1, insulin-dependent, uncontrolled, with poor follow up History of diabetic gastroparesis GERD Brief History of Present Illness: 28-year-old female presented with nausea, vomiting. Patient with history of type 1 diabetes. Patient found to have DKA. Patient was admitted for treatment. Hospital Course: Patient presented with nausea, vomiting secondary to diabetic ketoacidosis. Patient with history of type 1 diabetes insulin dependent. Patient was admitted for treatment. Patient received IV fluids along with insulin IV. Her condition improved. Anion gap closed. Patient was transition to her basal insulin. At discharge patient without any significant nausea, vomiting. Patient had reported recent change in her fast acting insulin which may have caused her blood sugars to be out of control. At discharge she will continue with Lantus 15 units subcu daily. Patient will also be given NovoLog short- acting insulin with mild sliding scale. Instructions for sliding scale will be provided. Patient is to monitor her blood sugars at least twice daily. Recommend to maintain blood sugars less than 140 fasting and less than 200 after meals. Patient may need to increase the Lantus 1-2 units daily if blood sugar not well controlled. Recommend to follow up with a PCP to establish care and continue diabetic control. Social work will provide help. Diabetic education provided. Patient with history of diabetic gastroparesis. Patient will continue with the Reglan 5 mg 1 pill 3 times a day as needed for nausea. Recommend GI evaluation as an outpatient if this persists. Strict diabetic control will help with this. Patient with GERD. At discharge she will continue with Protonix 40 mg daily. GERD diet will be provided. Vital Signs/Physical Exam: Temp Pulse Resp BP Pulse Ox 98.2 F 80 16 117/68 100 02/19/19 08:00 02/19/19 09:00 02/19/19 09:00 02/19/19 09:00 02/19/19 09:00 General: Alert, In no apparent distress, Oriented x3, Cooperative HEENT: Atraumatic Neck: Supple Respiratory: Clear to auscultation bilaterally, Normal air movement Cardiovascular: Normal pulses, Regular rate/rhythm Gastrointestinal: Normal bowel sounds, Soft and benign, Non-distended, No tenderness, No masses, No rebound, No guarding Musculoskeletal: No erythema, No tenderness, No warmth Integumentary: No tenderness/swelling, No erythema, No warmth, No cyanosis Neurological: Normal speech, Normal strength at 5/5 x4 extr, Normal tone Laboratory Data at Discharge: WBC 14.1 K/uL (4.3-10.9) H D 02/19/19 04:41 Hgb 12.0 g/dL (12.0-15.0) D 02/19/19 04:41 Hct 35.4 % (36.0-45.0) L D 02/19/19 04:41 Plt Count 252 K/uL (152-406) D 02/19/19 04:41 Sodium 138 mmol/L (136-145) 02/19/19 04:41 Potassium 3.1 mmol/L (3.5-5.1) L 02/19/19 04:41 BUN 9 mg/dL (7-18) 02/19/19 04:41 Creatinine 0.64 mg/dL (0.55-1.3) 02/19/19 04:41 Glucose 181 mg/dL (74-106) H 02/19/19 04:41 Magnesium 1.7 mg/dL (1.8-2.4) L 02/19/19 04:41 Home Medications: Insulin Aspart [Novolog] See Protocol SQ SEECOM #1 vial 02/19/19 Insulin Glargine Human [Lantus*] 15 units SQ BEDTIME #1 vial 02/19/19 Metoclopramide HCl [Reglan] 5 mg PO TID PRN #15 tablet 02/19/19 Pantoprazole Sodium [Protonix] 40 mg PO DAILY #30 tablet. 02/19/19 New Medications: Insulin Aspart [Novolog] See Protocol SQ SEECOM #1 vial Insulin Glargine Human [Lantus*] 15 units SQ BEDTIME #1 vial Metoclopramide HCl [Reglan] 5 mg PO TID PRN #15 tablet PRN Reason: Nausea / Vomiting Pantoprazole Sodium [Protonix] 40 mg PO DAILY #30 tablet. Patient Discharge Instructions: 1. Recommend follow up with PCP to establish care and to follow up this hospitalization. 2. Patient presented with nausea, vomiting secondary to diabetic ketoacidosis. Patient with history of type 1 diabetes insulin dependent. Patient was admitted for treatment. Patient received IV fluids along with insulin IV. Her condition improved. Anion gap closed. Patient was transition to her basal insulin. At discharge patient without any significant nausea, vomiting. Patient had reported recent change in her fast acting insulin which may have caused her blood sugars to be out of control. At discharge she will continue with Lantus 15 units subcu daily. Patient will also be given NovoLog short-acting insulin with mild sliding scale. Instructions for sliding scale will be provided. Patient is to monitor her blood sugars at least twice daily. Recommend to maintain blood sugars less than 140 fasting and less than 200 after meals. Patient may need to increase the Lantus 1-2 units daily if blood sugar not well controlled. Recommend to follow up with a PCP to establish care and continue diabetic control. Social work will provide help. Diabetic education provided. 3. Patient with history of diabetic gastroparesis. Patient will continue with the Reglan 5 mg 1 pill 3 times a day as needed for nausea. Recommend GI evaluation as an outpatient if this persists. Strict diabetic control will help with this. 4. Patient with GERD. At discharge she will continue with Protonix 40 mg daily. GERD diet will be provided. Diet: AHA Activity: Ad carlos Time spent managing pt's care (in minutes): 55
[2019-02-19] MEDS ORDERED: ONDANSETRON 4 MG/2 ML VIAL IV ONE (15:13)
[2019-02-19] MEDS ORDERED: GLUCAGON 1 MG/VIAL IM PRN (15:23)
[2019-02-19] MEDS ORDERED: D50W 25 GM/50 ML SYRINGE IV PRN (15:23)
[2019-02-19] MEDS ORDERED: INSULIN -REGULAR HUMAN 50 UNIT/0.5 ML ML SQ SCH (16:30)
[2019-02-19 17:14] LABS: BUN Blood Urea Nitrogen 8 mg/dL (7-18); Bicarbonate 17 mmol/L (21-32); Glucose Level 297 mg/dL (74-106); Potassium 4.1 mmol/L (3.5-5.1); Sodium Level 135 mmol/L (136-145)
[2019-02-19] MEDS: INSULIN -REGULAR HUMAN 50 UNIT/0.5 ML ML SQ SCH ×2 (18:08→21:00)
[2019-02-20] MEDS: NA CHLORIDE 0.9% 1,000 ML IV SCH ×3 (03:35→22:49)
[2019-02-20 05:22] LABS: Absolute Lymphocytes (CBC) 2.4 K/uL (0.7-4.9); Absolute Monocytes 0.5 K/uL (0.1-1.3); Absolute Neutrophil 5.3 K/uL (1.8-8.0); Basophils % 0.7 % (0-1.3); Eosinophils % 0.4 % (0-4.4); Hematocrit 35.7 % (36.0-45.0); Lymphocytes % 29.1 % (15.3-44.8); MPV 9.4 fL (7.6-11.3); Monocytes % 6.5 % (3.3-12.3); RBC Red Blood Cell Count 3.84 M/uL (3.86-4.86)
[2019-02-20 05:40] LABS: BUN Blood Urea Nitrogen 8 mg/dL (7-18); Bicarbonate 17 mmol/L (21-32); Glucose Level 201 mg/dL (74-106); Magnesium 1.8 mg/dL (1.8-2.4); Potassium 3.9 mmol/L (3.5-5.1); Sodium Level 138 mmol/L (136-145)
[2019-02-20] MEDS: METOCLOPRAMIDE 10 MG/2mL INJ IV SCH ×4 (05:41→17:30)
[2019-02-20 05:46] VITALS: BMI 20.8
[2019-02-20] MEDS ORDERED: MAGNESIUM SULFATE 1 gm IVPB 1 GM/100 ML BAG IV ONE (06:15)
[2019-02-20] MEDS ORDERED: KCL 20 MEQ/100 mL IVPB 20 MEQ/100 ML BAG IV SCH (07:00)
[2019-02-20] MEDS: ONDANSETRON 4 MG/2 ML VIAL IV PRN ×2 (08:28→17:54)
[2019-02-20] MEDS: INSULIN GLARGINE 100 UNITS/ML SQ SCH ×2 (08:28→21:00)
[2019-02-20] MEDS: INSULIN -REGULAR HUMAN 50 UNIT/0.5 ML ML SQ SCH ×4 (08:29→21:00)
[2019-02-20] MEDS: ENOXAPARIN 40 MG/0.4 ML SQ SCH (08:29)
[2019-02-20] MEDS: SODIUM CHLORIDE 0.9% 10ML INJ IV PRN (08:29)
[2019-02-20] MEDS: PANTOPRAZOLE 40 MG INJ IVP SCH (08:29)
[2019-02-20] MEDS ORDERED: POTASSIUM CL SA 10 MEQ TAB PO ONE ×2 (09:40→21:00)
[2019-02-20] MEDS: DOCUSATE NA 100 MG CAP PO SCH ×2 (15:13→21:00)
--- NOTE | 2019-02-20 15:24 | P.PN ---
Subjective Date of Service: 02/20/19 Primary Care Provider: None Chief Complaint: DKA pt still having N/V and not tolerating food pt noted to have constipation since Friday ,colace added and abdominal x-ray ordered to r/o bowel obstruction discharge plannig pending clinical improvement Review of Systems 10-point ROS is otherwise unremarkable Physical Examination - Vital Signs Temperature: 98.3 F Blood Pressure: 130/75 Pulse: 100 Respirations: 12 Pulse Ox (%): 100 - Physical Exam General: Alert, In no apparent distress, Oriented x3 HEENT: Atraumatic, Normocephalic, PERRLA Neck: Supple Respiratory: Clear to auscultation bilaterally, Normal air movement Cardiovascular: No edema, Regular rate/rhythm, Normal S1 S2 Gastrointestinal: Normal bowel sounds, Soft and benign, Non-distended Musculoskeletal: No clubbing, No swelling, No erythema Neurological: Normal speech, Normal strength at 5/5 x4 extr - Studies Medications List Reviewed: Yes Assessment And Plan - Plan Impression: Nausea, vomiting secondary to diabetic ketoacidosis with history of diabetes mellitus type 1, insulin-dependent, uncontrolled, with poor follow up History of diabetic gastroparesis Assessment: DKA insulin dependent type 1 DM GERD plan: pt was admitted to ICU for insulin drip ,gap closed and pt was bridged with sc insulin and started diet pt continued to have N/V continue lantus and sliding scale reglan prn nasuea IVF hydration colace GI,DVT ppx
--- NOTE | 2019-02-20 16:16 | RAD REPORT ---
EXAM DESCRIPTION: RAD - Abdomen Single View - 02/20/2019 3:25 pm CLINICAL HISTORY: r/o obstruction Pain COMPARISON: Abdomen Pelvis W Contrast dated 01/20/2019; Abdomen Pelvis Wo Contrast dated 8; Abdomen W Erect dated 01/20/2019 FINDINGS: The bowel gas pattern is non-obstructive. No evidence of free air or pneumatosis. No suspi cious calcifications. Bilateral iliac wing osteochondromas present. IMPRESSION: No acute finding demonstrated.
[2019-02-20 16:28] LABS: Absolute Lymphocytes (CBC) 3.2 K/uL (0.7-4.9); Absolute Monocytes 0.5 K/uL (0.1-1.3); Absolute Neutrophil 3.8 K/uL (1.8-8.0); Basophils % 1.2 % (0-1.3); Eosinophils % 0.2 % (0-4.4); Hematocrit 38.6 % (36.0-45.0); Lymphocytes % 42.1 % (15.3-44.8); MPV 8.6 fL (7.6-11.3); Monocytes % 6.6 % (3.3-12.3); RBC Red Blood Cell Count 4.22 M/uL (3.86-4.86)
[2019-02-20 16:35] LABS: BUN Blood Urea Nitrogen 6 mg/dL (7-18); Bicarbonate 24 mmol/L (21-32); Glucose Level 72 mg/dL (74-106); Potassium 3.2 mmol/L (3.5-5.1); Sodium Level 142 mmol/L (136-145)
[2019-02-20 18:55] LABS: Barbiturates NEGATIVE (NEGATIVE); Benzodiazepines NEGATIVE (NEGATIVE); Cocaine NEGATIVE (NEGATIVE); METHAMPHETAM NEGATIVE (NEGATIVE); Methadone NEGATIVE (NEGATIVE); Opiates NEGATIVE (NEGATIVE); Phencyclidine NEGATIVE (NEGATIVE); THC Cannibis NEGATIVE (NEGATIVE)
[2019-02-20] MEDS: D50W 25 GM/50 ML SYRINGE IV PRN (19:58)
[2019-02-20] MEDS: KCL 20 MEQ/100 mL IVPB 20 MEQ/100 ML BAG IV SCH ×2 (20:44→22:49)
[2019-02-21] MEDS: METOCLOPRAMIDE 10 MG/2mL INJ IV SCH ×4 (01:01→17:17)
[2019-02-21] MEDS: D50W 25 GM/50 ML SYRINGE IV PRN (04:09)
[2019-02-21 06:17] LABS: BUN Blood Urea Nitrogen 5 mg/dL (7-18); Bicarbonate 24 mmol/L (21-32); Glucose Level 107 mg/dL (74-106); Magnesium 1.9 mg/dL (1.8-2.4); Potassium 3.5 mmol/L (3.5-5.1); Sodium Level 142 mmol/L (136-145)
[2019-02-21] MEDS: INSULIN -REGULAR HUMAN 50 UNIT/0.5 ML ML SQ SCH ×3 (07:30→16:31)
[2019-02-21 07:35] LABS: Absolute Lymphocytes (CBC) 2.3 K/uL (0.7-4.9); Absolute Monocytes 0.5 K/uL (0.1-1.3); Absolute Neutrophil 4.7 K/uL (1.8-8.0); Basophils % 0.8 % (0-1.3); Eosinophils % 0.1 % (0-4.4); Hematocrit 35.7 % (36.0-45.0); Lymphocytes % 30.4 % (15.3-44.8); MPV 8.6 fL (7.6-11.3); Monocytes % 6.1 % (3.3-12.3); RBC Red Blood Cell Count 3.91 M/uL (3.86-4.86)
[2019-02-21] MEDS: ENOXAPARIN 40 MG/0.4 ML SQ SCH (09:00)
[2019-02-21] MEDS: NA CHLORIDE 0.9% 1,000 ML IV SCH (09:56)
[2019-02-21] MEDS: INSULIN GLARGINE 100 UNITS/ML SQ SCH ×2 (09:58→20:37)
[2019-02-21] MEDS: DOCUSATE NA 100 MG CAP PO SCH (10:05)
[2019-02-21] MEDS: PANTOPRAZOLE 40 MG INJ IVP SCH (10:10)
[2019-02-21] MEDS: ONDANSETRON 4 MG/2 ML VIAL IV PRN (10:12)
[2019-02-21] MEDS ORDERED: LACTULOSE 20 GM/30 ML UCUP PO ONE (11:00)
[2019-02-21 11:03] VITALS: O2SAT 98
[2019-02-21] MEDS ORDERED: POTASSIUM CL SA 10 MEQ TAB PO ONE (12:00)
--- NOTE | 2019-02-21 12:21 | P.PN ---
Subjective Date of Service: 02/21/19 Primary Care Provider: None Chief Complaint: DKA pt still having N/V and not tolerating food constipation ,no BM since Friday ,abdomen x-ray no obstruction colace,lactulose added Review of Systems 10-point ROS is otherwise unremarkable Physical Examination - Vital Signs Temperature: 98.4 F Blood Pressure: 133/80 Pulse: 82 Respirations: 16 Pulse Ox (%): 98 - Physical Exam General: Alert, In no apparent distress, Oriented x3 HEENT: Atraumatic, Normocephalic, PERRLA Respiratory: Clear to auscultation bilaterally Cardiovascular: No edema, Regular rate/rhythm, Normal S1 S2 Gastrointestinal: Normal bowel sounds, Soft and benign, Non-distended Musculoskeletal: No clubbing, No swelling, No erythema Integumentary: No rashes Neurological: Normal speech, Normal strength at 5/5 x4 extr - Studies Medications List Reviewed: Yes Assessment And Plan - Plan Impression: Nausea, vomiting secondary to diabetic ketoacidosis with history of diabetes mellitus type 1, insulin-dependent, uncontrolled, with poor follow up History of diabetic gastroparesis Assessment: DKA insulin dependent type 1 DM GERD plan: pt was admitted to ICU for insulin drip ,gap closed and pt was bridged with sc insulin and started diet pt continued to have N/V continue lantus and sliding scale reglan prn nasuea IVF hydration colace GI,DVT ppx
--- NOTE | 2019-02-21 13:24 | RAD REPORT ---
EXAM DESCRIPTION: CT - Abdomen Pelvis Wo Contrast - 02/21/2019 12:53 pm CLINICAL HISTORY: Abdominal pain and vomiting COMPARISON: January 20, [address] 2016 TECHNIQUE: Computed axial tomography of the abdomen and pelvis was obtained. IV and oral contrast we re not requested. All CT scans are performed using dose optimization technique as appropriate and may include automated exposure control or mA/KV adjustment according to patient size. FINDINGS: The evaluation of solid organs, vessels and bowel is limited secondary to the lack of con trast administration. The liver, spleen, pancreas, adrenals and kidneys appear grossly normal. 12 millimeter tablet is present within the jejunum. There is no evidence of diverticulitis. An osteochondroma extends off of the lateral aspect of the right ilium. It measures 4.3 centimeters. Previously it measured 3.2 centimeters in 2016. The cartilage cap has also increased in size Osteochondroma extending off of the left ilium is unchanged 26 millimeter right ovarian cyst without significant free fluid IMPRESSION: 26 millimeter right ovarian cyst without significant free fluid Enlargement of an osteochondroma extending off of the right ilium. The cartilage cap has also increased in size. This may indicate malignant degeneration.
[2019-02-21 14:20] LABS: Absolute Lymphocytes (CBC) 2.3 K/uL (0.7-4.9); Absolute Monocytes 0.4 K/uL (0.1-1.3); Absolute Neutrophil 5.2 K/uL (1.8-8.0); Basophils % 0.9 % (0-1.3); Eosinophils % 0.2 % (0-4.4); Hematocrit 35.4 % (36.0-45.0); Lymphocytes % 29.1 % (15.3-44.8); MPV 9.7 fL (7.6-11.3); Monocytes % 4.5 % (3.3-12.3); RBC Red Blood Cell Count 3.85 M/uL (3.86-4.86)
[2019-02-21 14:33] LABS: BUN Blood Urea Nitrogen 6 mg/dL (7-18); Bicarbonate 21 mmol/L (21-32); Glucose Level 211 mg/dL (74-106); Potassium 4.3 mmol/L (3.5-5.1); Sodium Level 139 mmol/L (136-145)
[2019-02-21 16:41] LABS: Absolute Lymphocytes (CBC) 3.7 K/uL (0.7-4.9); Absolute Monocytes 0.5 K/uL (0.1-1.3); Absolute Neutrophil 6.1 K/uL (1.8-8.0); Basophils % 1.1 % (0-1.3); Eosinophils % 0.6 % (0-4.4); Hematocrit 39.6 % (36.0-45.0); Lymphocytes % 35.4 % (15.3-44.8); MPV 9.1 fL (7.6-11.3); Monocytes % 4.9 % (3.3-12.3); RBC Red Blood Cell Count 4.26 M/uL (3.86-4.86)
[2019-02-21 17:01] LABS: Blood Morphology Comment NOT SEEN (NOT SEEN); Platelet Estimate ADEQ; Urine White Blood Cell Casts OK
[2019-02-21 19:54] VITALS: BP 115/73; TEMP 98
== END 2019-02-21 20:40 | disposition home or self-care (01) | DRG 639 ==
LOC: ER 00:30 → ERHOLD 01:43 → 3RD-ICU 03:06 → 2ND 02-20 15:30
PROVIDERS: ADMIT Internal Medicine; ATTEND Internal Medicine
DX: E10.10 Type 1 diabetes mellitus with ketoacidosis without coma (principal); K21.9 Gastro-esophageal reflux disease without esophagitis; R11.2 Nausea with vomiting, unspecified
CPT/HCPCS: 36415; 74018; 74176; 80048; 80307; 81003; 81015; 81025; 82805; 82962; 83735; 85025; 87040; 87086; 87088; 96365; 97162; 99285; C9113; J1650; J2405; J2765; J3475; J7030

== ENCOUNTER 2019-12-03 07:14 | Inpatient (IN) | payer BC, SELFPAY ==
--- OUTSIDE RECORDS SUMMARY | 2019-12-03 07:16 | XMS REPORT ---
:1990 [facility] Address [address] [place] [address] Dr. Love [address] [place] [id number] Care Team Providers Name Role Phone RIKY [...] Reference Range Comments KETONES, BLOOD (BEAKER) (test tcyq=7359) 0.4 mmol/L <0.4 BASIC METABOLIC [id number] 21:43:00 Test Item Value Reference Range Comments SODIUM (BEAKER) (test 141 meq/L 136-145 rjub=791) POTASSIUM (BEAKER) (test 2.9 meq/L 3.5-5.1 yulu=225) CHLORIDE (BEAKER) (test 115 meq/L 98-107 nfnk=411) CO2 (BEAKER) (test 15 meq/L 22-29 xspc=183) BLOOD UREA NITROGEN 10 mg/dL 7-21 (BEAKER) (test cqui=962) CREATININE (BEAKER) (test 0.70 mg/dL 0.57-1.25 ccty=607) GLUCOSE RANDOM (BEAKER) 200 mg/dL 70-105 (test xbym=725) CALCIUM (BEAKER) (test 7.1 mg/dL 8.4-10.2 vmol=706) EGFR (BEAKER) (test 103 mL/min/1.73 sq m ESTIMATED GFR IS NOT jaru=7358) ACCURATE CREATININE CLEARANCE IN PREDICTING GLOMERULAR FILTRATION RATE. ESTIMATED GFR IS NOT APPLICABLE FOR DIALYSIS PATIENTS. URINALYSIS W/ [id number] 20:41:00 Test Item Value Reference Range Comments COLOR (BEAKER) (test qrbz=786) Light Yellow CLARITY (BEAKER) (test ywls=558) Clear SPECIFIC GRAVITY UA (BEAKER) (test 1.015 1.001-1.035 fowf=712) PH UA (BEAKER) (test ihgj=024) 5.0 5.0-8.0 PROTEIN UA (BEAKER) (test irya=598) Negative Negative GLUCOSE UA (BEAKER) (test bjfb=703) >1000 mg/dL Negative KETONES UA (BEAKER) (test cbgo=980) Negative Negative BILIRUBIN UA (BEAKER) (test jlsa=297) Negative Negative BLOOD UA (BEAKER) (test ueyg=530) Negative Negative NITRITE UA (BEAKER) (test hmyu=039) Negative Negative LEUKOCYTE ESTERASE UA (BEAKER) (test Negative Negative uxqu=014) UROBILINOGEN UA (BEAKER) (test qxqe=273) 0.2 mg/dL 0.2-1.0 RBC UA (BEAKER) (test kzyb=318) 0 /HPF WBC UA (BEAKER) (test cxbz=920) < /HPF BACTERIA (BEAKER) (test pmpk=802) Rare SQUAMOUS EPITHELIAL (BEAKER) (test 1 /HPF yahr=962) SOURCE(BEAKER) (test lfgz=5783) Urine, Clean Catch SCREEN, [id number] 20:32:00 Test Item Value Reference Range Comments TEST URINE (BEAKER) (test gkke=013) Negative POCT-GLUCOSE [id number] 20:10:00 Test Item Value Reference Range Comments POC-GLUCOSE METER (BEAKER) 348 mg/dL 70-110 TESTED AT [facility] [address] [place] [address] (test dqfn=4951) [facility] [address] BASIC METABOLIC [id number] 19:39:00 Test Item Value Reference Range Comments SODIUM (BEAKER) (test 132 meq/L 136-145 ppum=147) POTASSIUM (BEAKER) (test 3.9 meq/L 3.5-5.1 rbnv=563) CHLORIDE (BEAKER) (test 100 meq/L 98-107 yiie=693) CO2 (BEAKER) (test 17 meq/L 22-29 ohpv=658) BLOOD UREA NITROGEN 13 mg/dL 7-21 (BEAKER) (test lfit=254) CREATININE (BEAKER) (test 1.00 mg/dL 0.57-1.25 jiwn=215) GLUCOSE RANDOM (BEAKER) 524 mg/dL 70-105 (test rcpj=179) CALCIUM (BEAKER) (test 8.8 mg/dL 8.4-10.2 gwzd=739) EGFR (BEAKER) (test mL/min/1.73 sq m INSUFFICIENT CLINICAL DATA anbu=1730) TO CALCULATE ESTIMATED GFR. CBC W/PLT COUNT & AUTO [id number] 19:08:00 Test Item Value Reference Range Comments WHITE BLOOD CELL COUNT (BEAKER) (test ymcu=486) 10.0 K/ L 4.0-10.0 RED BLOOD CELL COUNT (BEAKER) (test dmyw=704) 4.59 M/ L 4.00-5.00 HEMOGLOBIN (BEAKER) (test ilxb=889) 15.0 GM/DL 12.0-15.0 HEMATOCRIT (BEAKER) (test aznu=173) 43.3 % 36.0-45.0 MEAN CORPUSCULAR VOLUME (BEAKER) (test ckbu=979) 94.3 fL 82.0-99.0 MEAN CORPUSCULAR HEMOGLOBIN (BEAKER) (test 32.6 pg 27.0-33.0 onfq=595) MEAN CORPUSCULAR HEMOGLOBIN CONC (BEAKER) (test 34.5 GM/DL 32.0-36.0 rkru=599) RED CELL DISTRIBUTION WIDTH (BEAKER) (test 12.8 % 10.3-14.2 kbel=209) PLATELET COUNT (BEAKER) (test cjhc=254) 238 K/CU MM 150-430 MEAN PLATELET VOLUME (BEAKER) (test nhxw=597) 7.3 fL 6.5-10.5 NUCLEATED RED BLOOD CELLS (BEAKER) (test 0 /100 WBC 0-0 vxmz=766) NEUTROPHILS RELATIVE PERCENT (BEAKER) (test 63 % glhp=435) LYMPHOCYTES RELATIVE PERCENT (BEAKER) (test 33 % ljpr=287) MONOCYTES RELATIVE PERCENT (BEAKER) (test 3 % wkof=773) EOSINOPHILS RELATIVE PERCENT (BEAKER) (test 0 % csqy=954) BASOPHILS RELATIVE PERCENT (BEAKER) (test 1 % ptzk=789) NEUTROPHILS ABSOLUTE COUNT (BEAKER) (test 6.30 K/ L 1.80-8.00 ozcf=455) LYMPHOCYTES ABSOLUTE COUNT (BEAKER) (test 3.24 K/ L 1.48-4.50 dsft=812) MONOCYTES ABSOLUTE COUNT (BEAKER) (test 0.27 K/ L 0.00-1.30 zbsb=993) EOSINOPHILS ABSOLUTE COUNT (BEAKER) (test 0.05 K/ L 0.00-0.50 bher=781) BASOPHILS ABSOLUTE COUNT (BEAKER) (test 0.09 K/ L 0.00-0.20 ftbn=542) 0.00POCT-GLUCOSE [id number] 18:37:00 Test Item Value Reference Range Comments POC-GLUCOSE METER (BEAKER) 458 mg/dL 70-110 TESTED AT [facility] [address] (test lycw=1812) [facility] [address]
--- OUTSIDE RECORDS SUMMARY | 2019-12-03 07:16 | XMS REPORT ---
:1990 Author Organization [employer] Care Team Providers Name Role Phone Jeff Gorman Provider Role Unavailable Allergies, Adverse Reactions, Alerts Substance Reaction Event Type N.K.D.A. Info Not Available Non Drug Allergy Problems Problem Type Condition Code Onset Dates Condition Status Assessment Pain in left shoulder M25.512 Active Assessment Left-sided chest pain R07.9 Active Assessment Other chronic pain G89.29 Active Problem Type 1 diabetes mellitus with E10.10 Active ketoacidosis without coma Problem Asthma J45.909 Active Problem Other chronic pain G89.29 Active Assessment Type 1 diabetes mellitus with E10.10 Active ketoacidosis without coma Assessment Asthma J45.909 Active Problem GERD (gastroesophageal reflux K21.9 Active disease) Medications Medication Code Code Instructions Start End Status Dosage System Date Date Fluticasone NDC 00291140166 50 MCG/ACT March 23, Active 1 spray in Propionate Nasally Once a 2019 each day nostril Tresiba ND 16158987391 200 units/mL Sep 19, Active 34 units Subcuteneous 2020 daily Fluticasone ND 35052082025 50 MCG/ACT Jul 02, Active 1 spray in Propionate Nasally Once a 2019 each day nostril Multivitamin ND 64341549783 - Orally Active as directed Protonix ND 43975448475 40 MG Orally Active 1 tablet Once a day Montelukast ND 67902041246 10 MG Orally Jul 02, Active 1 tablet Sodium Once a day 2019 ProAir HFA ND 17013080069 108 (90 Base) Jul 02, Active 2 puffs as MCG/ACT 2019 needed Inhalation every 6 hrs Reglan ND 71354029060 5 MG Orally Active 1 tablet Twice a day before meals NovoLog ND 73065932017 100 UNIT/ML Active as directed Subcutaneous Results No Known Results Summary Purpose [employer] Submission
[2019-12-03] MEDS ORDERED: NA CHLORIDE 0.9% 1,000 ML ONE ×2 (07:40→09:03)
[2019-12-03 08:03] LABS: Arterial Blood Carboxyhemoglob 1.6 % (0-1.5); Blood Gas Oxyhemoglobin 94.3 % (94-97); Blood O2 Saturation 97.1 % (92-98.5)
[2019-12-03 08:09] LABS: Protime INR 0.91
[2019-12-03 08:21] LABS: ALT/SGPT 32 U/L (12-78); AST/SGOT 22 U/L (15-37); Albumin 4.9 g/dL (3.4-5.0); Alkaline Phosphatase 220 U/L (45-117); BUN Blood Urea Nitrogen 30 mg/dL (7-18); Bilirubin Direct 0.1 mg/dL (0-0.2); Bilirubin Total 0.8 mg/dL (0.2-1.0); Lipase 27 U/L (73-393); Magnesium 2.7 mg/dL (1.8-2.4); Potassium 4.7 mmol/L (3.5-5.1); Protein, Total 10.5 g/dL (6.4-8.2); Sodium Level 133 mmol/L (136-145)
[2019-12-03 08:23] LABS: Bicarbonate 6 mmol/L (21-32); Glucose Level 710 mg/dL (74-106)
[2019-12-03 08:28] LABS: Urine Blood 1+ (NEG); Urine Glucose 2+ (NEG); Urine Protein 2+ (NEG)
[2019-12-03 08:40] LABS: Urine Bacteria >50 /HPF (<20); Urine Culture Reflex Order NOT NEEDED; Urine RBC <5 /HPF (NONE SEEN)
[2019-12-03] MEDS ORDERED: INSULIN -REGULAR HUMAN 100 UNIT in NA CHLORIDE 0.9% 100 ML IV SCH (09:00)
[2019-12-03] MEDS ORDERED: INSULIN -REGULAR HUMAN 50 UNIT/0.5 ML ML ONE (09:03)
[2019-12-03] MEDS ORDERED: CEFEPIME/SWI 2gm 2 GM/20 ML SYR IV ONE (09:15)
[2019-12-03] MEDS ORDERED: VANCOMYCIN/NS 1 gm 1 GM/250 ML BAG IV ONE (09:15)
[2019-12-03 09:16] LABS: Absolute Lymphocytes (CBC) 0.6 K/uL (0.7-4.9); Basophils % 0.9 % (0-1.3); Lymphocytes % 1.4 % (15.3-44.8); MPV 9.5 fL (7.6-11.3); RBC Red Blood Cell Count 5.36 M/uL (3.86-4.86)
--- NOTE | 2019-12-03 09:36 | ER ---
Nurse's Notes [facility] Name: Roseann Rosen Age: 29 yrs Sex: Female : 1990 Arrival Date: 12/03/2019 Time: 07:15 Bed 15 Private MD: Saida Hawley Diagnosis: Diabetes mellitus due to underlying condition with ketoacidosis without coma;Acute kidney failure Presentation: 12/02 07:29 Chief complaint: Patient states: vomiting and high blood sugar x 2 days. Family member ss reports that this morning bgl read, "high" and administered 30 units of insulin prior to arrival to ED. Coronavirus screen: Patient denies fever greater than 100.4F, cough, shortness of breath, or difficulty breathing. Proceed with normal triage process. Ebola Screen: Patient denies exposure to infectious person. Patient denies travel to an Ebola-affected area in the 21 days before illness onset. Initial Sepsis Screen: Does the patient meet any 2 criteria? RR > 20 per min. HR > 90 bpm. Does the patient have a suspected source of infection? No. Patient's initial sepsis screen is negative. Risk Assessment: Do you want to hurt yourself or someone else? Patient reports no desire to harm self or others. 07:29 Method Of Arrival: Ambulatory 07:29 Acuity: DRE 1 Historical: - Allergies: 07:33 No Known Allergies; ss - PMHx: 07:33 bone spurrs; Diabetes - IDDM; Gastroparesis; ss - PSHx: 07:33 L wrist surgery; L upper arm surgery; ss - Immunization history:: Adult Immunizations up to date. - Social history:: Smoking status: Patient denies any tobacco usage or history of. Screenin:11 Abuse screen: Denies threats or abuse. Denies injuries from another. Nutritional ph screening: No deficits noted. Tuberculosis screening: No symptoms or risk factors identified. Fall Risk None identified. Assessment: 08:12 General: Appears in no apparent distress. uncomfortable, slender, Behavior is calm, ph cooperative, appropriate for age, drowsy, Smells of ketones, Denies fever, feeling ill. Pain: Complains of pain in low back area. Neuro: Level of Consciousness is awake, obeys commands, lethargic, Oriented to person, place, situation. Cardiovascular: Capillary refill < 3 seconds in bilateral fingers Patient's skin is warm and dry. Respiratory: Airway is patent Respiratory effort is labored, shallow, Respiratory pattern is Kussmaul. GI: Reports nausea, vomiting, x 2 days. : Reports pain in bilateral in lower back Denies burning with urination, urinary frequency. Derm: Skin is intact, Skin is dry, Skin is normal, Skin temperature is cool. Musculoskeletal: Circulation, motion, and sensation intact. Range of motion: intact in all extremities. 09:30 Reassessment: Patient appears in no apparent distress at this time. No changes from ph previously documented assessment. Patient and/or family updated on plan of care and expected duration. Pain level reassessed. 10:30 Reassessment: Patient appears in no apparent distress at this time. No changes from ph previously documented assessment. Patient and/or family updated on plan of care and expected duration. Pain level reassessed. 12:14 Reassessment: Patient appears in no apparent distress at this time. No changes from ph previously documented assessment. Patient and/or family updated on plan of care and expected duration. Pain level reassessed. Pt awake but drowsy, respirations noted to have decreased to 20, down from 30 initially, pt denies nausea at this time, report called to CARLOS Shrestha, pt to be taken to ICU after repeat lactate is drawn by lab, lab at bedside. Vital Signs: 07:29 BP 138 / 91; Pulse 154; Resp 28; Temp 97.3(TE); Pulse Ox 98% on R/A; Weight 56.7 kg; ss Pain 0/10; 08:16 BP 130 / 92; Pulse 153; Resp 30; Pulse Ox 100% on R/A; ph 09:00 BP 133 / 98; Pulse 147; Resp 28; Pulse Ox 100% on R/A; ph 09:57 BP 134 / 81; Pulse 147; Resp 26; Pulse Ox 100% on R/A; ph 10:30 BP 125 / 86; Pulse 146; Resp 24; Pulse Ox 100% on R/A; ph 11:20 BP 116 / 75; Pulse 138; Resp 20; Pulse Ox 100% on R/A; ph 11:56 BP 102 / 77; Pulse 136; Resp 18; Temp 97.4; Pulse Ox 100% on R/A; ph ED Course: 07:15 Patient arrived in ED. am2 07:16 Saida Hawley FNP-C is Private Physician. am2 07:16 Jackeline Tee, CARLOS is Primary Nurse. ph 07:23 [facility] Longoria [facility] is [facility]. cp 07:23 Dorian Kumar MD is Attending Physician. cp 07:31 Triage completed. ss 07:33 Arm band placed on right wrist. ss 07:45 Missed attempt(s): 20 gauge in right antecubital area. Bleeding controlled, band aid dh3 applied, catheter tip intact. 07:50 Missed attempt(s): 22 gauge in left antecubital area. Bleeding controlled, band aid ph applied, catheter tip intact. 07:55 Initial lab(s) drawn, by ED staff, sent to lab. dh3 07:55 Inserted saline lock: 22 gauge in left antecubital area, using aseptic technique. Blood ph collected. 08:00 ABG drawn. ph 08:12 Patient has correct armband on for positive identification. Placed in gown. Bed in low ph position. Call light in reach. Side rails up X 1. monitoring tech on. Pulse ox on. NIBP on. Door closed. Noise minimized. Lights dimmed. Warm blanket given. Pillow given. Verbal reassurance given. Head of bed lowered. 08:15 Urine collected: clean catch specimen, clear. dh3 09:00 EKG done, by edger technician. reviewed by Arash BOOKER. tc 09:13 IV discontinued, intact, bleeding controlled, Pressure dressing applied, Swelling noted aa5 to 22 G to L AC. 09:15 Inserted saline lock: 22 gauge in right wrist, using aseptic technique. aa5 09:20 Inserted saline lock: 24 gauge in left hand, using aseptic technique. aa5 09:32 Teresa Hand MD is Hospitalizing Provider. cp 10:14 XRAY Chest (1 view) In Process Unspecified. EDMS 11:08 Repeat lab(s) drawn. by me, sent to lab. dh3 11:24 No provider procedures requiring assistance completed. Patient admitted, IV remains in ph place. Administered Medications: 08:00 Drug: NS 0.9% (20 ml/kg) 20 ml/kg {Note: 1000 mL given.} Route: IV; Rate: 1 bolus; ph Site: left antecubital; 10:30 Follow up: Response: No adverse reaction; IV Status: Completed infusion; IV Intake: ph 1000ml 09:11 CANCELLED (Physician Discretion): NS 0.9% (20 ml/kg) 10 ml/kg IV at 1 bolus once cp 09:15 Drug: Insulin Regular Human 10 units {Co-Signature: ss (Toña Lovell RN).} Route: IVP; ph Site: right wrist; 10:15 Follow up: Response: No adverse reaction; Blood sugar is lowered ph 09:24 Drug: Insulin Drip - (Insulin Regular Human 100 units, NS 0.9% 100 ml) {Co-Signature: ph ss (Toña Lovell RN).} Route: IV; Rate: 5 units/hr; Site: left hand; 11:55 Follow up: Rate change 3 units/hr ph 12:00 Follow up: Response: No adverse reaction; Blood sugar is lowered; IV Status: Infusion ph continued upon admission 09:40 Drug: NS 0.9% 1000 ml Route: IV; Rate: 200 ml/hr; Site: left hand; ph 12:00 Follow up: Response: No adverse reaction; IV Status: Infusion continued upon admission ph 09:45 Drug: Cefepime 2 grams {Note: administered IVP.} Route: IVPB; Rate: 200 ml/hr; Infused ph Over: 30 mins; Site: right wrist; 10:15 Follow up: Response: No adverse reaction; IV Status: Completed infusion ph 09:54 Drug: NS 0.9% 10 ml/kg Route: IV; Rate: bolus; Site: right hand; ph 11:00 Follow up: Response: No adverse reaction; IV Status: Completed infusion; IV Intake: ph 500ml 09:55 Drug: vancoMYCIN 1 grams Route: IVPB; Infused Over: 2 hrs; Site: right wrist; ph 12:00 Follow up: Response: No adverse reaction; IV Status: Completed infusion ph 10:19 Drug: Zofran (Ondansetron) 4 mg Route: IVP; Site: right wrist; ph 10:45 Follow up: Response: No adverse reaction; Nausea is decreased ph 10:21 Drug: Pepcid 20 mg Route: IVP; Site: right wrist; ph 10:45 Follow up: Response: No adverse reaction ph Intake: 10:30 IV: 1000ml; Total: 1000ml. ph 11:00 IV: 500ml; Total: 1500ml. ph Outcome: 09:34 Decision to Hospitalize by Provider. cp 12:54 Patient left the ED. ph 12:54 Admitted to ICU accompanied by nurse, accompanied by tech, via stretcher, room 1, with ph chart, Report called to CARLOS Shrestha 12:54 Condition: improved 12:54 Instructed on the need for admit. Signatures: Dispatcher [employer] EDNette Woodard RN RN aa5 Toña Lovell RN RN Sindhu Newell, customer solutions teammate EKG [facility] Jackeline Tee RN RN Arash Longoria, JHONY PA Saundra Gardner am2 Cecelia Cisneros 3 Toña Lovell RN
--- NOTE | 2019-12-03 09:36 | EDPHYS ---
Physician Documentation [facility] Name: Roseann Rosen Age: 29 yrs Sex: Female : 1990 Arrival Date: 12/03/2019 Time: 07:15 Bed 15 Private MD: Saida Hawley ED Physician Dorian Kumar HPI: 12/02 07:35 This 29 yrs old Female presents to ER via Ambulatory with complaints of DKA. cp 07:35 The patient or guardian reports hyperglycemia, that was potentially precipitated by no cp particular event, Treatment prior to arrival includes: taking additional insulin. 07:35 Associated signs and symptoms: Pertinent positives: vomiting, Pertinent negatives: cp diarrhea, fever. Current symptoms: In the emergency department the patient's symptoms are unchanged from the initial presentation, despite home interventions. Historical: - Allergies: 07:33 No Known Allergies; ss - PMHx: 07:33 bone spurrs; Diabetes - IDDM; Gastroparesis; ss - PSHx: 07:33 L wrist surgery; L upper arm surgery; ss - Immunization history:: Adult Immunizations up to date. - Social history:: Smoking status: Patient denies any tobacco usage or history of. ROS: 07:45 Constitutional: Positive for poor PO intake, Negative for fever. cp 07:45 Eyes: Negative for injury, pain, redness, and discharge. cp 07:45 ENT: Negative for drainage from ear(s), ear pain, sore throat, difficulty swallowing, difficulty handling secretions. 07:45 Cardiovascular: Negative for chest pain. 07:45 Respiratory: Negative for cough, wheezing. 07:45 Abdomen/GI: Positive for nausea and vomiting, anorexia, Negative for abdominal pain, diarrhea, constipation. 07:45 Skin: Negative for cellulitis, rash. 07:45 Neuro: Positive for weakness, Negative for altered mental status, headache. 07:45 All other systems are negative. Exam: 07:50 Constitutional: The patient appears alert, awake, non-diaphoretic, non-toxic, well cp developed, well nourished, in obvious distress, obviously ill. 07:50 Head/Face: Normocephalic, atraumatic. cp 07:50 Eyes: Pupils equal round and reactive to light, extra-ocular motions intact. Lids and lashes normal. Conjunctiva and sclera are non-icteric and not injected. Cornea within normal limits. Periorbital areas with no swelling, redness, or edema. 07:50 ENT: External ear(s): are unremarkable, Nose: is normal, Mouth: Lips: dry, Oral mucosa: pink and intact, moist, Posterior pharynx: Airway: no evidence of obstruction, patent, swelling, is not appreciated, erythema, is not appreciated, exudate, is not appreciated. 07:50 Neck: ROM/movement: is normal, is supple, without pain, no range of motions limitations, no meningismus, no nuchal rigidity. 07:50 Chest/axilla: Inspection: normal, Palpation: is normal, no crepitus, no tenderness. 07:50 Cardiovascular: Rate: tachycardic, Rhythm: regular. 07:50 Respiratory: the patient does not display signs of respiratory distress, Respirations: intercostal retractions, are absent, shallow respirations, that is moderate, Breath sounds: are clear throughout, no decreased breath sounds, no stridor, no wheezing. 07:50 Abdomen/GI: Inspection: abdomen appears normal, Bowel sounds: active, all quadrants, Palpation: abdomen is soft and non-tender, in all quadrants, voluntary guarding, is not appreciated, involuntary guarding, is not appreciated. 07:50 Back: pain, is absent. 07:50 Skin: no rash present. 07:50 Neuro: Orientation: to person, place \T\ time. Mentation: able to follow commands, slow to respond, Motor: moves all fours, general weakness without focal deficits, Sensation: no obvious gross deficits. 09:08 ECG was reviewed by the Attending Physician. cp Vital Signs: 07:29 BP 138 / 91; Pulse 154; Resp 28; Temp 97.3(TE); Pulse Ox 98% on R/A; Weight 56.7 kg; ss Pain 0/10; 08:16 BP 130 / 92; Pulse 153; Resp 30; Pulse Ox 100% on R/A; ph 09:00 BP 133 / 98; Pulse 147; Resp 28; Pulse Ox 100% on R/A; ph 09:57 BP 134 / 81; Pulse 147; Resp 26; Pulse Ox 100% on R/A; ph 10:30 BP 125 / 86; Pulse 146; Resp 24; Pulse Ox 100% on R/A; ph 11:20 BP 116 / 75; Pulse 138; Resp 20; Pulse Ox 100% on R/A; ph 11:56 BP 102 / 77; Pulse 136; Resp 18; Temp 97.4; Pulse Ox 100% on R/A; ph MDM: 07:31 Patient medically screened. 09:30 Data reviewed: vital signs, nurses notes, lab test result(s), EKG, I have discussed the cp patient's presentation/case with the attending Emergency Department Physician; and as a result, I will admit patient. 09:30 Test interpretation: by ED physician or midlevel provider: ECG. Response to treatment: cp the patient's symptoms have mildly improved after treatment. Physician consultation: Teresa Hand MD was called at 09:30, was contacted at 09:30, regarding admission, to the ICU, patient's condition. 12/02 07:33 Order name: Basic Metabolic Panel; Complete Time: 08:28 12/02 08:29 Interpretation: Normal except: NA 133; CL 96; CO2 6; GLUC 710; BUN 30; CRE 1.82; GFR 33. 12/02 07:33 Order name: CBC with Diff; Complete Time: 10:24 cp 12/02 07:33 Order name: LFT's; Complete Time: 08:28 cp 12/02 08:36 Interpretation: Normal except: ALK 220; TP 10.5; GLOB 5.6; A/G 0.9. cp 12/02 07:33 Order name: Magnesium; Complete Time: 08:28 cp 12/02 07:33 Order name: PT-INR; Complete Time: 08:28 cp 12/02 07:33 Order name: Lipase; Complete Time: 08:28 cp 12/02 08:29 Interpretation: Abnormal: LIP 27. cp 12/02 07:33 Order name: Urine Microscopic Only; Complete Time: 08:53 cp 12/02 08:53 Interpretation: Normal except: UBACT >50; SQEPI 20-50. cp 12/02 07:33 Order name: ABG; Complete Time: 08:35 cp 12/02 08:36 Interpretation: Abnormal: ABGPH 7.12; ABGPCO2 8.1; ABGPO2 137.0; ABGHCO3 2.5; ABGCOHB cp 1.6. 12/02 07:33 Order name: Ketone, Serum; Complete Time: 08:28 cp 12/02 08:09 Order name: Glucose, Ancillary Testing; Complete Time: 08:28 EDMS 12/02 08:22 Order name: Urine Dipstick--Ancillary (enter results); Complete Time: 08:35 eb 12/02 09:26 Interpretation: Normal except: UGLUC 2+; UKET 4+; UBLD 1+; UPROT 2+. cp 12/02 08:22 Order name: Urine --Ancillary (enter results); Complete Time: 08:35 eb 12/02 08:36 Order name: Lactate; Complete Time: 10:24 ph 12/02 10:25 Interpretation: Abnormal: LAC 4.1. cp 12/02 08:36 Order name: Procalcitonin; Complete Time: 10:24 ph 12/02 08:36 Order name: Blood Culture Adult (2) ph 12/02 08:41 Order name: Urine Culture cp 12/02 09:23 Order name: Manual Differential; Complete Time: 10:24 EDMS 12/02 10:25 Interpretation: Normal except: SEGS 94; LYM 1. cp 12/02 09:52 Order name: Basic Metabolic Panel EDMS 12/02 09:52 Order name: Basic Metabolic Panel; Complete Time: 11:48 EDMS 12/02 11:51 Interpretation: Normal except: CL 111; CO2 8; GLUC 358; BUN 25; CRE 1.32; GFR 48; CA cp 8.3. 12/02 09:52 Order name: Basic Metabolic Panel; Complete Time: 17:17 EDMS 12/02 09:52 Order name: Basic Metabolic Panel EDMS 12/02 09:52 Order name: CBC with Automated Diff EDMS 12/02 09:52 Order name: CBC with Automated Diff EDMS 12/02 09:52 Order name: CBC with Automated Diff EDMS 12/02 09:52 Order name: CBC with Automated Diff EDMS 12/02 09:52 Order name: Magnesium EDMS 12/02 09:52 Order name: Magnesium EDMS 12/02 09:52 Order name: Magnesium EDMS 12/02 09:52 Order name: Magnesium EDMS 12/02 12:03 Order name: Glucose, Ancillary Testing; Complete Time: 17:17 EDMS 12/02 07:33 Order name: EKG; Complete Time: 07:33 cp 12/02 07:33 Order name: Cardiac monitoring; Complete Time: 08:10 cp 12/02 07:33 Order name: EKG - Nurse/Tech; Complete Time: 09:57 cp 12/02 07:33 Order name: IV Saline Lock; Complete Time: 08:18 cp 12/02 07:33 Order name: Labs collected and sent; Complete Time: 08:18 cp 12/02 07:33 Order name: O2 Per Protocol; Complete Time: 08:18 cp 12/02 07:33 Order name: O2 Sat Monitoring; Complete Time: 08:18 cp 12/02 07:33 Order name: IV; Complete Time: 08:10 cp 12/02 07:33 Order name: Urine Dipstick-Ancillary (obtain specimen); Complete Time: 08:19 cp 12/02 07:33 Order name: Urine Test (obtain specimen); Complete Time: 08:19 cp 12/02 08:33 Order name: Labs - recollect needed: inside lab to recollect chemistry; Complete Time: eb 09:28 12/02 08:37 Order name: XRAY Chest (1 view); Complete Time: 10:24 cp 12/02 09:52 Order name: CONS Pharmacy Consult EDMS 12/02 09:52 Order name: NPO EDMS EC:08 Rate is 149 beats/min. Rhythm is regular. IL interval is normal. QRS interval is cp normal. QT interval is normal. Interpreted by me. Reviewed by me. Administered Medications: 08:00 Drug: NS 0.9% (20 ml/kg) 20 ml/kg {Note: 1000 mL given.} Route: IV; Rate: 1 bolus; ph Site: left antecubital; 10:30 Follow up: Response: No adverse reaction; IV Status: Completed infusion; IV Intake: ph 1000ml 09:11 CANCELLED (Physician Discretion): NS 0.9% (20 ml/kg) 10 ml/kg IV at 1 bolus once cp 09:15 Drug: Insulin Regular Human 10 units {Co-Signature: ss (Toña Lovell RN).} Route: IVP; ph Site: right wrist; 10:15 Follow up: Response: No adverse reaction; Blood sugar is lowered ph 09:24 Drug: Insulin Drip - (Insulin Regular Human 100 units, NS 0.9% 100 ml) {Co-Signature: ph ss (Toña Lovell RN).} Route: IV; Rate: 5 units/hr; Site: left hand; 11:55 Follow up: Rate change 3 units/hr ph 12:00 Follow up: Response: No adverse reaction; Blood sugar is lowered; IV Status: Infusion ph continued upon admission 09:40 Drug: NS 0.9% 1000 ml Route: IV; Rate: 200 ml/hr; Site: left hand; ph 12:00 Follow up: Response: No adverse reaction; IV Status: Infusion continued upon admission ph 09:45 Drug: Cefepime 2 grams {Note: administered IVP.} Route: IVPB; Rate: 200 ml/hr; Infused ph Over: 30 mins; Site: right wrist; 10:15 Follow up: Response: No adverse reaction; IV Status: Completed infusion ph 09:54 Drug: NS 0.9% 10 ml/kg Route: IV; Rate: bolus; Site: right hand; ph 11:00 Follow up: Response: No adverse reaction; IV Status: Completed infusion; IV Intake: ph 500ml 09:55 Drug: vancoMYCIN 1 grams Route: IVPB; Infused Over: 2 hrs; Site: right wrist; ph 12:00 Follow up: Response: No adverse reaction; IV Status: Completed infusion ph 10:19 Drug: Zofran (Ondansetron) 4 mg Route: IVP; Site: right wrist; ph 10:45 Follow up: Response: No adverse reaction; Nausea is decreased ph 10:21 Drug: Pepcid 20 mg Route: IVP; Site: right wrist; ph 10:45 Follow up: Response: No adverse reaction ph Disposition: 18:41 Co-signature as Attending Physician, Dorian Kumar MD I agree with the assessment and kdr plan of care. Disposition: 12/03/19 09:34 Hospitalization ordered by Teresa Hand for Inpatient Admission. Preliminary diagnosis are Diabetes mellitus due to underlying condition with ketoacidosis without coma, Acute kidney failure. - Bed requested for Intensive Care Unit. - Status is Inpatient Admission. ph - Condition is Critical. - Problem is new. - Symptoms have improved. Signatures: Dispatcher [employer] EDMS Dorian Kumar MD MD kdr Smirch, Shelby, RN RN Jackeline Tee RN RN Arash Longoria PA PA cp Botello, Elizabeth eb Shelby Smirch RN ss Corrections: (The following items were deleted from the chart) 09:11 09:10 NS 0.9% (20 ml/kg) 10 ml/kg IV at 1 bolus once ordered. cp cp 09:35 09:34 Hospitalization Ordered by Teresa Hand MD for Inpatient Admission. Preliminary cp diagnosis is Diabetes mellitus due to underlying condition with ketoacidosis without coma. Bed requested for Intensive Care Unit. Status is Inpatient Admission. Condition is Critical. Problem is new. Symptoms have improved. cp 10:40 09:35 12/03/2019 09:34 Hospitalization Ordered by Teresa Hand MD for Inpatient ss Admission. Preliminary diagnosis is Diabetes mellitus due to underlying condition with ketoacidosis without coma; Acute kidney failure. Bed requested for Intensive Care Unit. Status is Inpatient Admission. Condition is Critical. Problem is new. Symptoms have improved. cp 11:51 11:48 Normal except: CL 111; CO2 8; GLUC 358; BUN 25; CRE 1.32; GFR 48. cp cp 12:54 10:40 12/03/2019 09:34 Hospitalization Ordered by Teresa Hand MD for Inpatient ph Admission. Preliminary diagnosis is Diabetes mellitus due to underlying condition with ketoacidosis without coma; Acute kidney failure. Bed requested for Intensive Care Unit. Status is Inpatient Admission. Condition is Critical. Problem is new. Symptoms have improved. ss
[2019-12-03] MEDS ORDERED: NA CHLORIDE 0.9% 500 ML ONE (09:49)
[2019-12-03] MEDS: D5 0.45 NS 1,000 ML IV SCH ×3 (10:00→19:32)
[2019-12-03] MEDS ORDERED: FAMOTIDINE 20 MG/2 ML VIAL IV ONE (10:14)
[2019-12-03 10:21] LABS: Blood Morphology Comment NOTED (NOT SEEN); Macrocytosis 1+; Platelet Estimate ADEQ
--- NOTE | 2019-12-03 10:23 | RAD REPORT ---
EXAM DESCRIPTION: RAD - Chest Single View - 12/03/2019 10:14 am CLINICAL HISTORY: vomiting Chest pain. COMPARISON: Chest Single View dated 01/30/2018 FINDINGS: Portable technique limits examination quality. The lungs are grossly clear. The heart is normal in size. No displaced fractures. IMPRESSION: No acute intrathoracic process suspected.
--- NOTE | 2019-12-03 11:20 | EKG ---
Test Date: 2019-12-03 Test Time: 09:01:33 Hybrid Technologist: ELICIA MEASUREMENT RESULTS: Intervals: Rate: 149 MT: 130 QRSD: 72 QT: 334 QTc: 526 [place]: P: 62 MT: 130 QRS: 80 T: 69 INTERPRETIVE STATEMENTS: Sinus tachycardia ST elevation, probably due to early repolarization Borderline ECG No previous ECG available for comparison Electronically Signed On 12-03-19 11:20:07 CDT by Josh Goldman
[2019-12-03 11:39] LABS: Potassium 4.1 mmol/L (3.5-5.1)
[2019-12-03] MEDS: ONDANSETRON 4 MG/2 ML VIAL IV PRN ×2 (12:53→16:54)
[2019-12-03] MEDS: NACHLORIDE 0.45% 1,000 ML IV SCH ×2 (12:53→14:00)
--- NOTE | 2019-12-03 13:03 | P.HP ---
Patient History Date of Service: 12/03/19 Reason for admission: DKA History of Present Illness: Ms. Rosen is 29-year-old male female with a history of type 1 diabetes complicated by gastroparesis who presented to the hospital with 3 days history of nausea and vomiting. Patient has had limited to no p.o. intake since then. She reports compliance with her insulin prior to symptom onset. She denies abdominal pain, diarrhea, fevers & chills. Patient denies dysuria, endorses polyuria and polydipsia. Patient has had multiple episodes of DKA. Allergies No Known Allergies Allergy (Verified 01/31/18 05:55) Home Medications: Insulin Aspart [Novolog] See Protocol SQ SEECOM #1 vial 02/19/19 Pantoprazole Sodium [Protonix] 40 mg PO DAILY #30 tablet. 02/19/19 Insulin Degludec [Tresiba Flextouch U-200] 36 units SQ DAILY 12/03/19 - Past Medical/Surgical History Diabetic: Yes -: Diabetes Type 1 -: Bone Spurr -: Gastroparesis -: L wrist bone spurr -: L shouder bone spurr -: [place] teeth - Social History Smoking Status: Never smoker Alcohol use: No CD- Drugs: No Caffeine use: No Review of Systems General: Weakness Eyes: Unremarkable ENT: Unremarkable Respiratory: Unremarkable Cardiovascular: Unremarkable Gastrointestinal: Nausea, Vomiting, As per HPI Genitourinary: Unremarkable Musculoskeletal: Unremarkable Integumentary: Unremarkable Neurological: Unremarkable Physical Examination - Vital Signs Temperature: 97.3 F Blood Pressure: 138/98 Pulse: 158 Respirations: 14 - Physical Exam General: Alert HEENT: Atraumatic, PERRLA, Other (Dry MM), EOMI, Sclerae nonicteric Neck: Supple, 2+ carotid pulse no bruit, No LAD, Without JVD or thyroid abnormality Respiratory: Clear to auscultation bilaterally, Normal air movement Cardiovascular: Normal S1 S2, Irregular heart rate/rhythm Gastrointestinal: Normal bowel sounds, No tenderness Musculoskeletal: No tenderness Integumentary: No rashes Neurological: Normal gait, Normal speech, Normal strength at 5/5 x4 extr, Normal tone, Normal affect Lymphatics: No axilla or inguinal lymphadenopathy - Studies Laboratory Data (last 24 hrs) 12/03/19 07:55: PT 10.8, INR 0.91 12/03/19 07:55: WBC 38.8 H*, Hgb 16.2 H, Hct 53.0 H, Plt Count 386 12/03/19 07:55: Sodium 133 L, Potassium 4.7, BUN 30 H, Creatinine 1.82 H, Glucose 710 H*, Magnesium 2.7 H D, Total Bilirubin 0.8, AST 22, ALT 32, Alkaline Phosphatase 220 H, Lipase 27 L Assessment and Plan - Plan Ms. Rosen is 29 y/o F pw DKA # DKA- Probably uncontrolled DM. check hgba1c. Multiple episodes of DKA hospitalization. Type I DM -pH 7.12, pCO2 8.1, HCO3 2.5, AG 23, BG 710 on presentation -severely acidotic, will give 1 dose bicarb push. -DKA protocol initiated. BMP Q4; BG Q1 -npo. monitor electrolyte and correct as indicated. -Aggressive IV hydration -Follow closely and transition appropriately once all parameters are met. #Severe hypovolemia- Hemoconcentrated. -GI Losses due to DKA also contributory -Aggressive IV hydration #Acute gastroparesis- Nausea & Vomiting. Denies any fever or diarrhea. - Antiemetics. - pain control as needed. #SIRS-Rule out acute infection. No obvious source of infection. Procal as APR. -UA neg, CXR is unremarkable -Ceftriaxone empirically. #Lactic acidosis- severe hypovolemia - IV hydration. Trend #AGMA- multifactorial including MIKE. -2 amps Bicarb plus IV hydration -continue close monitoring. #MIKE-prerenal azotemia in the setting of DKA + hypovolemia -IV Hydration. -avoid nephrotoxin -trend cr. DVT ppx - SCD Patient is full code Discharge Plan: Home - Advance Directives Does patient have a Living Will: No Does patient have a Durable POA for Healthcare: No - Code Status/Comfort Care Code Status Assessed: Yes Code Status: Full Code
[2019-12-03] MEDS ORDERED: SODIUM BICARB 50 MEQ/50ML VIAL IV ONE (13:14)
[2019-12-03] MEDS: CEFTRIAXONE/SWI 1gm 1 GM/10 ML SYR IV SCH (13:23)
[2019-12-03] MEDS: PROMETHAZINE INJ 25 MG/ML AMP IV PRN ×2 (13:24→19:01)
[2019-12-03 15:32] LABS: Potassium 3.6 mmol/L (3.5-5.1)
[2019-12-03] MEDS ORDERED: INFLUENZA VACCINE (for 3y+) 0.5 ML DOSE IMVAC ONE (16:00)
[2019-12-03 19:40] LABS: Potassium 3.6 mmol/L (3.5-5.1)
[2019-12-03] MEDS ORDERED: KCL 20 MEQ/100 mL IVPB 20 MEQ/100 ML BAG IV SCH (20:00)
[2019-12-03] MEDS: D5W 1,000 ML IV SCH (23:27)
[2019-12-04 00:53] LABS: Potassium 3.7 mmol/L (3.5-5.1)
[2019-12-04] MEDS: PROMETHAZINE INJ 25 MG/ML AMP IV PRN ×2 (00:53→09:16)
[2019-12-04] MEDS: ONDANSETRON 4 MG/2 ML VIAL IV PRN ×3 (03:44→21:21)
[2019-12-04 05:07] LABS: Absolute Lymphocytes (CBC) 1.2 K/uL (0.7-4.9); Basophils % 0.9 % (0-1.3); Hematocrit 39.2 % (36.0-45.0); Lymphocytes % 7.3 % (15.3-44.8); RBC Red Blood Cell Count 4.23 M/uL (3.86-4.86)
[2019-12-04 07:10] LABS: BUN Blood Urea Nitrogen 16 mg/dL (7-18); Bicarbonate 20 mmol/L (21-32); Glucose Level 249 mg/dL (74-106); Magnesium 1.9 mg/dL (1.8-2.4); Phosphorus 1.7 mg/dL (2.5-4.9); Potassium 3.6 mmol/L (3.5-5.1); Sodium Level 144 mmol/L (136-145)
[2019-12-04] MEDS ORDERED: GLUCAGON 1 MG/VIAL IM PRN (07:39)
[2019-12-04] MEDS ORDERED: D50W 25 GM/50 ML SYRINGE/VIAL IV PRN (07:39)
[2019-12-04] MEDS ORDERED: INSULIN GLARGINE 100 UNITS/ML SQ SCH (08:00)
[2019-12-04] MEDS: CEFTRIAXONE/SWI 1gm 1 GM/10 ML SYR IV SCH (09:15)
[2019-12-04] MEDS: ENOXAPARIN 40 MG/0.4 ML SQ SCH (09:15)
[2019-12-04] MEDS: METOCLOPRAMIDE 10 MG/2mL INJ IV PRN ×2 (11:25→17:58)
[2019-12-04 13:10] LABS: Magnesium 1.8 mg/dL (1.8-2.4); Potassium 3.2 mmol/L (3.5-5.1)
--- NOTE | 2019-12-04 13:30 | P.PN ---
Subjective Date of Service: 12/04/19 Chief Complaint: DKA Subjective: Improving still on insulin drip, unable to tolerate po intake. did not respond to zofran, now started on reglan which is more effective. nausea. no vomiting currently. Physical Examination - Vital Signs Temperature: 99 F Blood Pressure: 118/77 Pulse: 106 Respirations: 18 Pulse Ox (%): 100 - Physical Exam General: Alert, In no apparent distress HEENT: Atraumatic, PERRLA, EOMI Neck: Supple, JVD not distended Respiratory: Clear to auscultation bilaterally, Normal air movement Cardiovascular: Regular rate/rhythm, Normal S1 S2 Gastrointestinal: Normal bowel sounds, No tenderness Musculoskeletal: No tenderness Integumentary: No rashes Neurological: Normal speech, Normal tone, Normal affect Lymphatics: No axilla or inguinal lymphadenopathy - Studies Laboratory Tests 12/03/19 12/03/19 12/04/19 07:55 07:55 04:43 WBC 16.8 H D RBC 4.23 D Hgb 13.1 D MPV 9.0 Lymphocytes % 7.3 L Sodium Potassium Chloride Estimated GFR Glucose Hemoglobin A1c 11.6 H Calcium Magnesium Procalcitonin 1.23 H 12/04/19 12:16 WBC RBC Hgb MPV Lymphocytes % Sodium 143 Potassium 3.2 L Chloride 111 H Estimated GFR 89 L Glucose 212 H Hemoglobin A1c Calcium 8.7 Magnesium 1.8 Procalcitonin Microbiology Data (last 24 hrs): 12/03/19 09:10 Blood - Blood Anaerobic Blood Culture - Final Medications List Reviewed: Yes Assessment & Plan Physician Review Additional Text: Ms. Rosen is 29 y/o F pw DKA # DKA- Probably uncontrolled DM. Hgba1c 11.2% Multiple episodes of DKA hospitalization. Type I DM -pH 7.12, pCO2 8.1, HCO3 2.5, AG 23, BG 710 on presentation -DKA resolved. Still on insulin drip due to intractable N/V -will transition to subcu #Severe hypovolemia- Hemoconcentrated. -GI Losses due to DKA also contributory -Improved. #Acute gastroparesis- Nausea & Vomiting. Denies any fever or diarrhea. - Antiemetics. Responded well to reglan. -Initiate clear liquid diet and advance as tolerated. Transition with po intake. -need tight glycemic control. #SIRS-Rule out acute infection. No obvious source of infection. Procal as APR. -UA neg, CXR is unremarkable -Ceftriaxone empirically. #Lactic acidosis- severe hypovolemia - resolved. #AGMA- multifactorial including MIKE. -improved. #MIKE-prerenal azotemia in the setting of DKA + hypovolemia -IV Hydration. -avoid nephrotoxin -resolved DVT ppx - SCD Patient is full code Plan- transition to subcu insulin. Transfer out of icu. possible dc home in a.m if tolerating po intake.
[2019-12-04] MEDS: D5W 1,000 ML IV SCH (13:55)
[2019-12-04] MEDS: PANTOPRAZOLE 40MG TABLET PO SCH (14:52)
[2019-12-04] MEDS ORDERED: POTASSIUM CL SA 10 MEQ TAB PO ONE ×3 (15:00→23:25)
[2019-12-04] MEDS ORDERED: KCL 20 MEQ/100 mL IVPB 20 MEQ/100 ML BAG IV SCH (15:00)
[2019-12-04] MEDS ORDERED: MAGNESIUM SULFATE 1 gm IVPB 1 GM/100 ML BAG IV ONE (15:00)
[2019-12-04 17:20] LABS: Magnesium 2.4 mg/dL (1.8-2.4); Potassium 3.2 mmol/L (3.5-5.1)
[2019-12-04 19:18] LABS: Barbiturates NEGATIVE (NEGATIVE); Benzodiazepines NEGATIVE (NEGATIVE); Cocaine NEGATIVE (NEGATIVE); METHAMPHETAM NEGATIVE (NEGATIVE); Methadone NEGATIVE (NEGATIVE); Opiates NEGATIVE (NEGATIVE); Phencyclidine NEGATIVE (NEGATIVE); THC Cannibis NEGATIVE (NEGATIVE)
[2019-12-04 21:47] LABS: Magnesium 2.4 mg/dL (1.8-2.4); Potassium 3.6 mmol/L (3.5-5.1)
[2019-12-05] MEDS: METOCLOPRAMIDE 10 MG/2mL INJ IV PRN ×3 (03:04→17:40)
[2019-12-05] MEDS: D5W 1,000 ML IV SCH (04:40)
[2019-12-05 05:50] LABS: RBC Red Blood Cell Count 4.29 M/uL (3.86-4.86)
[2019-12-05 05:51] VITALS: BMI 22.1
[2019-12-05 05:51] LABS: Absolute Lymphocytes (CBC) 2.1 K/uL (0.7-4.9); Basophils % 0.5 % (0-1.3); Hematocrit 39.4 % (36.0-45.0); Lymphocytes % 16.3 % (15.3-44.8); MPV 9.7 fL (7.6-11.3)
[2019-12-05 06:23] LABS: Blood Morphology Comment NOT SEEN (NOT SEEN); Platelet Estimate ADEQ; Urine White Blood Cell Casts OK
[2019-12-05 06:28] LABS: Magnesium 2.2 mg/dL (1.8-2.4); Phosphorus 1.1 mg/dL (2.5-4.9); Potassium 3.6 mmol/L (3.5-5.1)
[2019-12-05] MEDS ORDERED: POTASSIUM PHOS IN 0.9 % NACL 15 MMOL/250 ML BAG IV ONE (06:47)
[2019-12-05] MEDS: PANTOPRAZOLE 40MG TABLET PO SCH ×2 (08:45→16:50)
[2019-12-05] MEDS: CEFTRIAXONE/SWI 1gm 1 GM/10 ML SYR IV SCH (08:45)
[2019-12-05] MEDS: ENOXAPARIN 40 MG/0.4 ML SQ SCH (08:45)
--- NOTE | 2019-12-05 10:28 | P.PN ---
Subjective Date of Service: 12/05/19 Chief Complaint: DKA more awake, continues to have nausea, intermittent vomiting, required reglan overnight. Denies any new concern. Physical Examination - Vital Signs Temperature: 98.1 F Blood Pressure: 130/84 Pulse: 94 Respirations: 16 Pulse Ox (%): 97 - Physical Exam General: Alert, In no apparent distress HEENT: Atraumatic, PERRLA, EOMI Neck: Supple, JVD not distended Respiratory: Clear to auscultation bilaterally, Normal air movement Cardiovascular: Regular rate/rhythm, Normal S1 S2 Gastrointestinal: Normal bowel sounds, No tenderness Musculoskeletal: No tenderness Integumentary: No rashes Neurological: Normal speech, Normal tone, Normal affect Lymphatics: No axilla or inguinal lymphadenopathy - Studies Microbiology Data (last 24 hrs): 12/03/19 08:15 Clean Catch Urine [place] Count - Final <10,000 CFU/ML. 12/03/19 08:15 Clean Catch Urine - Final MIXED CATHY. 12/03/19 09:10 Blood - Blood Anaerobic Blood Culture - Final Medications List Reviewed: Yes Assessment & Plan Physician Review Additional Text: Ms. Rosen is 29 y/o F pw DKA # DKA- Probably uncontrolled DM. Hgba1c 11.2% Multiple episodes of DKA hospitalization. Type I DM -pH 7.12, pCO2 8.1, HCO3 2.5, AG 23, BG 710 on presentation -DKA resolved. Still on insulin drip due to intractable N/V. will give low dose lantus, and turn off insulin drip. -clear liquid diet and advance as tolerated. -transfer to floor. #Severe hypovolemia- Hemoconcentrated. -GI Losses due to DKA also contributory -Improved. #Acute gastroparesis- Nausea & Vomiting. Denies any fever or diarrhea. - Antiemetics. Responded well to reglan. -Initiate clear liquid diet and advance as tolerated. Transition with po intake. -need tight glycemic control. #SIRS-Rule out acute infection. No obvious source of infection. Procal as APR. -UA neg, CXR is unremarkable -Ceftriaxone empirically. #Lactic acidosis- severe hypovolemia - resolved. #AGMA- multifactorial including MIKE. -improved. #MIKE-prerenal azotemia in the setting of DKA + hypovolemia -IV Hydration. -avoid nephrotoxin -resolved DVT ppx - SCD Patient is full code Plan- transition to subcu insulin. Transfer out of icu. possible dc home in a.m if tolerating po intake.
[2019-12-05] MEDS ORDERED: D50W 25 GM/50 ML SYRINGE/VIAL IV PRN ×3 (11:42→13:45)
[2019-12-05] MEDS ORDERED: GLUCAGON 1 MG/VIAL IM PRN ×3 (11:42→13:45)
[2019-12-05] MEDS ORDERED: INSULIN GLARGINE 100 UNITS/ML SQ ONE (13:00)
[2019-12-05] MEDS: NA CHLORIDE 0.9% 1,000 ML IV SCH (14:00)
[2019-12-05] MEDS: ONDANSETRON 4 MG/2 ML VIAL IV PRN ×2 (16:50→21:43)
[2019-12-05] MEDS: INSULIN -REGULAR HUMAN 50 UNIT/0.5 ML ML SQ SCH ×2 (16:50→21:05)
[2019-12-06] MEDS: NA CHLORIDE 0.9% 1,000 ML IV SCH ×2 (03:38→16:34)
[2019-12-06] MEDS: ONDANSETRON 4 MG/2 ML VIAL IV PRN ×3 (03:44→23:26)
[2019-12-06 05:36] LABS: Absolute Lymphocytes (CBC) 2.1 K/uL (0.7-4.9); Basophils % 0.9 % (0-1.3); Hematocrit 35.9 % (36.0-45.0); Lymphocytes % 27.3 % (15.3-44.8); MPV 9.4 fL (7.6-11.3); RBC Red Blood Cell Count 3.88 M/uL (3.86-4.86)
[2019-12-06 05:50] LABS: BUN Blood Urea Nitrogen 14 mg/dL (7-18); Bicarbonate 23 mmol/L (21-32); Glucose Level 329 mg/dL (74-106); Phosphorus 2.9 mg/dL (2.5-4.9); Potassium 4.4 mmol/L (3.5-5.1); Sodium Level 140 mmol/L (136-145)
[2019-12-06] MEDS ORDERED: GLUCAGON 1 MG/VIAL IM PRN (08:48)
[2019-12-06] MEDS ORDERED: D50W 25 GM/50 ML SYRINGE/VIAL IV PRN (08:48)
[2019-12-06] MEDS ORDERED: INSULIN GLARGINE 100 UNITS/ML SQ ONE (08:49)
[2019-12-06] MEDS: INSULIN -REGULAR HUMAN 50 UNIT/0.5 ML ML SQ SCH ×4 (08:54→21:23)
[2019-12-06] MEDS: PANTOPRAZOLE 40MG TABLET PO SCH ×2 (08:57→16:36)
[2019-12-06] MEDS: METOCLOPRAMIDE 10MG/10ML UCUP PO SCH ×3 (08:57→21:19)
[2019-12-06] MEDS: ENOXAPARIN 40 MG/0.4 ML SQ SCH (08:57)
[2019-12-06] MEDS: METOCLOPRAMIDE 10 MG/2mL INJ IV PRN (09:01)
--- NOTE | 2019-12-06 10:58 | P.PN ---
Subjective Date of Service: 12/06/19 Chief Complaint: DKA still unable to tolerate po intake. nausea and post prandial vomiting. Physical Examination - Vital Signs Temperature: 98.6 F Blood Pressure: 112/61 Pulse: 87 Respirations: 16 Pulse Ox (%): 97 - Physical Exam General: Alert, In no apparent distress HEENT: Atraumatic, PERRLA, EOMI Neck: Supple, JVD not distended Respiratory: Clear to auscultation bilaterally, Normal air movement Cardiovascular: Regular rate/rhythm, Normal S1 S2 Gastrointestinal: Normal bowel sounds, Tenderness (mild epigastric) Musculoskeletal: No tenderness Integumentary: No rashes Neurological: Normal speech, Normal tone, Normal affect Lymphatics: No axilla or inguinal lymphadenopathy - Studies Microbiology Data (last 24 hrs): 12/03/19 08:15 Clean Catch Urine [place] Count - Final <10,000 CFU/ML. 12/03/19 08:15 Clean Catch Urine - Final MIXED CATHY. Medications List Reviewed: Yes Assessment & Plan Physician Review Additional Text: Ms. Rosen is 29 y/o F pw DKA # DKA- Probably uncontrolled DM. Hgba1c 11.2% Multiple episodes of DKA hospitalization. Type I DM -pH 7.12, pCO2 8.1, HCO3 2.5, AG 23, BG 710 on presentation -DKA resolved. -clear liquid diet and advance as tolerated. -transferred to floor. -lower home dose lantus due to poor po intake. #Severe hypovolemia- Hemoconcentrated. -GI Losses due to DKA also contributory -Improved. #Acute gastroparesis- Nausea & Vomiting. Denies any fever or diarrhea. - Antiemetics. schedule reglan TID. -Initiated clear liquid diet and advanced and did not tolerated. Will schedule reglan and monitor for tolerance. -consult GI -need tight glycemic control. #SIRS-Rule out acute infection. No obvious source of infection. Procal as APR. -UA neg, CXR is unremarkable -DC abx. no evidence of acute infection. #Lactic acidosis- severe hypovolemia - resolved. #AGMA- multifactorial including MIKE. -improved. #MIKE-prerenal azotemia in the setting of DKA + hypovolemia -IV Hydration. -avoid nephrotoxin -resolved DVT ppx - SCD Patient is full code Plan- DC home once able to tolerate po intake.
[2019-12-06] MEDS: ERYTHROMYCIN 250 MG PO SCH (16:37)
--- NOTE | 2019-12-06 16:45 | CON ---
Reason For Consultation: Nausea, vomiting, gastroparesis. History Of Presenting Illness: Patient is a 29-year-old woman, who appears to be noncompliant with c are. She has a history of diabetes mellitus type 1 and was diagnosed with gastroparesis around a yea r ago by Dr. Selby, but she is not following him anymore. She does report a history of EGD 1 year a go. Also, her sugars remained quite uncontrolled. She states that at home, they ranged between 200 to 400. Unclear if it is due to noncompliance with diet or medication or may be both. Patient was a dmitted a few days ago with diabetic ketoacidosis, abdominal pain, nausea, vomiting. Her DKA seems t o have improved, even though today her sugar on the chemistry panel was 409. She states that she con tinues to have nausea. She also has multiple episodes of DKA in the past. Allergies: NO KNOWN DRUG ALLERGIES. Home Medications: As in the chart. She also is taking pantoprazole. Past Medical History: History of diabetes plus gastroparesis. Past Surgical History: Noncontributory. Social History: Denies toxic habits. Review of Systems: GI: As in HPI, otherwise negative. Endocrinology: As in HPI, otherwise negative. Remainder of 10-point review of systems is negative. Family History: Noncontributory. Physical Examination: Vital Signs: On presentation, temperature 97.3 degrees Fahrenheit, blood pressure 138/98, pulse 120, respiratory rate 14. HEENT: Head atraumatic, normocephalic. Pupils equally reactive. Neck: Supple. Chest: Clear to auscultation bilaterally. Abdomen: Soft, nontender, nondistended. Bowel sounds present. Extremities: No pedal edema. Laboratory Data: Reviewed. She did have significant leukocytosis initially, but now it is normal at 7.8, hemoglobin is 11.9, and it appeared to be hemoconcentrated before. Normal coagulation profile. Chemistry panel reviewed. Lipase was 27. There was some elevation of alkaline phosphatase, but T/ALT normal. Impression: A 29-year-old woman with uncontrolled diabetes due to noncompliance with medication or d iet or versus both. Also has history of diabetic gastroparesis, which is a complication for her cond ition. Plan: Continue current management. Continue PPI. She is already on Reglan, but I would not recomme nd continuing Reglan for more than 2 weeks. So, this would need to be stopped before she gets discha rged and not be taken on an outpatient basis due to extrapyramidal side effects. I am going to try h er on erythromycin oral, which is a strong prokinetic agent, but it is temporary as it has a tachyphy laxis response. Mainstay of therapy for her right now is low-fiber soft diet when she resumes the re gular food as well as strict control of sugars. This was discussed with the patient. US/MODL Voice ID: [id number] Report ID: [id number]
[2019-12-06] MEDS ORDERED: INSULIN GLARGINE 100 UNITS/ML SQ SCH ×2 (17:00→21:00)
[2019-12-06] MEDS: INSULIN GLARGINE 100 UNITS/ML SQ SCH (21:22)
[2019-12-07] MEDS: ERYTHROMYCIN 250 MG PO SCH ×3 (00:05→16:49)
[2019-12-07] MEDS: ONDANSETRON 4 MG/2 ML VIAL IV PRN ×2 (04:54→11:09)
[2019-12-07] MEDS: NA CHLORIDE 0.9% 1,000 ML IV SCH ×2 (04:54→19:20)
[2019-12-07] MEDS: INSULIN -REGULAR HUMAN 50 UNIT/0.5 ML ML SQ SCH ×4 (08:05→20:19)
[2019-12-07] MEDS: PANTOPRAZOLE 40MG TABLET PO SCH ×2 (08:05→16:05)
[2019-12-07] MEDS: ENOXAPARIN 40 MG/0.4 ML SQ SCH (08:06)
[2019-12-07] MEDS: METOCLOPRAMIDE 10MG/10ML UCUP PO SCH ×3 (08:06→20:18)
--- NOTE | 2019-12-07 09:36 | P.PN ---
Subjective Date of Service: 12/07/19 Chief Complaint: DKA Patient seen and examined chart reviewed and case discussed with RN. Patient had episode of vomiting yesterday. Has been started on erythromycin. Will advance diet to full liquids for this afternoon for trial Review of Systems 10-point ROS is otherwise unremarkable Gastrointestinal: As per HPI Physical Examination - Vital Signs Temperature: 98.2 F Blood Pressure: 108/69 Pulse: 78 Respirations: 20 Pulse Ox (%): 98 - Physical Exam General: Alert, Oriented x3, Mild distress HEENT: Atraumatic, PERRLA, EOMI Neck: Supple, JVD not distended Respiratory: Clear to auscultation bilaterally, Normal air movement Cardiovascular: Regular rate/rhythm, Normal S1 S2 Gastrointestinal: Normal bowel sounds, Soft and benign, Non-distended, No tenderness Musculoskeletal: No tenderness Integumentary: No rashes Neurological: Normal speech, Normal tone, Cranial nerves 3-12 intact, Normal affect - Studies Microbiology Data (last 24 hrs): Cultures no growth to date Medications List Reviewed: Yes Assessment And Plan Discharge Plan: Home Plan to discharge in: 24 Hours Physician Review Additional Text: Ms. Rosen is 29 y/o F pw DKA # DKA- Probably uncontrolled DM. Hgba1c 11.2% Multiple episodes of DKA hospitalization. Type I DM -DKA resolved. -clear liquid diet and advance as tolerated. -transferred to floor. -lower home dose lantus due to poor po intake. #Severe hypovolemia- Hemoconcentrated. -GI Losses due to DKA also contributory -Improved. Continue IV fluids #Acute gastroparesis- Nausea & Vomiting. Denies any fever or diarrhea. - Antiemetics. schedule reglan TID. -will give trial of full liquids today patient received erythromycin yesterday -appreciate GI input -need tight glycemic control. #SIRS-Rule out acute infection. No obvious source of infection. Procal as APR. -UA neg, CXR is unremarkable -DC abx. no evidence of acute infection. Cultures show no growth to date #Lactic acidosis- severe hypovolemia - resolved. Secondary to DKA #AGMA- multifactorial including MIKE. -improved. #MIKE-prerenal azotemia in the setting of DKA + hypovolemia -IV Hydration. -avoid nephrotoxin and NSAIDs -resolved. -continue to monitor creatinine level. DVT ppx - SCD Patient is full code Plan- DC home once able to tolerate po intake. Check urine test
[2019-12-07] MEDS: INSULIN GLARGINE 100 UNITS/ML SQ SCH (20:18)
[2019-12-08] MEDS: ERYTHROMYCIN 250 MG PO SCH ×2 (00:09→09:10)
[2019-12-08 00:21] VITALS: O2SAT 99
[2019-12-08] MEDS: INSULIN -REGULAR HUMAN 50 UNIT/0.5 ML ML SQ SCH ×2 (07:30→12:28)
[2019-12-08] MEDS: NA CHLORIDE 0.9% 1,000 ML IV SCH (09:09)
[2019-12-08] MEDS: PANTOPRAZOLE 40MG TABLET PO SCH (09:10)
[2019-12-08] MEDS: METOCLOPRAMIDE 10MG/10ML UCUP PO SCH (09:10)
[2019-12-08] MEDS: ENOXAPARIN 40 MG/0.4 ML SQ SCH (09:11)
[2019-12-08 10:28] LABS: Absolute Lymphocytes (CBC) 3.5 K/uL (0.7-4.9); Basophils % 0.7 % (0-1.3); Hematocrit 38.7 % (36.0-45.0); Lymphocytes % 41.3 % (15.3-44.8); MPV 9.5 fL (7.6-11.3); RBC Red Blood Cell Count 4.18 M/uL (3.86-4.86)
[2019-12-08 11:11] LABS: ALT/SGPT 18 U/L (12-78); AST/SGOT 17 U/L (15-37); Albumin 2.7 g/dL (3.4-5.0); Alkaline Phosphatase 109 U/L (45-117); BUN Blood Urea Nitrogen 6 mg/dL (7-18); Bicarbonate 25 mmol/L (21-32); Bilirubin Total 0.5 mg/dL (0.2-1.0); Glucose Level 273 mg/dL (74-106); Potassium 3.9 mmol/L (3.5-5.1); Protein, Total 6.1 g/dL (6.4-8.2); Sodium Level 138 mmol/L (136-145)
--- NOTE | 2019-12-08 13:08 | P.DS ---
Admission Date: 12/03/19 Discharge Date: 12/08/19 Disposition: ROUTINE DISCHARGE Discharge Condition: FAIR Reason for Admission: DKA Consultations: GI Dr. Luu Brief History of Present Illness: From H and P Ms. Rosen is 29-year-old male female with a history of type 1 diabetes complicated by gastroparesis who presented to the hospital with 3 days history of nausea and vomiting. Patient has had limited to no p.o. intake since then. She reports compliance with her insulin prior to symptom onset. She denies abdominal pain, diarrhea, fevers & chills. Patient denies dysuria, endorses polyuria and polydipsia. Patient has had multiple episodes of DKA. Hospital Course: Patient is a 29-year-old female who comes in with DKA. Patient also has history of diabetic gastroparesis. Patient's hemoglobin A1c is 11.2%. Patient does have noncompliance. Patient was started on insulin her DKA resolved and she was able to come out of the ICU. However patient had continued intractable nausea and vomiting which she says usually occurs with DKA. Her diabetic gastroparesis was treated with IV anti medics including Reglan. GI was also consulted. Patient was started on erythromycin. Patient had improvement in her symptoms and was able to tolerate a full liquid diet. Patient was then cleared from GI standpoint. She understands that she needs tight glycemic control as this will improve for diabetic gastroparesis. She needs to follow up with endocrinology regarding her diabetes. Patient also needs to follow up with that GI. For now she will be on a full liquid diet and advance to low fiber soft diet. She has to eat small meals in order for her body to digest them properly. Her Lantus dose was decreased due to lower blood sugar levels and less oral intake. Patient has diabetic supplies and understands signs of hypoglycemia. # DKA- Probably uncontrolled DM. Hgba1c 11.2% Multiple episodes of DKA hospitalization. Type I DM -DKA resolved. #Severe hypovolemia- resolved #Acute diabetic gastroparesis- improved #SIRS-likely due to DKA no acute infection #Lactic acidosis- severe hypovolemia - resolved. Secondary to DKA #AGMA- multifactorial including MIKE. -improved. #MIKE-resolved Vital Signs/Physical Exam: Temp Pulse Resp BP Pulse Ox 97.7 F 72 18 135/87 99 12/08/19 08:00 12/08/19 08:00 12/08/19 08:00 12/08/19 08:00 12/08/19 08:00 General: Alert, In no apparent distress, Oriented x3 HEENT: Atraumatic, PERRLA, EOMI Neck: Supple, JVD not distended Respiratory: Clear to auscultation bilaterally, Normal air movement Cardiovascular: Regular rate/rhythm, Normal S1 S2 Gastrointestinal: Normal bowel sounds, Soft and benign, Non-distended, No tenderness Musculoskeletal: No tenderness Integumentary: No rashes Neurological: Normal speech, Normal strength at 5/5 x4 extr, Normal tone, Normal affect Laboratory Data at Discharge: WBC 8.6 K/uL (4.3-10.9) 12/08/19 10:05 Hgb 12.8 g/dL (12.0-15.0) 12/08/19 10:05 Hct 38.7 % (36.0-45.0) 12/08/19 10:05 Plt Count 238 K/uL (152-406) D 12/08/19 10:05 PT 10.8 SECONDS (9.5-12.5) 12/03/19 07:55 INR 0.91 12/03/19 07:55 Sodium 138 mmol/L (136-145) 12/08/19 10:05 Potassium 3.9 mmol/L (3.5-5.1) 12/08/19 10:05 BUN 6 mg/dL (7-18) L 12/08/19 10:05 Creatinine 0.54 mg/dL (0.55-1.3) L 12/08/19 10:05 Glucose 273 mg/dL (74-106) H 12/08/19 10:05 Phosphorus 2.9 mg/dL (2.5-4.9) D 12/06/19 05:15 Magnesium 2.0 mg/dL (1.8-2.4) 12/06/19 05:15 Total Bilirubin 0.5 mg/dL (0.2-1.0) 12/08/19 10:05 AST 17 U/L (15-37) 12/08/19 10:05 ALT 18 U/L (12-78) 12/08/19 10:05 Alkaline Phosphatase 109 U/L (45-117) 12/08/19 10:05 Lipase 27 U/L (73-393) L 12/03/19 07:55 Home Medications: Insulin Aspart [Novolog] See Protocol SQ SEECOM #1 vial 02/19/19 Pantoprazole Sodium [Protonix] 40 mg PO DAILY #30 tablet. 02/19/19 Erythromycin Base [Erythromycin] 250 mg PO TID #21 tablet 12/08/19 Insulin Degludec [Tresiba Flextouch U-200] 15 units SQ DAILY #1 insuln.pen 12/07 Ondansetron [Zofran] 4 mg PO Q6H PRN #20 tab 12/08/19 New Medications: Erythromycin Base [Erythromycin] 250 mg PO TID #21 tablet Insulin Degludec [Tresiba Flextouch U-200] 15 units SQ DAILY #1 insuln.pen Ondansetron [Zofran] 4 mg PO Q6H PRN #20 tab PRN Reason: Nausea / Vomiting Patient Discharge Instructions: Follow up with primary care physician in 2-3 days. Follow up with endocrinology in 2-4 weeks. Follow up with gastroenterology in 2 weeks. Return to ER for worsening condition Diet: Full liquids. Small meals Activity: Ad carlos Time spent managing pt's care (in minutes): 38
[2019-12-08 14:14] VITALS: BP 108/66; TEMP 98.1
== END 2019-12-08 14:06 | disposition home or self-care (01) | DRG 638 ==
LOC: ER 07:14 → ERHOLD 09:48 → 3RD-ICU 12:12 → 2ND 12-05 14:40
PROVIDERS: ADMIT Hospitalist; ATTEND Family Medicine
DX: E10.10 Type 1 diabetes mellitus with ketoacidosis without coma (principal); R65.10 Systemic inflammatory response syndrome (SIRS) of non-infectious origin without acute organ dysfunction; N17.9 Acute kidney failure, unspecified; Z79.4 Long term (current) use of insulin; E10.43 Type 1 diabetes mellitus with diabetic autonomic (poly)neuropathy; K31.84 Gastroparesis; E86.1 Hypovolemia; Z91.14 Patient's other noncompliance with medication regimen; Z79.899 Other long term (current) drug therapy; Z91.11 Patient's noncompliance with dietary regimen
CPT/HCPCS: 36415; 71045; 80048; 80053; 80076; 80307; 81003; 81015; 81025; 82010; 82805; 82947; 83036; 83605; 83690; 83735; 84100; 84145; 85025; 85610; 87040; 87086; 87088; 93005; 96361; 96365; 96366; 96367; 96368; 96375; 99291; 99292; J0692; J0696; J1650; J1815; J2405; J2550; J2765; J3370; J3475; J7030; J7040; J7799